=== PATIENT | male | born 1950 | race Caucasian/White ===

== ENCOUNTER 2019-11-10 14:40 | Emergency (ER) | payer MEDICARE, SELFPAY ==
--- NOTE | ~2019-11-10 | XR_ITS ---
EXAMINATION: XR chest 1V portable DATE: 11/10/2019 15:57 INDICATION: Shortness of breath TECHNIQUE: frontal view of the chest was obtained. COMPARISON: Chest radiograph dated 09/06/18 FINDINGS: Calcified nodule at the right lung base. Lungs remain otherwise clear with no focal airspace opacitie s, pulmonary edema, pleural effusion or pneumothorax. The cardiomediastinal silhouette is normal. Mil d scattered degenerative skeletal changes. IMPRESSION: 1. No acute cardiopulmonary disease. Reviewed, dictated and finalized at location A. [employer]
[2019-11-10 14:45] VITALS: BP 121/59; PULSE 72; RESP 20; O2SAT 100
--- NOTE | 2019-11-10 15:40 | ED.ARRPALP ---
HPI - Arrhythmia/Palpitations General Chief Complaint: Shortness of Breath/Dyspnea Time Seen by Provider: 11/10/19 15:34 Source: patient and RN notes reviewed Mode of arrival: ambulatory Limitations: no limitations History of Present Illness HPI narrative: A 69 y/o male, with a hx of A-fib, presents to the ED with palpitations and a rapid HR beginning 3 hours ago. He states that he took his HR while at home and it was in the 120's, so he decided to come to the ED. He reports associated SOB. He denies anything aggravating or alleviating his symptoms in particular, but notes that they have since resolved. He denies any CP, fevers, chills, cough, N/V/D, ABD pain, or any other medical complaints at this time. MD complaint: rapid heart beat and palpitations Onset (ago): hour(s) (3) Duration: now resolved Arrhythmia history: atrial fibrillation Associated symptoms: shortness of breath Related Data Home Medications Medication Instructions Recorded Confirmed apixaban 5 mg tablet 5 mg PO BID 08/08/19 08/09/19 atorvastatin 80 mg tablet 80 mg PO DAILY 08/08/19 08/09/19 calcium carbonate 600 mg calcium 600 mg PO DAILY 08/08/19 08/09/19 (1,500 mg) tablet clopidogrel 75 mg tablet 75 mg PO DAILY 08/08/19 08/09/19 docusate sodium 100 mg capsule 100 mg PO DAILY 08/08/19 08/09/19 doxycycline hyclate 100 mg capsule 100 mg PO DAILY 08/08/19 08/09/19 folic acid 20 mg capsule 20 mg PO DAILY 08/08/19 08/09/19 melatonin 5 mg capsule mg PO .QHS cap 08/08/19 08/09/19 pantoprazole 40 mg tablet,delayed 40 mg PO QAM 08/08/19 08/09/19 release ramipril 10 mg capsule 10 mg PO BID 08/08/19 08/09/19 tamsulosin 0.4 mg capsule 0.4 mg PO DAILY 08/08/19 08/09/19 torsemide 20 mg tablet 20 mg PO QAM 08/08/19 08/09/19 Allergies Allergy/AdvReac Type Severity Reaction Status Date / Time adhesive tape Allergy Unknown RASH Verified 11/10/19 16:30 codeine Allergy Unknown Unknown Verified 11/10/19 16:30 latex Allergy Unknown Unknown Verified 11/10/19 16:30 morphine Allergy Unknown Unknown Verified 11/10/19 16:30 warfarin Allergy Unknown Unknown Verified 11/10/19 16:30 Review of Systems Review of Systems: All systems reviewed & are unremarkable except as noted in HPI and below Constitutional: Constitutional: Denies chills, Denies fever(s), Denies headache(s) and Denies weakness Eyes: Eyes: Denies blurry vision ENT: Denies headache(s) and Denies neck pain Cardiovascular: Cardiovascular: Denies chest pain, Reports palpitations (resolved) and Reports dyspnea (resolved) Respiratory: Respiratory: Denies cough Gastrointestinal: Gastrointestinal: Denies abdominal pain, Denies diarrhea, Denies nausea and Denies vomiting Genitourinary: Genitourinary: Denies hematuria and Denies dysuria Musculoskeletal: Musculoskeletal: Denies back pain and Denies neck pain Neurologic: Denies headache(s) and Denies weakness [facility] Past Medical History Medical History (Updated 11/10/19 @ 20:[address] MD) A-fib Anemia BPH (benign prostatic hyperplasia) CAD (coronary artery disease) CHF (congestive heart failure) CKD (chronic kidney disease) Collar bone fracture COPD (chronic obstructive pulmonary disease) CVA (cerebral vascular accident) Depression Dialysis patient DM (diabetes mellitus) DVT (deep venous thrombosis) GERD (gastroesophageal reflux disease) H/O: HTN (hypertension) History of kidney stones History of pneumonia Hx of hiatal hernia Hx of transient ischemic attack (TIA) Hypercholesteremia PVD (peripheral vascular disease) Seroma Surgical History Surgical History (Updated 11/10/19 @ 16:18 by Aubrey Avilez) History of angioplasty History of carotid endarterectomy History of local excision of skin lesion History of repair of hiatal hernia History of vascular surgery Hx of cardiac cath Hx of heart artery stent Family History Family History (Updated 01/08/17 @ 23:56 by DOCTOR UNKNOWN) Mother Family history of malignant neoplasm
[2019-11-10 16:04] LABS: Basophils Absolute Auto 0.1 K/mm3 (0.0-0.1); Basophils Percent Auto 0.5 % (0.2-1.2); Eosinophils Absolute Auto 0.3 K/mm3 (0-0.3); Eosinophils Percent Auto 2.5 % (0-4.4); Hematocrit 36.2 % (42.0-52.0); Hemoglobin 11.6 g/dL (14.0-18.0); Immature Granulocyte Absolute 0.06 K/mm3 (0.00-0.031); Immature Granulocyte Percent A 0.5 % (0-0.5); Lymphocytes Absolute Auto 1.32 K/mm3 (0.9-3.2); Lymphocytes Percent Auto 12.1 % (18.3-44.2); Mean Corpuscular Hemoglobin 31.9 pg (26-34); Mean Corpuscular Volume 99.5 fl (80-100); Mean Platelet Volume 12.4 fl (7.4-10.4); Monocytes Absolute Auto 0.9 K/mm3 (0.1-0.6); Monocytes Percent Auto 8.1 % (2.6-8.5); Neutrophils Absolute Auto 8.3 K/mm3 (1.3-6.7); Neutrophils Percent Auto 76.3 % (45.5-73.1); Platelet Count Result 216 k/mm3 (150-375); Red Blood Count 3.64 M/mm3 (4.6-6.20); Red Cell Distribution Width 15.8 % (11.5-14.5); White Blood Count 10.9 K/mm3 (4.5-10.0)
[2019-11-10 16:14] LABS: INR 1.1
[2019-11-10 16:15] LABS: Partial Thromboplastin Time 31.2 SECONDS (22.3-36.8)
[2019-11-10 16:20] LABS: Alanine Aminotransferase 23 U/L (4-50); Albumin Level 3.7 g/dL (3.5-5.1); Alkaline Phosphatase 68 U/L (38-126); Aspartate Amino Transferase 26 U/L (17-59); Bilirubin,Total 0.3 mg/dL (0.2-1.3); Blood Urea Nitrogen 41 mg/dL (9-20); Calcium 8.2 mg/dL (8.4-10.2); Carbon Dioxide 27 mmol/L (22-30); Chloride 96 mmol/L (98-107); Estimated Glomerular Filt Rate 8; Glucose 72 mg/dL (75-110); Sodium 138 mmol/L (137-145)
[2019-11-10 16:26] LABS: Add Urine Microscopic? YES; Appearance Urine Cloudy (Clear); Bilirubin Urine Negative (Negative); Blood Urine 3+ (Negative); Color Urine Yellow (Yellow); Glucose Urine UA 3+ mg/dL (Negative); Hyaline Casts Urine 20-29 /lpf; Ketones Urine Negative (Negative); Leukocyte Esterase Ur Negative LEU/UL (Negative); Mucus Urine Rare /lpf; Nitrate Urine Negative (Negative); Protein Urine 2+ mg/dL (Negative); RBC Urine >75 /hpf (0-2); Squamous Epithelial Cell Urine Rare /hpf (Few); Urobilinogen Urine Negative mg/dL (<2.0)
[2019-11-10 16:34] LABS: Specific Grav Ur 1.033 (1.001-1.035)
[2019-11-10 16:37] LABS: Troponin I 0.114 ng/mL (0.000-0.034)
--- NOTE | 2019-11-10 16:44 | ECG_ITS ---
Measurements Intervals [place] Rate: 71 P: [place]: 0 QRS: -2 QRSD: 113 T: 144 QT: 446 QTc: 486 Interpretive Statements SINUS RHYTHM WITH FIRST DEGREE AV BLOCK ATRIAL AND VENTRICULAR PREMATURE COMPLEXES INTRAVENTRICULAR CONDUCTION DELAY CANNOT RULE OUT SEPTAL INFARCT, AGE INDETERMINATE INFERIOR INFARCT, AGE INDETERMINATE BORDERLINE ST-T WAVE ABNORMALITY- LATERAL LEADS ABNORMAL ECG Electronically Signed On 11-11-2019 7:25:10 FULLING MACHINE OPERATOR by Sadiq Dobson D.O.
[2019-11-10 19:23] VITALS: PULSE 91
[2019-11-10 19:27] VITALS: BP 154/73; PULSE 86; RESP 15; O2SAT 100
[2019-11-10 19:27] LABS: Troponin I 0.111 ng/mL (0.000-0.034)
[2019-11-10 20:24] VITALS: BP 148/76; PULSE 93; RESP 18; TEMP 36.7; O2SAT 100
== END 2019-11-10 20:27 | disposition home or self-care (01) ==
PROVIDERS: Emergency Provider Emergency Medicine; PCP Family Medicine
DX: I48.91 Unspecified atrial fibrillation (principal); E11.22 Type 2 diabetes mellitus with diabetic chronic kidney disease; I13.2 Hypertensive heart and chronic kidney disease with heart failure and with stage 5 chronic kidney disease, or end stage renal disease; N18.6 End stage renal disease; Z99.2 Dependence on renal dialysis; N40.0 Benign prostatic hyperplasia without lower urinary tract symptoms; I25.10 Atherosclerotic heart disease of native coronary artery without angina pectoris; J44.9 Chronic obstructive pulmonary disease, unspecified; K21.9 Gastro-esophageal reflux disease without esophagitis; E78.00 Pure hypercholesterolemia, unspecified; E11.51 Type 2 diabetes mellitus with diabetic peripheral angiopathy without gangrene; Z86.73 Personal history of transient ischemic attack (TIA), and cerebral infarction without residual deficits; Z87.442 Personal history of urinary calculi; Z86.718 Personal history of other venous thrombosis and embolism; Z95.5 Presence of coronary angioplasty implant and graft; Z79.01 Long term (current) use of anticoagulants; Z87.891 Personal history of nicotine dependence
CPT/HCPCS: 36415; 71045; 80053; 81001; 84484; 85025; 85610; 85730; 93005; 99284

== ENCOUNTER 2020-05-10 14:36 | Outpatient (CLI) | payer MEDICARE, SELFPAY ==
--- NOTE | ~2020-05-10 | XR_ITS ---
EXAMINATION: XR abdomen/kub 1V EXAM DATE: 05/10/2020 15:16 INDICATION: Peritoneal dialysis catheter malfunction. TECHNIQUE: Frontal projection of the upper abdomen, frontal projection lower abdomen/pelvis for inter pretation. Comparison is made to prior examination from 09/14/2016. FINDINGS: Peritoneal dialysis catheter identified, line appears intact with coil in the pelvis. Ther e are iliac arterial stents. There is right superficial femoral arterial stent. Calcified vasa defere ntia, finding can be seen with diabetes. Nonobstructive bowel gas pattern. Mild to moderate bony dege nerative changes. IMPRESSION: Dialysis catheter without evidence of break. Reviewed, dictated and finalized at location A.
== END 2020-05-10 14:37 | disposition home or self-care (01) ==
PROVIDERS: PCP Family Medicine; Visit Provider Internal Medicine Nephrology
DX: T85.611A Breakdown (mechanical) of intraperitoneal dialysis catheter, initial encounter (principal)
CPT/HCPCS: 74018

== ENCOUNTER 2020-07-08 13:47 | Outpatient (CLI) | payer MEDICARE, SELFPAY ==
--- NOTE | ~2020-07-08 | US_ITS ---
EXAMINATION: US thyroid EXAM DATE: 07/08/2020 14:30 INDICATION: Thyroid nodules. TECHNIQUE: Multiple grayscale and Doppler images of the thyroid were obtained (by a technologist who performed the scan) and subsequently reviewed. Individual nodules and recommendations may be reporte d in accordance with TI-RADS system as designated by the 2017 ACR White Paper TI-RADS committee. Comp suze is made to prior examination from 06/06/2019. FINDINGS: The right thyroid lobe measures 5.0 x 1.5 x 1.9 cm, the left measuring 4.4 x 1.7 x 2.4 cm. Mildly het erogeneous thyroid echogenicity with scattered subcentimeter thyroid nodules, which are not likely cl inically significant. The previously described 1.1 cm left thyroid lobe nodule not well visualized to day, may still be present but now with isoechoic parenchyma which would make it a category TR 3 nodul e. IMPRESSION: Mild thyromegaly with small nodules not likely clinically significant. May return to cl inical follow-up and if additional palpable abnormality develops a repeat ultrasound obtained. Reviewed, dictated and finalized at location B. IMPRESSION: Mild thyromegaly with small nodules not likely clinically significa nt. May return to clinical follow-up and if additional palpable abnormality d evelops a repeat ultrasound obtained.
== END 2020-07-08 13:48 | disposition home or self-care (01) ==
PROVIDERS: PCP Family Medicine; Visit Provider Internal Medicine Endocrinology, Diabetes & Metabolism
DX: E01.0 Iodine-deficiency related diffuse (endemic) goiter (principal); E11.22 Type 2 diabetes mellitus with diabetic chronic kidney disease; I12.0 Hypertensive chronic kidney disease with stage 5 chronic kidney disease or end stage renal disease; N18.5 Chronic kidney disease, stage 5
CPT/HCPCS: 76536

== ENCOUNTER 2021-03-04 15:49 | Outpatient (CLI) | payer MEDICARE, SELFPAY ==
--- NOTE | ~2021-03-04 | XR_ITS ---
XR chest 2V DATE: 03/04/2021 16:13 INDICATION: Cough, shortness of breath, congestion. TECHNIQUE: AP and lateral views COMPARISON: 11/10/2019 portable AP chest FINDINGS: Left-sided triple lead cardiac pacemaker device with leads overlying right atrium, right ve ntricle and coronary sinus. Heart size appears within normal range. Is aortic calcification. Dual lumen right central venous catheter tip overlies the right atrium. No pulmonary infiltrate or consolidation, pleural effusion or pulmonary vascular congestion or pneumo thorax. IMPRESSION: Interval triple lead cardiac pacemaker placement since numerous Right internal jugular central venous catheter in right atrium No active cardiopulmonary disease Aortic calcification Reviewed, dictated and finalized at location A. IMPRESSION: Interval triple lead cardiac pacemaker placement since numerous 04/2020 Right internal jugular central venous catheter in right atrium No active cardiopulmonary disease Aortic calcification
== END 2021-03-04 15:50 | disposition home or self-care (01) ==
LOC: ANHIMG 15:55
PROVIDERS: PCP Family Medicine; Visit Provider Nurse Practitioner Family
DX: R05 Cough (principal); Z95.0 Presence of cardiac pacemaker; Z95.9 Presence of cardiac and vascular implant and graft, unspecified; I70.0 Atherosclerosis of aorta
CPT/HCPCS: 71046

== ENCOUNTER 2021-06-03 13:16 | Inpatient (IN) | payer MEDICARE, SELFPAY ==
[2021-06-03] VITALS (12 sets, daily range): BP systolic 134–176; BP diastolic 50–97; PULSE 69–79; RESP 15–28; TEMP 36.8–38.1; O2SAT 95–100; BMI 23.8
--- NOTE | ~2021-06-03 | XR_ITS ---
EXAMINATION: XR barium swallow modified DATE: 06/06/2021 09:46 INDICATION: History of stroke and cough TECHNIQUE: Modified barium esophagram was performed by myself to administered fluoroscopy, in conjun ction with speech pathologist who administered barium in varying consistencies as per speech patholog ist documentation. This was recorded on tape. A single fluoroscopic spot image was recorded. The DAP for this procedure was 3.628 Gycm2. Fluoroscopy exposure time was 3.5 minutes. FINDINGS: Oral stage: Adequate function. Pharyngeal phase: Adequate function. Laryngeal penetration: Trace within liquids. Aspiration: None. Laryngeal sensitivity: Present. IMPRESSION: Trace laryngeal penetration with thin liquids. Please refer to speech pathologist finding s and specific feeding recommendations. Reviewed, dictated and finalized at location A. IMPRESSION: Trace laryngeal penetration with thin liquids. Please refer to terence pagan pathologist findings and specific feeding recommendations.
--- NOTE | ~2021-06-03 | CT_ITS ---
EXAMINATION: CT brain wo con DATE: 06/05/2021 16:35 INDICATION: Seizure. TECHNIQUE: Computed tomography (CT) of the head was performed without intravenous contrast. The mA wa s adjusted according to patient size. Iterative reconstruction technique was employed. The dose-lengt h product was 605.33 mGy-cm. COMPARISON: Head CT 12/26/2017 FINDINGS: There is a large distribution of chronic encephalomalacia involving left frontal, parietal, temporal, and occipital lobes, left insula, left basal ganglia, and left thalamus in the expected di stribution of left middle cerebral artery. There are dystrophic calcifications of posterior left thal amus. There is an old infarct in right cerebellum. There is an old infarcts in the right frontal and parietal lobes. There is an old infarct in the right lentiform nucleus. There is no intracranial hemo rrhage, acute infarction, or abnormal intracranial mass lesion. The ventricles are normal in size. Th e orbits are normal. There is mild mucosal thickening in the ethmoid sinuses. The mastoid air cells a re normal. IMPRESSION: 1. Old infarcts in the brain, worsened from 12/26/2017. Reviewed, dictated and finalized at location A.
--- NOTE | ~2021-06-03 | US_ITS ---
EXAMINATION: US abdomen limited DATE: 06/05/2021 11:40 INDICATION: Elevated liver function tests TECHNIQUE: Multiple grayscale and Doppler ultrasound images of the abdomen were obtained. COMPARISON: 02/22/[address] dated 06/03/2021 FINDINGS: Bowel gas obscures visualization of the pancreas. The liver is normal with normal echogenic ity and echotexture. No surface nodularity. Normal hepatopetal flow in the main portal vein. Stones a re present in the gallbladder. The mildly thickened gallbladder wall measures up to 5 mm. No perichol ecystic fluid is identified. The normal common bile duct measures 3 mm. IMPRESSION: 1. Cholelithiasis and gallbladder wall thickening. Findings are equivocal for acute cholecystitis. Co nsider nuclear hepatobiliary scan. Reviewed, dictated and finalized at location A. IMPRESSION: 1. Cholelithiasis and gallbladder wall thickening. Findings are equivocal for a cute cholecystitis. Consider nuclear hepatobiliary scan.
--- NOTE | ~2021-06-03 | CT_ITS ---
EXAMINATION: CT abdomen pelvis wo con EXAM DATE: 06/03/2021 14:51 INDICATION: Nausea vomiting. On dialysis. Dark urine. Unable to speak. TECHNIQUE: Spiral CT of the abdomen and pelvis was performed without contrast. Axial, coronal and s agittal images of the abdomen and pelvis were reviewed. The dose-length product (DLP) for this exami nation was 974.12 mGy-cm. The exposure was tailored according to patient size (auto mA exposure cont rol), and iterative reconstruction (ASIR) was used as additional dose reduction technique. Comparison is made to prior examination from 02/20/2018. FINDINGS: Bilateral gynecomastia. Left adrenal hyperplasia. The liver, spleen, adrenal glands and donaldson creas are otherwise unremarkable. Punctate bilateral nephrolithiasis. There is bilateral renal servando ical thinning. No hydronephrosis. Mild prostatomegaly. Probable bilateral nephrolithiasis. The bladd er is unremarkable. There is no retroperitoneal or pelvic lymphadenopathy. There is extensive scat tered arterial sclerotic disease. The appendix is normal. The stomach and small bowel are unremarkable. There is expected amount of c olonic stool. No free intraperitoneal gas. Small bilateral pleural effusions. The lung bases are unremarkable. There are no osteoblastic or osteolytic lesions identified. IMPRESSION: 1. Small pleural effusions. 2. Chronic findings as above. Reviewed, dictated and finalized at location B.
--- NOTE | ~2021-06-03 | NM_ITS ---
EXAMINATION: NM hepatobiliary w pharm DATE: 06/10/2021 10:29 INDICATION: Acute cholecystitis. COMPARISON: Ultrasound 06/05/2021, CT abdomen and pelvis 06/03/2021 TECHNIQUE: 5.5 mCi Tc-99m mebrofenin (Choletec) was administered intravenously. Scintigraphic images of the abdomen were obtained for one hour. Then, 1.8 mcg sincalide (Kinevac) IV was administered, an d imaging was continued for 30 minutes. FINDINGS: There is normal clearance of radiotracer from the blood pool. There is homogeneous tracer u ptake by the liver. Activity progresses to the bowel and gallbladder. Gallbladder ejection fraction (GBEF) was 73%. Note that most patients with gallbladder dysfunction have GBEF < 35%, which overlaps with the broad normal range of 10-90%. IMPRESSION: 1. Normal hepatobiliary scintigraphy. Reviewed, dictated and finalized at location A.
--- NOTE | ~2021-06-03 | XR_ITS ---
EXAMINATION: XR chest 1V portable EXAM DATE: 06/05/2021 08:32 INDICATION: Shortness of breath. TECHNIQUE: Portable AP frontal chest x-ray was obtained. Comparison is made to prior examination from 06/03/2021. FINDINGS: There is a right-sided IJ Meraz catheter. Multi lead pacemaker/AICD device. The lungs are clear. There are no pleural effusions. Cardiac silhouette is prominent but magnified on this AP te chnique. There is no pneumothorax suspected. The bones and soft tissues are unremarkable. IMPRESSION: No acute cardiopulmonary findings. Reviewed, dictated and finalized at location B.
--- NOTE | ~2021-06-03 | XR_ITS ---
EXAMINATION: XR chest 2V EXAM DATE: 06/03/2021 13:41 INDICATION: Weakness, nausea vomiting. History COPD, CHF. TECHNIQUE: Frontal and lateral projections of the chest obtained and reviewed. Comparison is made to prior examination from 03/04/2021. FINDINGS: Double-lumen dialysis catheter in position. There is multi lead pacemaker/AICD device. No confluent consolidation, pneumothorax or pleural effusion suspected. The cardiomediastinal silhouette is prominent but magnified on this AP technique. There are mild bony degenerative changes. IMPRESSION: 1. No acute cardiopulmonary findings. Reviewed, dictated and finalized at location B.
--- NOTE | 2021-06-03 13:26 | ECG_ITS ---
Measurements Intervals [place] Rate: 69 P: [place]: 0 QRS: 122 QRSD: 149 T: 104 QT: 480 QTc: 517 Interpretive Statements ELECTRONIC VENTRICULAR PACEMAKER UNDERLYING ATRIAL FLUTTER/TACHYCARDIA BASELINE ARTIFACT- I, III, AVR, AVL, AVF NO FURTHER INTERPRETATION IS POSSIBLE ABNORMAL ECG Electronically Signed On 06-03-2021 13:38:09 CDT by Sadiq Dobson D.O.
[2021-06-03 13:36] LABS: Basophils Absolute Auto 0.1 K/mm3 (0.0-0.1); Basophils Percent Auto 0.6 % (0.2-1.2); Eosinophils Absolute Auto 0.1 K/mm3 (0-0.3); Eosinophils Percent Auto 0.3 % (0-4.4); Hematocrit 34.6 % (42.0-52.0); Hemoglobin 10.6 g/dL (14.0-18.0); Immature Granulocyte Absolute 0.08 K/mm3 (0.00-0.031); Immature Granulocyte Percent A 0.5 % (0-0.5); Lymphocytes Absolute Auto 1.23 K/mm3 (0.9-3.2); Lymphocytes Percent Auto 7.8 % (18.3-44.2); Mean Corpuscular HGB Conc 30.6 g/dl (32-36); Mean Corpuscular Hemoglobin 27.2 pg (26-34); Mean Corpuscular Volume 88.9 fl (80-100); Mean Platelet Volume 10.8 fl (7.4-10.4); Monocytes Absolute Auto 1.2 K/mm3 (0.1-0.6); Monocytes Percent Auto 7.5 % (2.6-8.5); Neutrophils Absolute Auto 13.1 K/mm3 (1.3-6.7); Neutrophils Percent Auto 83.3 % (45.5-73.1); Platelet Count Result 327 k/mm3 (150-375); Red Blood Count 3.89 M/mm3 (4.6-6.20); Red Cell Distribution Width 16.3 % (11.5-14.5); White Blood Count 15.7 K/mm3 (4.5-10.0)
[2021-06-03 13:50] LABS: INR 1.2; Prothrombin Time 14.6 Seconds (11.1-14.7)
[2021-06-03 14:11] LABS: Alanine Aminotransferase 33 U/L (4-50); Albumin Level 4.2 g/dL (3.5-5.1); Alkaline Phosphatase 318 U/L (38-126); Anion Gap 19 mmol/L (8-16); Aspartate Amino Transferase 54 U/L (17-59); Bilirubin,Total 0.9 mg/dL (0.2-1.3); Blood Urea Nitrogen 29 mg/dL (9-20); Calcium 9.2 mg/dL (8.4-10.2); Carbon Dioxide 23 mmol/L (22-30); Chloride 92 mmol/L (98-107); Estimated CRCL calculation 16 ml/min; Estimated Glomerular Filt Rate 14; Glucose 203 mg/dL (65-110); Sodium 134 mmol/L (137-145)
[2021-06-03] MEDS: ONDANSETRON INJ 4 MG/2 ML VIAL IV PUSH (14:17)
--- NOTE | 2021-06-03 14:29 | ED.WEAKNESS ---
HPI - Weakness General Chief complaint: Weakness Stated complaint: weakness Time Seen by Provider: 06/03/21 13:48 Source: family and RN notes reviewed Limitations: physical limitation and clinical condition History of Present Illness HPI Narrative: Patient 71 years old white male, hemodialysis patient brought to the emergency room by his from home complaining of gradual increase of weakness over the last 5 days. Vomiting over the last 24 hours, history of stroke with expressive aphasia, patient is nonverbal, still me that since last of stroke August 2021 patient been congested with intermittent flareup. Patient is fully vaccinated for COVID-19, patient is full code. The denied that the patient have any abdominal pain Related Data Home Medications Medication Instructions Recorded Confirmed folic acid 20 mg capsule 20 mg PO DAILY 08/08/19 05/15/21 pantoprazole 40 mg tablet,delayed 40 mg PO QAM 08/08/19 05/15/21 release diphenhydramine 25 1 tablet PO Q4H PRN 01/23/20 05/15/21 mg-acetaminophen 500 mg tablet apixaban 5 mg tablet 2.5 mg PO BID tablet 01/16/21 05/15/21 clopidogrel 75 mg tablet 75 mg PO DAILY tablet 01/16/21 05/15/21 glucagon 1 mg/0.2 mL subcutaneous 1 mg SUBCUT ONCE ml 02/27/21 05/15/21 auto-injector metoprolol tartrate 25 mg tablet 25 mg PO BID tablet 03/10/21 05/15/21 sevelamer HCl 800 mg tablet 800 mg PO TID 03/10/21 05/15/21 Allergies Allergy/AdvReac Type Severity Reaction Status Date / Time adhesive tape Allergy Unknown RASH Verified 05/15/21 09:12 codeine Allergy Unknown Unknown Verified 05/15/21 09:12 latex Allergy Unknown Unknown Verified 05/15/21 09:12 morphine Allergy Unknown Unknown Verified 05/15/21 09:12 warfarin [From Coumadin] AdvReac Mild Unknown Verified 05/15/21 09:12 Review of Systems Review of Systems: ROS unobtainable: Yes unobtainable due to medical condition and unobtainable due to mental status PMFSH Past Medical History Medical History A-fib Adult BMI 26.0-26.9 kg/sq m Anemia Anemia, unspecified Benign prostatic hyperplasia without lower urinary tract symptoms BPH (benign prostatic hyperplasia) CAD (coronary artery disease) CHF (congestive heart failure) CKD (chronic kidney disease) Collar bone fracture COPD (chronic obstructive pulmonary disease) Coronary artery disease involving [place] artery of transplanted heart CVA (cerebral vascular accident) Depression Dialysis patient DM (diabetes mellitus) DVT (deep venous thrombosis) Fistula, right hand GERD (gastroesophageal reflux disease) H/O: HTN (hypertension) Hearing loss History of kidney stones History of pneumonia Hx of hiatal hernia Hx of transient ischemic attack (TIA) Hypercholesteremia Hypothyroidism MDD (major depressive disorder) MRSA (methicillin resistant Staphylococcus aureus) Peripheral vascular disease PVD (peripheral vascular disease) Scarring of lung Seroma Thyroid nodule Surgical History Surgical History History of angioplasty History of carotid endarterectomy History of local excision of skin lesion History of repair of hiatal hernia History of vascular surgery Hx of cardiac cath Hx of heart artery stent Family History Family History Mother Family history of malignant neoplasm Family history of lung cancer, Onset Age: 65 Patient's mother is Tobacco abuse Sibling Family history of diabetes mellitus in first degree relative, Onset Age: 52 Family history of malignant neoplasm of kidney Patient's sister is Patient's brother is Father Patient's father is Cerebral brain hemorrhage Sibling Patient's brother is Diabetes mellitus Other Family history of coronary artery disease Social History Social History (Review
[2021-06-03 16:56] LABS: Add Urine Microscopic? YES; Appearance Urine Cloudy (Clear); Bilirubin Urine Negative (Negative); Blood Urine 2+ (Negative); Color Urine Amber (Yellow); Glucose Urine UA 1+ mg/dL (Negative); Ketones Urine Negative (Negative); Leukocyte Esterase Ur 3+ LEU/UL (Negative); Nitrate Urine Negative (Negative); Protein Urine 3+ mg/dL (Negative); RBC Urine 51-75 /hpf (0-2); Specific Grav Ur 1.022 (1.001-1.035); Squamous Epithelial Cell Urine Rare /hpf (Few); Urobilinogen Urine Negative mg/dL (<2.0); WBC Clumps Urine Present /HPF; WBC Urine >75 /hpf
[2021-06-03 17:00] LABS: Bacteria Urine Trace /hpf
[2021-06-03] MEDS: SODIUM CHLORIDE 0.9% IV 1,000 ML 75 ML IV CONT (17:14)
--- NOTE | 2021-06-03 17:31 | ADMGEN ---
This patient, Garrett Benson, was admitted to [facility] S[facility] Room 314-01. Patient/family oriented to hospital policies and general routines including ID bracelet, bed and alarms, visiting hours, pain management, procedures, bathroom and other care routines, personal items, smoking policy, room service/diet, and visiting hours. Information on how to activate the Rapid Response Team has been discussed. Patient/Family are encouraged to report perceived risks to care and to ask questions if they do not understand what they are told or what they should do.
--- NOTE | 2021-06-03 21:56 | PM.IMHP ---
H&P: HPI History of Present Illness Date/Time: 06/03/21 21:56 this is a 71 year old white male who has a history of end-stage renal disease on dialysis Wednesday and Wednesday. The patient had dialysis yesterday. The patient has gradually gotten increasingly more weak over the last 5 days. The patient has been vomiting over last 24 hours. The patient has wheezing to the upper airway. The patient has had a swallow study in the past after his stroke December of this year. The patient was able to swallow without difficulty. The patient's is at the bedside and she denies any aspiration. The patient has been nonverbal with expressive aphasia and the right side is flaccid from his stroke December of this year. The patient is fully vaccinated for COVID-19. White count noted to be 15.7 H&H 10.6 and 34.6. Sodium 134 BUN 29 and creatinine 4.3. The patient was started on Zosyn for urinary tract infection and possibility of aspiration. Chest x-ray was read as no acute cardiopulmonary findings. Abdominal pelvis CT was read as small pleural effusions. Chronic findings. The patient is being admitted to inpatient status on the date of service of 06/03/2021. Chief Complaint: Weakness Review of Systems Review of Systems: All systems reviewed & are unremarkable except as noted in HPI and below Constitutional: Constitutional: Reports as per HPI and Reports no additional constitutional complaints Eyes: Eyes: Reports as per HPI and Reports no additional eye complaints ENT: Reports system reviewed and no additional complaints, except as documented and Reports Normal hearing present Cardiovascular: Cardiovascular: Reports no additional cardiovascular complaints Respiratory: Respiratory: Reports no additional respiratory complaints and Reports no additional respiratory complaints Gastrointestinal: Gastrointestinal: Reports as per HPI and Reports no additional gastrointestinal complaints Musculoskeletal: Musculoskeletal: Reports no additional musculoskeletal complaints Integumentary/Breasts: Skin/Breast: Reports system reviewed and no additional complaints, except as docu and Reports as per HPI Neurologic: Reports system reviewed and no additional complaints, except as documented, Reports as per HPI and Reports Normal hearing present Psychiatric: Psychiatric: Reports no additional psychiatric complaints and Reports as per HPI Endocrine: Endocrine: Reports no additional endocrine complaints Hematologic/Lymphatic: Hematologic/Lymphatic: Reports no additional hematologic/lymphatic complaints Allergic/Immunologic: Allergic/Immunologic: Reports no additional allergic/immunologic complaints [facility] Past Medical History Medical History (Updated 06/03/21 @ 22:20 by Yolande Castellanos NP) A-fib Adult BMI 26.0-26.9 kg/sq m Anemia Anemia, unspecified Benign prostatic hyperplasia without lower urinary tract symptoms BPH (benign prostatic hyperplasia) CAD (coronary artery disease) CHF (congestive heart failure) CKD (chronic kidney disease) Collar bone fracture COPD (chronic obstructive pulmonary disease) Coronary artery disease involving [place] artery of transplanted heart CVA (cerebral vascular accident) Depression Dialysis patient DM (diabetes mellitus) DVT (deep venous thrombosis) Fistula, right hand Removed due to steal syndrome GERD (gastroesophageal reflux disease) H/O: HTN (hypertension) Hearing loss History of kidney stones History of pneumonia Hx of hiatal hernia Hx of transient ischemic attack (TIA) Hypercholesteremia Hyperlipidemia Hypertension Hypothyroidism MDD (major depressive disorder) MRSA (methicillin resistant Staphylococcus aureus) Peripheral vascular disease PVD (peripheral vascular disease) Scarring of lung Seroma Thyroid nodule Surgical History Surgical History History of angioplasty History of carotid endarterectomy History of local excision of skin lesion His
[2021-06-03] MEDS: APIXABAN 2.5 MG TABLET PO (23:32)
[2021-06-03] MEDS: diphenhydrAMINE HCl CAP 25 MG CAPSULE PO (23:32)
[2021-06-03] MEDS: CLOPIDOGREL BISULFATE 75 MG TABLET PO (23:32)
[2021-06-03] MEDS: METOPROLOL TARTRATE 25 MG TABLET PO (23:33)
[2021-06-03] MEDS: GABAPENTIN 300 MG CAPSULE PO (23:33)
[2021-06-03] MEDS: PANTOPRAZOLE 40 MG TABLET PO (23:33)
[2021-06-03] MEDS: ATORVASTATIN 40 MG TABLET 80 MG PO (23:34)
[2021-06-03] MEDS: methylPREDNISolone SOD SUCC 40 MG VIAL IV PUSH (23:34)
[2021-06-04] VITALS (19 sets, daily range): BP systolic 145–176; BP diastolic 50–83; PULSE 69–75; RESP 18–22; TEMP 36.5–37.4; O2SAT 93–100; BMI 23.8
[2021-06-04] MEDS: methylPREDNISolone SOD SUCC 40 MG VIAL IV PUSH (05:14)
[2021-06-04] MEDS: ONDANSETRON INJ 4 MG/2 ML VIAL IV PUSH (05:17)
[2021-06-04 06:48] LABS: Basophils Percent Auto 0.1 % (0.2-1.2); Hematocrit 33.2 % (42.0-52.0); Hemoglobin 10.1 g/dL (14.0-18.0); Immature Granulocyte Absolute 0.09 K/mm3 (0.00-0.031); Immature Granulocyte Percent A 0.6 % (0-0.5); Lymphocytes Absolute Auto 0.76 K/mm3 (0.9-3.2); Lymphocytes Percent Auto 5.4 % (18.3-44.2); Mean Corpuscular HGB Conc 30.4 g/dl (32-36); Mean Corpuscular Hemoglobin 26.4 pg (26-34); Mean Corpuscular Volume 86.9 fl (80-100); Mean Platelet Volume 11.2 fl (7.4-10.4); Monocytes Absolute Auto 0.4 K/mm3 (0.1-0.6); Monocytes Percent Auto 2.9 % (2.6-8.5); Neutrophils Absolute Auto 12.7 K/mm3 (1.3-6.7); Platelet Count Result 348 k/mm3 (150-375); Red Blood Count 3.82 M/mm3 (4.6-6.20)
[2021-06-04 07:25] LABS: Lactic Acid Reflex 4.5 mmol/L (0.7-2.1)
[2021-06-04 07:27] LABS: Albumin Level 3.7 g/dL (3.5-5.1); Alkaline Phosphatase 253 U/L (38-126); Anion Gap 17 mmol/L (8-16); Bilirubin,Total 1.1 mg/dL (0.2-1.3); Blood Urea Nitrogen 49 mg/dL (9-20); Calcium 8.3 mg/dL (8.4-10.2); Carbon Dioxide 20 mmol/L (22-30); Chloride 90 mmol/L (98-107); Estimated CRCL calculation 12 ml/min; Estimated Glomerular Filt Rate 10; Glucose 434 mg/dL (65-110); Magnesium 1.7 mg/dL (1.6-2.3); Potassium 6.1 mmol/L (3.4-5.0); Sodium 127 mmol/L (137-145)
[2021-06-04 08:36] LABS: Hemoglobin A1C 7.4 % (<5.7)
[2021-06-04 08:50] LABS: Glucose Point of Care 419 mg/dl (65-105)
[2021-06-04] MEDS: INSULIN ASPART (*BKC) 100 UNITS/ML SUB-Q ×3 (08:56→16:16)
[2021-06-04 09:18] LABS: Alanine Aminotransferase 1909 U/L (4-50); Aspartate Amino Transferase 2942 U/L (17-59)
[2021-06-04] MEDS: ERGOCALCIFEROL 50,000 UNIT CAPSULE 50000 UNITS PO (09:26)
[2021-06-04 09:38] LABS: Reflex Lactic Acid Yes or No Add Lactic
--- NOTE | 2021-06-04 09:39 | PCPTNOTE ---
Attempted PT eval. Pt in dialysis. Will attempt again later.
--- NOTE | 2021-06-04 10:22 | PCSTNOTE ---
Please refer to the Bedside Swallow Evaluation in the EMR. Please note, silent aspiration cannot be ruled out at bedside.
[2021-06-04 10:26] LABS: Lipase 250 U/L (23-300)
[2021-06-04] MEDS: SODIUM CHLORIDE 0.9% IV 1,000 ML 75 ML IV CONT (10:42)
--- NOTE | 2021-06-04 10:47 | PCOTNOTE ---
Attempted to evaluate for occupational therapy. Nurse reports pt. is at dialysis will return to room later today, will follow up.
[2021-06-04 10:52] LABS: Lactic Acid Reflex 4.1 mmol/L (0.7-2.1)
[2021-06-04 10:54] LABS: Albumin Level 3.6 g/dL (3.5-5.1); Alkaline Phosphatase 244 U/L (38-126); Anion Gap 22 mmol/L (8-16); Bilirubin,Total 1.1 mg/dL (0.2-1.3); Blood Urea Nitrogen 53 mg/dL (9-20); Calcium 8.1 mg/dL (8.4-10.2); Carbon Dioxide 18 mmol/L (22-30); Chloride 87 mmol/L (98-107); Estimated CRCL calculation 11 ml/min; Estimated Glomerular Filt Rate 9; Glucose 476 mg/dL (65-110); Magnesium 1.7 mg/dL (1.6-2.3); Potassium 6.7 mmol/L (3.4-5.0); Sodium 127 mmol/L (137-145)
[2021-06-04 11:29] LABS: Hepatitis B Surface Antigen Negative (Negative)
--- NOTE | 2021-06-04 11:30 | PM.PNNEP ---
Progress Note: A&P Assessment and Plan (1) End stage renal disease: Code(s): N18.6 - End stage renal disease Status: Chronic Assessment and Plan: HD today correct/optimize elctrolytes, volume status, and clearance FULL CONSULT to follow. Subjective Date/time seen: 06/04/21 11:30 Tolerating dialysis at the time of my visit (seen on HD at 11:15am); no apparent distress voiced at this time. Exam Narrative: General: ill-appearing male in NAD Heart: IRRR, normal S1 and S2; no rub Lungs: clear anteriorly Abdomen: soft, nontender, nondistended, positive bowel sounds Extremities: no cyanosis or clubbing; no edema Skin: warm and dry Objective Data Vital Signs Vital Signs: Vital Signs Temp Pulse Resp BP Pulse Ox 06/04/21 08:59 70 06/04/21 08:30 70 06/04/21 06:00 36.7 C 70 18 154/52 H 100 06/03/21 23:33 79 06/03/21 23:26 37.6 C 06/03/21 22:00 37.7 C H 69 16 134/97 H 99 06/03/21 20:15 79 16 99 06/03/21 18:40 38.1 C H 137/50 L 06/03/21 17:05 37.8 C H 70 18 98 06/03/21 16:35 69 18 143/62 H 96 06/03/21 16:13 70 15 143/62 H 97 06/03/21 15:04 70 28 H 167/70 H 100 06/03/21 13:48 70 15 159/57 H 100 06/03/21 13:27 78 06/03/21 13:22 36.8 C 72 26 H 176/61 H 95 Intake/Output Intake/Output: Intake & Output 06/01/21 06/02/21 06/03/21 06/04/21 23:59 23:59 23:59 23:59 Intake Total 1525 1050 Output Total 0 Balance 1525 1050 Meds/Results Medications: Active Medications Generic Name Dose Route Start Last Admin Trade Name Freq PRN Reason Stop Dose Admin Acetaminophen 500 mg 06/03/21 22:10 06/03/21 23:32 Acetaminophen 500 Mg Tablet PO Not Given HS [facility] Albuterol 2.5 mg 06/03/21 21:53 Albuterol Sulfate Neb 2.5 Mg/0.5 Ml Inh INHALATION Q4HRT PRN Shortness Of Breath Apixaban 2.5 mg 06/03/21 22:00 06/04/21 09:00 Apixaban 2.5 Mg Tablet PO Not Given BID SPIKE Atorvastatin Calcium 80 mg 06/03/21 22:00 06/03/21 23:34 Atorvastatin 40 Mg Tablet PO 80 mg HS SPIKE Administration Atropine Sulfate 1 drop 06/03/21 20:27 Atropine Sulfate 1% Ophth Soln 5 Ml Bottle SUBLINGUAL Q4H PRN Secretions Clopidogrel Bisulfate 75 mg 06/03/21 22:00 06/03/21 23:32 Clopidogrel Bisulfate 75 Mg Tablet PO 75 mg HS SPIKE Administration Cyanocobalamin 250 mcg 06/04/21 09:00 06/04/21 09:00 Cyanocobalamin 250 Mcg Tablet PO Not Given DAILY SPIKE Dextrose 12.5 gm 06/03/21 21:55 Dextrose 50% 25 Gm/50 Ml Syringe IV PUSH PRN PRN Hypoglycemia Protocol Diphenhydramine HCl 25 mg 06/03/21 22:10 06/03/21 23:32 Diphenhydramine Hcl Cap 25 Mg Capsule PO 07/04/21 22:11 25 mg HS SPIKE Administration Epoetin Matt-epbx 2,000 units 06/04/21 19:10 Epoetin Matt-Epbx 2,000 Units/Ml Vial IV PUSH 06/04/21 19:11 ONCE ONE Epoetin Matt-epbx 3,000 units 06/04/21 19:00 Epoetin Matt-Epbx 3,000 Units/Ml Vial IV PUSH 06/04/21 19:01 ONCE ONE Ergocalciferol 50,000 unit 06/04/21 09:00 06/04/21 09:26 Ergocalciferol 50,000 Unit Capsule PO 50,000 unit MONTHLY SPIKE Administration Fluoxetine HCl 40 mg 06/04/21 09:00 Fluoxetine Hcl 20 Mg Capsule PO DAILY SPIKE Folic Acid 1 mg 06/04/21 09:00 06/04/21 09:00 Folic Acid 1 Mg Tablet PO Not Given QAM SPIKE Gabapentin 300 mg 06/03/21 22:00 06/03/21 23:33 Gabapentin 300 Mg Capsule PO 300 mg HS SPIKE Administration Glucagon 1 mg 06/03/21 21:55 Glucagon For Inj 1 Mg Vial IM PRN PRN Hypoglycemia Protocol Glucose 15 gm 06/03/21 21:55 Glucose Oral Gel 15 Gm Of Glucse In 37.5 Gm Tube PO PRN PRN Hypoglycemia Protocol Sodium Chloride 1,000 mls @ 75 mls/hr 06/03/21 15:00 06/04/21 10:42 Normal Saline Iv IV CONT 75 mls/hr .[id number] SPIKE Administration Acetaminophen 1,000 mg in 100 mls @ 400 mls/hr
[2021-06-04 11:36] LABS: Hepatitis B Surface Antigen Negative (Negative)
[2021-06-04 11:43] LABS: HAV RESULT Negative (Negative); Hepatitis B Core IgM Result Negative (Negative)
[2021-06-04] MEDS: EPOETIN ALFA-EPBX 3,000 UNITS/ML VIAL 3000 UNITS IV PUSH (11:45)
[2021-06-04 11:47] LABS: Hepatitis B Surface Anti Res Negative
[2021-06-04 11:54] LABS: Hepatitis C Virus Antibody Negative (Negative)
[2021-06-04 12:15] LABS: Alanine Aminotransferase 2685 U/L (4-50); Aspartate Amino Transferase 3397 U/L (17-59)
--- NOTE | 2021-06-04 12:34 | PM.IMPN ---
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 He did need much dinner and then began vomiting multiple times. The patient's felt like he was becoming more weak and not feeling well so she brought him to the emergency room for further evaluation. Initial vitals showed blood pressure 176/61, heart rate 72, respiratory rate increased at 26, afebrile, oxygen saturation 95% on room air. Initial labs show leukocytosis to 15,700 with elevated neutrophils, normocytic anemia with a hemoglobin of 10, hematocrit 34, hyponatremia at 134, elevated creatinine of 4.3, BUN 29, glucose 203, normal LFTs. TSH normal. Urinalysis concerning for urinary tract infection and started on IV Zosyn. He was admitted to the hospital which were lysed weakness, IV fluid hydration and antibiotics for possible UTI. Patient's liver functions elevated significantly this morning from 54/33 to 49866/[id number]. DC the patient's IV Tylenol and Zosyn which could have caused the elevation of his liver enzymes CT on arrival showed normal appearance of his liver, pancreas and no acute abnormality for his vomiting. Switched IV antibiotics IV Rocephin #1 for possible urinary tract infection. Pending urine culture and blood culture results. Hepatitis panel is negative. Normal total bilirubin. Lactic acid was elevated at 4.5 which could be from dehydration versus infection. Will recheck in the morning. Will obtain a liver ultrasound Will repeat CMP after dialysis for further evaluation of his potassium since it was hypokalemic at 6.7. He is on telemetry at this time showing paced rhythm at 70 beats per minute with few PVCs noted. No acute arrhythmia noted. (2) LFT elevation: Code(s): R79.89 - Other specified abnormal findings of blood chemistry Status: Acute Assessment and Plan: See under UTI. (3) Elevated lactic acid level: Code(s): R79.89 - Other specified abnormal findings of blood chemistry Status: Acute Assessment and Plan: Elevated lactic acid levels could be secondary to dehydration versus UTI infection verses liver abnormality due to elevated LFTs Continue monitoring in the morning. Continue antibiotics. Will DC IV fluids since he is euvolemic at this time and in dialysis. (4) Weakness generalized: Code(s): R53.1 - Weakness Status: Acute Assessment and Plan: Generalized weakness secondary to stroke verses gastroenteritis versus UTI verses malnutrition The patient had a recent stroke back in December. He has had a decrease in appetite and has been vomiting. Will have PT and OT evaluate the patient. Continue monitoring. (5) Hemodialysis patient: Code(s): Z99.2 - Dependence on renal dialysis Status: Acute Assessment and Plan: The patient has a catheter in the right upper chest. The patient did have AV fistulas right forearm but had to be removed because of steal syndrome. The patient has dialysis on Wednesday and Wednesday. Nephrology on board and he is in dialysis at this time Continue monitoring renal function and electrolytes. Appreciate Nephrology's input. (6) Hypothyroidism: Qualifiers: Hypothyroidism type: due to medication Qualified Code(s): E03.2 - Hypothyroidism due to medicaments and other exogenous substances
[2021-06-04 12:52] LABS: Glucose Point of Care 292 mg/dl (65-105)
--- NOTE | 2021-06-04 12:53 | PCPTNOTE ---
Attempted PT eval/. Pt still in
--- NOTE | 2021-06-04 12:53 | PCPTNOTE ---
Attempted PT eval. Pt still in dialysis. Will try again tomorrow.
[2021-06-04] MEDS: SEVELAMER CARBONATE 800 MG TABLET PO ×2 (13:54→16:19)
[2021-06-04] MEDS: SCOPOLAMINE 1.5 MG PATCH TRANSDERM (14:52)
[2021-06-04 14:59] LABS: Albumin Level 3.9 g/dL (3.5-5.1); Alkaline Phosphatase 273 U/L (38-126); Anion Gap 13 mmol/L (8-16); Bilirubin,Total 1.1 mg/dL (0.2-1.3); Blood Urea Nitrogen 23 mg/dL (9-20); Calcium 8.8 mg/dL (8.4-10.2); Carbon Dioxide 25 mmol/L (22-30); Chloride 98 mmol/L (98-107); Estimated CRCL calculation 20 ml/min; Estimated Glomerular Filt Rate 18; Glucose 238 mg/dL (65-110); Potassium 4.4 mmol/L (3.4-5.0); Sodium 136 mmol/L (137-145)
[2021-06-04 16:00] LABS: Glucose Point of Care 260 mg/dl (65-105)
[2021-06-04] MEDS: APIXABAN 2.5 MG TABLET PO (16:16)
[2021-06-04] MEDS: PANTOPRAZOLE 40 MG TABLET PO (16:16)
[2021-06-04 17:46] LABS: Alanine Aminotransferase > 3750 U/L (4-50); Aspartate Amino Transferase 6039 U/L (17-59)
[2021-06-04] MEDS: GABAPENTIN 300 MG CAPSULE PO (20:56)
[2021-06-04] MEDS: METOPROLOL TARTRATE 25 MG TABLET PO (20:56)
[2021-06-04] MEDS: CLOPIDOGREL BISULFATE 75 MG TABLET PO (20:56)
[2021-06-04] MEDS: diphenhydrAMINE HCl CAP 25 MG CAPSULE PO (21:02)
[2021-06-04 22:56] LABS: Glucose Point of Care 239 mg/dl (65-105)
[2021-06-05] VITALS (11 sets, daily range): BP systolic 148–161; BP diastolic 38–54; PULSE 69–77; RESP 16–28; TEMP 36.1–37.9; O2SAT 90–100
[2021-06-05 07:08] LABS: Hematocrit 33.8 % (42.0-52.0); Hemoglobin 10.3 g/dL (14.0-18.0); Immature Granulocyte Absolute 0.17 K/mm3 (0.00-0.031); Immature Granulocyte Percent A 0.8 % (0-0.5); Lymphocytes Absolute Auto 1.02 K/mm3 (0.9-3.2); Lymphocytes Percent Auto 4.8 % (18.3-44.2); Mean Corpuscular HGB Conc 30.5 g/dl (32-36); Mean Corpuscular Hemoglobin 26.9 pg (26-34); Mean Corpuscular Volume 88.3 fl (80-100); Monocytes Absolute Auto 1.9 K/mm3 (0.1-0.6); Monocytes Percent Auto 8.7 % (2.6-8.5); Neutrophils Absolute Auto 18.3 K/mm3 (1.3-6.7); Neutrophils Percent Auto 85.7 % (45.5-73.1); Nucleated Red Blood Cells Absolute Auto 0.1 K/mm3 (0.0-0.012); Nucleated Red Blood Cells Perc 0.5 % (0.0-0.2); Platelet Count Result 242 k/mm3 (150-375); Red Blood Count 3.83 M/mm3 (4.6-6.20); Red Cell Distribution Width 15.9 % (11.5-14.5); White Blood Count 21.4 K/mm3 (4.5-10.0)
[2021-06-05 07:20] LABS: Lactic Acid Reflex 3.2 mmol/L (0.7-2.1)
[2021-06-05] MEDS: PANTOPRAZOLE 40 MG TABLET PO (07:59)
[2021-06-05] MEDS: FOLIC ACID 1 MG TABLET PO (07:59)
[2021-06-05] MEDS: SEVELAMER CARBONATE 800 MG TABLET PO (07:59)
[2021-06-05] MEDS: APIXABAN 2.5 MG TABLET PO (07:59)
[2021-06-05] MEDS: VITAMIN B CMPLX/VIT C/FOLIC AC 1 CAPSULE 1 CAP BY MOUTH (08:00)
[2021-06-05] MEDS: CYANOCOBALAMIN 250 MCG TABLET PO (08:01)
[2021-06-05 08:03] LABS: Glucose Point of Care 222 mg/dl (65-105)
[2021-06-05] MEDS: METOPROLOL TARTRATE 25 MG TABLET PO (08:03)
[2021-06-05] MEDS: INSULIN GLARGINE (*BKC) 100 UNITS/ML 20 UNITS SUB-Q (08:06)
[2021-06-05] MEDS: INSULIN ASPART (*BKC) 100 UNITS/ML SUB-Q (08:07)
--- NOTE | 2021-06-05 08:20 | PC.NURSE ---
Nick CALHOUN notified that pt appears sob and lung sound with coarse, RA sat 90%. New orders received
[2021-06-05 09:12] LABS: Albumin Level 3.6 g/dL (3.5-5.1); Alkaline Phosphatase 219 U/L (38-126); Anion Gap 17 mmol/L (8-16); Bilirubin,Total 1.1 mg/dL (0.2-1.3); Blood Urea Nitrogen 50 mg/dL (9-20); CRP 6.5 mg/dL (<1.0); Calcium 8.6 mg/dL (8.4-10.2); Carbon Dioxide 18 mmol/L (22-30); Chloride 99 mmol/L (98-107); Estimated CRCL calculation 13 ml/min; Estimated Glomerular Filt Rate 11; Glucose 227 mg/dL (65-110); Potassium 5.1 mmol/L (3.4-5.0); Sodium 134 mmol/L (137-145)
--- NOTE | 2021-06-05 09:27 | PM.CNNEP ---
Assessment and Plan Assessment and plan (1) End stage renal disease: Code(s): N18.6 - End stage renal disease Status: Chronic Assessment and Plan: HD tomorrow and continue M/WF schedule follow electrolytes, volume status, and clearance (2) UTI (urinary tract infection): Code(s): N39.0 - Urinary tract infection, site not specified Status: Acute Assessment and Plan: urine culture with Enterococcus on antibiotics (3) Copious oral secretions: Code(s): R68.89 - Other general symptoms and signs Status: Acute Assessment and Plan: leading to issues with vomiting? possible resulting in aspiration pneumonia speech therapy following on antibiotics (4) Weakness generalized: Code(s): R53.1 - Weakness Status: Acute Assessment and Plan: due to UTI versus aspiration pneumonia versus other or combination of all continue current therapy Will continue to follow. History of Present Illness Reason for Consult Consult date: 06/05/21 Reason for consult: end stage renal disease Chief Complaint Chief complaint: weakness,vomiting,upper respiratory infection History of Present Illness Narrative: The patient is a 71 year old male with a past medical history as outlined below who presented to [facility] ER with generalized weakness. According to the as well as my discussion with the ER physician, the patient has been gradually getting weaker and weaker over the last 4-5 days if not longer. This is been further complicated by fact that she has upper airway congestion that seems to be somewhat difficult for him to clear and the ER physician was concerned that there may be a possibility of aspiration playing a role with regard to his weakness. That being said, there has been no documentation of any type of aspiration according to the or any other physicians involved in his care. He has been having some issues and problems with vomiting thought to be due to his inability to clear his congestion/secretions. Workup and evaluation emergency room demonstrated the patient to be hemodynamically stable and in no apparent distress although it was reported that he had audible congestion by exam. routine blood test demonstrated labs consistent with his known history of end-stage renal disease although his CBC did show a mildly elevated white blood cell count and his chronic anemia. His urinalysis was somewhat suggestive of urinary tract infection and as already mentioned, there was some concern with regard to aspiration given his inability to clear his upper airway secretions. However, his chest x-ray did not demonstrate any type of infiltrate to confirm this. He did have a CT scan of his abdomen pelvis with did she demonstrate small pleural effusions but these were chronic findings. Appropriate cultures were obtained and he was started on antibiotic therapy for both his urinary tract infection and concern for possible aspiration pneumonia with subsequent admission to the hospital for ongoing management. Since his admission, he received dialysis yesterday to maintain his Wednesday schedule and tolerated this intervention without any issues or problems. He otherwise does not appear in any acute distress since his admission other than the aforementioned weakness/fatigue. Renal consultation was requested due to his end-stage renal disease. The patient normally dialyzes on a Wednesday, Wednesday, Wednesday dialysis schedule under the care of Dr. Michael Downing at [facility]. He did receive his dialysis on Wednesday (06/02/21) prior to his hospital admission and as mentioned above, received dialysis yesterday to maintain his normal outpatient dialysis schedule. From what I can tell, he tolerated both procedures / interventions without any issues or problems. He was noted to have a significantly elevated potassium level yesterday which was giorgio
--- NOTE | 2021-06-05 09:33 | PCOTNOTE ---
Attempted to see, Pt. on bedrest orders. Per nurse, hold on pt. until seen by doctor today. Will follow up with nurse.
[2021-06-05 09:45] LABS: Alanine Aminotransferase > 3750 U/L (4-50); Aspartate Amino Transferase 4694 U/L (17-59)
--- NOTE | 2021-06-05 09:57 | PM.IMPN ---
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 He did need much dinner and then began vomiting multiple times. The patient's felt like he was becoming more weak and not feeling well so she brought him to the emergency room for further evaluation. Initial vitals showed blood pressure 176/61, heart rate 72, respiratory rate increased at 26, afebrile, oxygen saturation 95% on room air. Initial labs show leukocytosis to 15,700 with elevated neutrophils, normocytic anemia with a hemoglobin of 10, hematocrit 34, hyponatremia at 134, elevated creatinine of 4.3, BUN 29, glucose 203, normal LFTs. TSH normal. Urinalysis concerning for urinary tract infection and started on IV Zosyn. He was admitted to the hospital which were lysed weakness, IV fluid hydration and antibiotics for possible UTI. Urine culture came back growing Enterococcus species with sensitivities pending. IV antibiotics were broadened to IV vancomycin for Enterococcus coverage. Blood cultures at this time are negative to date. Altered mental status could be secondary to untreated UTI. Hopefully will improve over next 24-48 hours. He is on telemetry at this time showing paced rhythm at 70 beats per minute with few PVCs noted. No acute arrhythmia noted. Continue monitoring (2) Seizure: Code(s): R56.9 - Unspecified convulsions Status: Acute Assessment and Plan: 06/05/21-the nurses called me about a change in the patient's mental status where he was less responsive today and concerns of increased drowsiness. Could be secondary to Enterococcus UTI and not being on appropriate antibiotics in this was changed but during my examination he was found to have focal seizures almost every minute where he would turn his head and eyes to the left and stare off in have some nystagmus. Patient has never had any type of seizure before but he did have a stroke back in December 2020 which puts him at high risk. I talked and consulted to the neurologist Dr. Christy, who recommended getting an EEG stat and IV Keppra 750 mg q.12 hours. Also given 1 mg of Ativan due to active seizures. Seizure precautions in place. Will keep NPO until the patient is more awake and alert Continue monitoring. Appreciate neurology's input. (3) LFT elevation: Code(s): R79.89 - Other specified abnormal findings of blood chemistry Status: Acute Assessment and Plan: Patient's liver functions elevated significantly 06/04/21 from 54/33 to [id number]/1909. DC the patient's IV Tylenol and Zosyn which could have caused the elevation of his liver enzymes CT on arrival showed normal appearance of his liver, pancreas and no acute abnormality for his vomiting. Switched IV antibiotics: IV Vancomycin for Enterococcus UTI, IV Rocephin #2 and Metronidazole #1 for possible aspiration pneumonia Hepatitis panel is negative. Normal total bilirubin. Lactic acid was elevated at 4.5 which could be from dehydration versus infection and improved to 3.2, but still elevated. Liver ultrasound showing Cholelithiasis and gallbladder wall thickening. Findings are equivocal for acute cholecystitis. Consider nuclear hepatobiliary scan. She Discussed with the patient about ultrasound LFT findings. Believe it is related to a drug reaction from Zosyn/Tylenol but we cannot rule out acute cholecystitis. Currently antibiotics are covering for acute coli infection. Total bili is normal so less concerned for
[2021-06-05 09:58] LABS: Reflex Lactic Acid Yes or No Add Lactic
--- NOTE | 2021-06-05 10:35 | PCSTNOTE ---
Radiology transporters brought patient to x-ray room for Modified Barium Swallow study (MBS), however patient was very sleepy, opening eyes only briefly. It was determined by therapist that this patient would not be safe to have oral presentations at this time and affirmed by radiology staff. Therapist notified nurse, Beverly, to contact [employer] should patient be more awake and alert at some point today so that MBS may be attempted. Therapist also contacted hospitalist, Yaneli, to inform her of decision and that we will attempt as soon as patient is able.
--- NOTE | 2021-06-05 10:52 | PCPTNOTE ---
Attempted PT eval. Hold per RN as pt has bedrest orders, awaiting Dr to see.. Will follow.
[2021-06-05] MEDS: LORazepam INJ (*CRX) 2 MG/ML VIAL 1 MG IV PUSH (11:31)
[2021-06-05] MEDS: levETIRAcetam IV 750 MG in DEXTROSE 5% 100 ML 430 MG IVPB ×2 (11:38→22:02)
[2021-06-05 11:40] LABS: Glucose Point of Care 231 mg/dl (65-105)
[2021-06-05] MEDS: metroNIDAZOLE 500 MG/ISO 100ML 500 MG/100 ML BAG 100 MG IVPB ×3 (12:06→23:40)
[2021-06-05 12:08] LABS: Lactic Acid 2.8 mmol/L (0.7-2.1)
--- NOTE | 2021-06-05 13:49 | PCOTNOTE ---
Attempted to see for occupational therapy. Nurse reports changes in pt medical status, not appropriate for therapy at this time, will follow up with about need for therapy orders.
[2021-06-05] MEDS: SODIUM CHLORIDE 0.9% IV 1,000 ML 60 ML IV CONT (14:27)
[2021-06-05 14:53] LABS: Albumin Level 3.6 g/dL (3.5-5.1); Alkaline Phosphatase 229 U/L (38-126); Anion Gap 19 mmol/L (8-16); Bilirubin,Total 0.8 mg/dL (0.2-1.3); Blood Urea Nitrogen 59 mg/dL (9-20); Calcium 8.5 mg/dL (8.4-10.2); Carbon Dioxide 24 mmol/L (22-30); Chloride 92 mmol/L (98-107); Estimated CRCL calculation 10 ml/min; Estimated Glomerular Filt Rate 8; Glucose 231 mg/dL (65-110); Potassium 4.9 mmol/L (3.4-5.0); Sodium 135 mmol/L (137-145)
[2021-06-05 15:22] LABS: Alanine Aminotransferase > 3750 U/L (4-50); Aspartate Amino Transferase 3327 U/L (17-59)
--- NOTE | 2021-06-05 16:12 | PC.NURSE ---
Jazmine Blakely notified of abd us results and pt to lethargic to do mbs or work will therapy. [place] ann received.
[2021-06-05 17:00] LABS: Glucose Point of Care 213 mg/dl (65-105)
[2021-06-05 22:19] LABS: Glucose Point of Care 178 mg/dl (65-105)
[2021-06-06] VITALS (19 sets, daily range): BP systolic 113–156; BP diastolic 44–79; PULSE 69–72; RESP 12–20; TEMP 35.5–37; O2SAT 97–100
[2021-06-06] MEDS: metroNIDAZOLE 500 MG/ISO 100ML 500 MG/100 ML BAG 100 MG IVPB ×3 (05:25→18:07)
[2021-06-06 05:41] LABS: Glucose Point of Care 157 mg/dl (65-105)
[2021-06-06 06:12] LABS: Hematocrit 31.5 % (42.0-52.0); Hemoglobin 9.8 g/dL (14.0-18.0); Mean Corpuscular HGB Conc 31.1 g/dl (32-36); Mean Corpuscular Volume 86.8 fl (80-100); Mean Platelet Volume 11.7 fl (7.4-10.4); Platelet Count Result 203 k/mm3 (150-375); Red Blood Count 3.63 M/mm3 (4.6-6.20); Red Cell Distribution Width 15.7 % (11.5-14.5); White Blood Count 17.5 K/mm3 (4.5-10.0)
[2021-06-06 06:27] LABS: Lactic Acid Reflex 0.9 mmol/L (0.7-2.1)
[2021-06-06 07:57] LABS: Albumin Level 3.1 g/dL (3.5-5.1); Alkaline Phosphatase 211 U/L (38-126); Anion Gap 14 mmol/L (8-16); Bilirubin,Total 0.9 mg/dL (0.2-1.3); Blood Urea Nitrogen 74 mg/dL (9-20); CRP 6.7 mg/dL (<1.0); Calcium 7.7 mg/dL (8.4-10.2); Carbon Dioxide 20 mmol/L (22-30); Chloride 100 mmol/L (98-107); Estimated CRCL calculation 9 ml/min; Estimated Glomerular Filt Rate 7; Glucose 156 mg/dL (65-110); Phosphorus 6.9 mg/dL (2.5-4.5); Potassium 4.7 mmol/L (3.4-5.0); Sodium 134 mmol/L (137-145)
[2021-06-06 08:13] LABS: Aspartate Amino Transferase 1090 U/L (17-59)
[2021-06-06 08:28] LABS: Alanine Aminotransferase 2933 U/L (4-50)
[2021-06-06] MEDS: SODIUM CHLORIDE 0.9% IV 1,000 ML 60 ML IV CONT (08:43)
--- NOTE | 2021-06-06 09:43 | PCSTNOTE ---
Please refer to the Modified Barium Swallow Evaluation in the EMR.
[2021-06-06 09:51] LABS: Glucose Point of Care 169 mg/dl (65-105)
[2021-06-06] MEDS: EPOETIN ALFA-EPBX 10,000 UNITS/ML VIAL 5000 UNITS IV PUSH (10:30)
--- NOTE | 2021-06-06 11:12 | P.NEURO_ITS ---
Neurology EEG Report TEST eeg DIAGNOSIS sedated CONDITION OF RECORDING sedated EEG NUMBER [id number] CLINICAL HISTORY sedated EEG DESCRIPTION Basic resting occipital frequency consists of small amount of poorly organized low voltage 8 to 9 hertz per 2nd alpha activity admixed with low-voltage 15 to 21 hertz per 2nd beta activity. Low to medium voltage 5 to 7 hertz per 2nd asymmetrical theta activity seen over the right hemispheric linkages. Low- voltage beta activity seen over the right hemispheric linkages intermittently. Osmle stimulation not done. Hyperventilation not done. Non paroxysmal. Focal. Lateralizing. IMPRESSION Abnormal record due to the presence of asymmetrical theta activity and also low-voltage beta activity or the over the right hemisphere although there is no evidence of paroxysmal discharge at this particular time. Clinical correlation recommended. These abnormalities are suggestive of focal structural lesion but the paroxysmal discharge not there clinical correlation recommended
[2021-06-06] MEDS: INSULIN GLARGINE (*BKC) 100 UNITS/ML 20 UNITS SUB-Q (11:38)
--- NOTE | 2021-06-06 11:43 | WPDNEURCNPN ---
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 with the chronic renal disease dialysis dependent question was raised regarding the possibility of the nystagmus and considering the possibility of the focal structural lesion leading to the cysts focal seizure he does have very end point nystagmus, EEG did not show any paroxysmal focal spikes he is already receiving Keppra 750 mg twice a day, continue the medication dosage as such and will follow along with thank Consult date: 06/06/21 Time Seen: 11:00 HPI: Garrett Benson is a 71 year old male has been admitted to the hospital with a history of end-stage renal disease for which patient is on dialysis Wednesday and Fridays. Reportedly patient had the dialysis day before. patient reportedly has become increasingly weak over the last 5 days with history of vomiting for the last 24 hours and wheezing to the upper airway in the past his swallowing studies was normal but patient was noted be nonverbal and his right side was flaccid from the stroke in December of this year patient is fully vaccinated for COVID-19 his electrolytes were normal except creatinine was 4.3 at the day of admission was started on Zosyn for UTI the possibility of aspiration neuro consultation was obtained because of the possibility of the seizure focal in nature CT scan of the head documented old infarct in the brain which has worsened from December 26, 2017 involving chronic encephalomalacia left frontal parietal temporal and occipital lobes as well as left insula and left basal ganglia and left thalamus all within the distribution of the left middle cerebral artery there was another infarct in the right cerebellum and in the right frontal and parietal lobes and also in the right lentiform nucleus but there was no evidence of bleed, routine labs were compatible with leukocytosis that is WBC 17.5 hemoglobin 9.8 and the platelet count of 203 BUN 74 with creatinine of 7.40 estimated GFR only 7 Review of Systems Review of Systems: All systems reviewed & are unremarkable except as noted in HPI and below [facility] Past Medical History Medical History A-fib Adult BMI 26.0-26.9 kg/sq m Anemia Anemia, unspecified Benign prostatic hyperplasia without lower urinary tract symptoms BPH (benign prostatic hyperplasia) CAD (coronary artery disease) CHF (congestive heart failure) CKD (chronic kidney disease) Collar bone fracture COPD (chronic obstructive pulmonary disease) Coronary artery disease involving [place] artery of transplanted heart CVA (cerebral vascular accident) Depression Dialysis patient DM (diabetes mellitus) DVT (deep venous thrombosis) Fistula, right hand Removed due to steal syndrome GERD (gastroesophageal reflux disease) H/O: HTN (hypertension) Hearing loss History of kidney stones History of pneumonia Hx of hiatal hernia Hx of transient ischemic attack (TIA) Hypercholesteremia Hyperlipidemia Hypertension Hypothyroidism MDD (major depressive disorder) MRSA (methicillin resistant Staphylococcus aureus) Peripheral vascular disease PVD (peripheral vascular disease) Scarring of lung Seroma Thyroid nodule Surgical History Surgical History History of angioplasty History of carotid endarterectomy History of local excision of skin lesion History of repair of hiatal hernia History of vascular surgery Hx of cardiac cath Hx of heart artery stent Family History Family History Mother Family history of malignant neoplasm Family history of lung cancer, Onset Age: 65 Patient's mother is Tobacco abuse Sibling Family history of diabetes mellitus in first degree relative, Onset Age: 52 Family history of malignant neoplasm of kidney Patient's sister is Patient's brother is Father
[2021-06-06 12:34] LABS: Glucose Point of Care 128 mg/dl (65-105)
[2021-06-06] MEDS: HEPARIN SODIUM 1,000 UNITS/ML VIAL 4000 UNITS (12:45)
--- NOTE | 2021-06-06 13:30 | PC.NURSE ---
Per Pharmacy, oumou to crush Sevelamer Carbonate to administer.
--- NOTE | 2021-06-06 13:48 | PM.PNNEP ---
Progress Note: A&P Assessment and Plan (1) End stage renal disease: Code(s): N18.6 - End stage renal disease Status: Chronic Assessment and Plan: HD today and continue M/WF schedule follow electrolytes, volume status, and clearance (2) UTI (urinary tract infection): Code(s): N39.0 - Urinary tract infection, site not specified Status: Acute Assessment and Plan: urine culture with Enterococcus on antibiotics (3) Seizure: Code(s): R56.9 - Unspecified convulsions Status: Acute Assessment and Plan: no previous history Neurology following started on IV keppra playing a role with weakness? (4) Copious oral secretions: Code(s): R68.89 - Other general symptoms and signs Status: Acute Assessment and Plan: leading to issues with vomiting? possible resulting in aspiration pneumonia? speech therapy recommendations noted on antibiotics (5) Weakness generalized: Code(s): R53.1 - Weakness Status: Acute Assessment and Plan: due to UTI versus aspiration pneumonia versus other or combination of all continue current therapy Will continue to follow. Subjective Date/time seen: 06/06/21 13:48 Tolerating dialysis treatment reasonably well at the time of my visit (seen on HD at 1:30PM); possible seizure activity yesterday so Neurology consulted and started on IV Keppra; no apparent distress at this time; no issues/events overnight or earlier this AM. Exam Narrative: General: ill-appearing male in NAD Heart: IRRR, normal S1 and S2; no rub Lungs: clear anteriorly Abdomen: soft, nontender, nondistended, positive bowel sounds Extremities: no cyanosis or clubbing; no edema Skin: warm and dry Objective Data Vital Signs Vital Signs: Vital Signs Temp Pulse Resp BP Pulse Ox 06/06/21 13:45 69 156/61 H 06/06/21 13:21 36.6 C 70 14 146/79 H 100 06/06/21 13:00 69 135/71 06/06/21 12:30 69 146/79 H 06/06/21 12:15 70 141/76 H 06/06/21 12:00 71 150/70 H 06/06/21 11:30 69 128/68 06/06/21 11:00 69 116/59 L 06/06/21 10:30 70 130/55 L 06/06/21 10:00 70 146/72 H 06/06/21 09:45 36.7 C 71 20 146/72 H 06/06/21 08:23 36.4 C 70 12 125/63 100 06/06/21 08:00 70 06/06/21 04:00 35.5 C L 69 16 128/54 L 97 06/06/21 00:00 35.6 C L 70 18 147/60 H 100 06/05/21 20:00 36.4 C 69 16 153/54 H 98 06/05/21 16:00 70 Intake/Output Intake/Output: Intake & Output 06/03/21 06/04/21 06/05/21 06/06/21 23:59 23:59 23:59 23:59 Intake Total 1525 1230 1060.0 1250 Output Total 1999 1999 Balance 1525 -770 1060.0 -750 Meds/Results Medications: Active Medications Generic Name Dose Route Start Last Admin Trade Name Freq PRN Reason Stop Dose Admin Albuterol 2.5 mg 06/03/21 21:53 Albuterol Sulfate Neb 2.5 Mg/0.5 Ml Inh INHALATION Q4HRT PRN Shortness Of Breath Apixaban 2.5 mg 06/03/21 22:00 06/06/21 11:37 Apixaban 2.5 Mg Tablet PO Not Given BID SPIKE Atropine Sulfate 1 drop 06/03/21 20:27 Atropine Sulfate 1% Ophth Soln 5 Ml Bottle SUBLINGUAL Q4H PRN Secretions Clopidogrel Bisulfate 75 mg 06/03/21 22:00 06/05/21 23:21 Clopidogrel Bisulfate 75 Mg Tablet PO Not Given HS SPIKE Cyanocobalamin 250 mcg 06/04/21 09:00 06/06/21 10:06 Cyanocobalamin 250 Mcg Tablet PO Not Given DAILY SPIKE Dextrose 12.5 gm 06/03/21 21:55 Dextrose 50% 25 Gm/50 Ml Syringe IV PUSH PRN PRN Hypoglycemia Protocol Diphenhydramine HCl 25 mg 06/03/21 22:10 06/05/21 21:39 Diphenhydramine Hcl Cap 25 Mg Capsule PO 07/04/21 22:11 Not Given HS SPIKE Epoetin Matt-epbx 5,000 units 06/06/21 19:00 06/06/21 10:30 Epoetin Matt-Epbx 10,000 Units/Ml Vial IV PUSH 06/06/21 19:01 5,000 units ONCE ONE Administration Ergocalciferol 50,000 unit 06/04/21 09:00 06/04/21 09:26
--- NOTE | 2021-06-06 13:51 | PCPTNOTE ---
PT eval on hold per MD orders.
[2021-06-06] MEDS: levETIRAcetam IV 750 MG in DEXTROSE 5% 100 ML 430 MG IVPB ×2 (14:06→22:13)
[2021-06-06] MEDS: SEVELAMER CARBONATE 800 MG TABLET PO ×2 (14:07→18:06)
[2021-06-06] MEDS: METOPROLOL TARTRATE 25 MG TABLET PO ×2 (14:10→21:47)
[2021-06-06] MEDS: PANTOPRAZOLE SODIUM IV 40 MG VIAL IV PUSH ×2 (14:11→21:59)
--- NOTE | 2021-06-06 15:12 | PM.IMPN ---
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 He did need much dinner and then began vomiting multiple times. The patient's felt like he was becoming more weak and not feeling well so she brought him to the emergency room for further evaluation. Initial vitals showed blood pressure 176/61, heart rate 72, respiratory rate increased at 26, afebrile, oxygen saturation 95% on room air. Initial labs show leukocytosis to 15,700 with elevated neutrophils, normocytic anemia with a hemoglobin of 10, hematocrit 34, hyponatremia at 134, elevated creatinine of 4.3, BUN 29, glucose 203, normal LFTs. TSH normal. Urinalysis concerning for urinary tract infection and started on IV Zosyn. He was admitted to the hospital which were lysed weakness, IV fluid hydration and antibiotics for possible UTI. Urine culture came back growing Enterococcus species with sensitivities pending. IV antibiotics were broadened to IV vancomycin for Enterococcus coverage. Blood cultures at this time are negative to date. He is on telemetry at this time showing paced rhythm at 70 beats per minute with few PVCs noted. No acute arrhythmia noted. Continue monitoring 06/06/21: Talked to the patient's in length about his current status. The patient's code status was switched to a do not resuscitate by the patient's yesterday. I talked to her about hospice. She is going to continue thinking about this and get back to us with her thoughts. In the meantime will continue with her current treatment (2) Seizure: Code(s): R56.9 - Unspecified convulsions Status: Acute Assessment and Plan: 06/05/21-the nurses called me about a change in the patient's mental status where he was less responsive today and concerns of increased drowsiness. Could be secondary to Enterococcus UTI and not being on appropriate antibiotics in this was changed but during my examination he was found to have focal seizures almost every minute where he would turn his head and eyes to the left and stare off in have some nystagmus. Patient has never had any type of seizure before but he did have a stroke back in December 2020 which puts him at high risk. I talked and consulted to the neurologist Dr. Christy, who reviewed the EEG and showed focal structural lesion but the paroxysmal discharge not there. Dr. Christy recommended continuing IV Keppra 750 mg q.12 hours at this time due to renal function/dialysis Seizure precautions in place. Continue monitoring. Appreciate neurology's input. (3) LFT elevation: Code(s): R79.89 - Other specified abnormal findings of blood chemistry Status: Acute Assessment and Plan: Patient's liver functions elevated significantly 06/04/21 from 54/33 to 2942/1909. DC the patient's IV Tylenol and Zosyn which could have caused the elevation of his liver enzymes CT on arrival showed normal appearance of his liver, pancreas and no acute abnormality for his vomiting. Switched IV antibiotics: IV Vancomycin for Enterococcus UTI, IV Rocephin #2 and Metronidazole #1 for possible aspiration pneumonia Hepatitis panel is negative. Normal total bilirubin. Lactic acid was elevated at 4.5 which could be from dehydration versus infection and improved to 3.2, but still elevated. Liver ultrasound showing Cholelithiasis and gallbladder wall thickening. Findings are equivocal for acute cholecystitis. Consid
[2021-06-06 17:46] LABS: Glucose Point of Care 139 mg/dl (65-105)
[2021-06-06] MEDS: APIXABAN 2.5 MG TABLET PO (18:05)
[2021-06-06 19:26] LABS: Vancomycin Random 8.1 ug/mL (10-20)
[2021-06-06] MEDS: diphenhydrAMINE HCl CAP 25 MG CAPSULE PO (21:47)
[2021-06-06] MEDS: CLOPIDOGREL BISULFATE 75 MG TABLET PO (21:47)
[2021-06-06] MEDS: GABAPENTIN 300 MG CAPSULE PO (21:47)
[2021-06-07] VITALS (11 sets, daily range): BP systolic 118–145; BP diastolic 59–90; PULSE 68–96; RESP 12–20; TEMP 36.1–36.8; O2SAT 94–100
[2021-06-07 00:04] LABS: Glucose Point of Care 227 mg/dl (65-105)
[2021-06-07] MEDS: metroNIDAZOLE 500 MG/ISO 100ML 500 MG/100 ML BAG 100 MG IVPB ×5 (00:45→23:01)
[2021-06-07] MEDS: SCOPOLAMINE 1.5 MG PATCH TRANSDERM (08:04)
[2021-06-07] MEDS: SEVELAMER CARBONATE 800 MG TABLET PO ×3 (08:06→17:49)
[2021-06-07] MEDS: METOPROLOL TARTRATE 25 MG TABLET PO ×2 (08:06→21:05)
[2021-06-07] MEDS: PANTOPRAZOLE SODIUM IV 40 MG VIAL IV PUSH ×2 (08:07→21:04)
[2021-06-07] MEDS: APIXABAN 2.5 MG TABLET PO ×2 (08:07→17:49)
[2021-06-07 08:15] LABS: Glucose Point of Care 174 mg/dl (65-105)
[2021-06-07] MEDS: INSULIN GLARGINE (*BKC) 100 UNITS/ML 20 UNITS SUB-Q (08:20)
[2021-06-07] MEDS: levETIRAcetam IV 750 MG in DEXTROSE 5% 100 ML 430 MG IVPB ×2 (09:21→21:04)
[2021-06-07 09:51] LABS: Hematocrit 32.3 % (42.0-52.0); Hemoglobin 9.6 g/dL (14.0-18.0); Mean Corpuscular HGB Conc 29.7 g/dl (32-36); Mean Corpuscular Hemoglobin 26.4 pg (26-34); Platelet Count Result 184 k/mm3 (150-375); Red Blood Count 3.63 M/mm3 (4.6-6.20); Red Cell Distribution Width 15.7 % (11.5-14.5); White Blood Count 13.9 K/mm3 (4.5-10.0)
[2021-06-07 10:16] LABS: Albumin Level 2.9 g/dL (3.5-5.1); Alkaline Phosphatase 192 U/L (38-126); Anion Gap 10 mmol/L (8-16); Aspartate Amino Transferase 502 U/L (17-59); Bilirubin,Total 0.8 mg/dL (0.2-1.3); Blood Urea Nitrogen 47 mg/dL (9-20); CRP 5.7 mg/dL (<1.0); Calcium 7.7 mg/dL (8.4-10.2); Carbon Dioxide 24 mmol/L (22-30); Chloride 100 mmol/L (98-107); Estimated CRCL calculation 13 ml/min; Estimated Glomerular Filt Rate 11; Glucose 213 mg/dL (65-110); Phosphorus 4.3 mg/dL (2.5-4.5); Potassium 4.2 mmol/L (3.4-5.0); Sodium 134 mmol/L (137-145)
--- NOTE | 2021-06-07 10:40 | PM.PNNEP ---
Progress Note: A&P Assessment and Plan (1) End stage renal disease: Code(s): N18.6 - End stage renal disease Status: Chronic Assessment and Plan: HD yesterday and continue M/WF schedule follow electrolytes, volume status, and clearance (2) UTI (urinary tract infection): Code(s): N39.0 - Urinary tract infection, site not specified Status: Acute Assessment and Plan: urine culture with Enterococcus on antibiotics (3) Seizure: Code(s): R56.9 - Unspecified convulsions Status: Acute Assessment and Plan: no previous history Neurology following started on IV keppra playing a role with weakness? (4) Copious oral secretions: Code(s): R68.89 - Other general symptoms and signs Status: Acute Assessment and Plan: leading to issues with vomiting? possible resulting in aspiration pneumonia? speech therapy recommendations noted on antibiotics (5) Weakness generalized: Code(s): R53.1 - Weakness Status: Acute Assessment and Plan: due to UTI versus aspiration pneumonia versus other or combination of all continue current therapy Will continue to follow. Subjective Date/time seen: 06/07/21 10:40 No apparent distress noted -- difficult to fully assess given his expressive aphasia and the fact he quickly nods off when I stop asking questions; tolerated dialysis yesterday without any issues or problems; however, he does seem more awake/alert than when I saw him yesterday. Exam Narrative: General: ill-appearing male in NAD Heart: IRRR, normal S1 and S2; no rub Lungs: clear anteriorly Abdomen: soft, nontender, nondistended, positive bowel sounds Extremities: no cyanosis or clubbing; no edema Skin: warm and intact Objective Data Vital Signs Vital Signs: Vital Signs Temp Pulse Resp BP Pulse Ox 06/07/21 08:06 70 06/07/21 08:03 36.4 C 69 12 121/64 96 06/07/21 04:00 36.1 C L 72 20 118/69 100 06/07/21 00:00 36.6 C 70 20 127/72 95 06/06/21 20:00 36.4 C L 70 20 133/44 L 98 06/06/21 16:00 36.5 C 69 12 113/62 98 06/06/21 14:10 70 06/06/21 13:49 36.4 C 69 18 151/67 H 06/06/21 13:45 69 156/61 H 06/06/21 13:21 36.6 C 70 14 146/79 H 100 06/06/21 13:00 69 135/71 06/06/21 12:30 69 146/79 H 06/06/21 12:15 70 141/76 H 06/06/21 12:00 71 150/70 H Intake/Output Intake/Output: Intake & Output 06/04/21 06/05/21 06/06/21 06/07/21 23:59 23:59 23:59 23:59 Intake Total 1230 1060.0 2025.0 320 Output Total 1999 1999 Balance -770 1060.0 25.0 320 Meds/Results Medications: Active Medications Generic Name Dose Route Start Last Admin Trade Name Freq PRN Reason Stop Dose Admin Albuterol 2.5 mg 06/03/21 21:53 Albuterol Sulfate Neb 2.5 Mg/0.5 Ml Inh INHALATION Q4HRT PRN Shortness Of Breath Apixaban 2.5 mg 06/03/21 22:00 06/07/21 08:07 Apixaban 2.5 Mg Tablet PO 2.5 mg BID SPIKE Administration Atropine Sulfate 1 drop 06/03/21 20:27 Atropine Sulfate 1% Ophth Soln 5 Ml Bottle SUBLINGUAL Q4H PRN Secretions Clopidogrel Bisulfate 75 mg 06/03/21 22:00 06/06/21 21:47 Clopidogrel Bisulfate 75 Mg Tablet PO 75 mg HS SPIKE Administration Cyanocobalamin 250 mcg 06/04/21 09:00 06/06/21 10:06 Cyanocobalamin 250 Mcg Tablet PO Not Given DAILY SPIKE Dextrose 12.5 gm 06/03/21 21:55 Dextrose 50% 25 Gm/50 Ml Syringe IV PUSH PRN PRN Hypoglycemia Protocol Diphenhydramine HCl 25 mg 06/03/21 22:10 06/06/21 21:47 Diphenhydramine Hcl Cap 25 Mg Capsule PO 07/04/21 22:11 25 mg HS SPIKE Administration Ergocalciferol 50,000 unit 06/04/21 09:00 06/04/21 09:26 Ergocalciferol 50,000 Unit Capsule PO 50,000 unit MONTHLY SPIKE Administration Fluoxetine HCl 40 mg 06/04/21 09:00 Fluoxetine Hcl 20 Mg Capsule PO DAILY SPIKE Folic Acid 1 mg 06/04/21
--- NOTE | 2021-06-07 11:20 | PM.IMPN ---
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 He did need much dinner and then began vomiting multiple times. The patient's felt like he was becoming more weak and not feeling well so she brought him to the emergency room for further evaluation. Initial vitals showed blood pressure 176/61, heart rate 72, respiratory rate increased at 26, afebrile, oxygen saturation 95% on room air. Initial labs show leukocytosis to 15,700 with elevated neutrophils, normocytic anemia with a hemoglobin of 10, hematocrit 34, hyponatremia at 134, elevated creatinine of 4.3, BUN 29, glucose 203, normal LFTs. TSH normal. Urinalysis concerning for urinary tract infection and started on IV Zosyn. He was admitted to the hospital which were lysed weakness, IV fluid hydration and antibiotics for possible UTI. Urine culture came back growing Enterococcus species with sensitivities pending. IV antibiotics were broadened to IV vancomycin for Enterococcus coverage. Blood cultures at this time are negative to date. tele shows Paced rhythm at 70 bpm few runs of nonsustained Vtach for 10 beats. Unsure if the patient was symptomatic since he has expressive aphasia. Electrolytes otherwise stable. Continue monitoring 06/07/21: Patient does have some improvement in his current status will order PT/OT and Speech reevaluation at this time. (2) Seizure: Code(s): R56.9 - Unspecified convulsions Status: Acute Assessment and Plan: 06/05/21-the nurses called me about a change in the patient's mental status where he was less responsive today and concerns of increased drowsiness. Could be secondary to Enterococcus UTI and not being on appropriate antibiotics in this was changed but during my examination he was found to have focal seizures almost every minute where he would turn his head and eyes to the left and stare off in have some nystagmus. Patient has never had any type of seizure before but he did have a stroke back in December 2020 which puts him at high risk. I talked and consulted to the neurologist Dr. Christy, who reviewed the EEG and showed focal structural lesion but the paroxysmal discharge not there. Dr. Christy recommended continuing IV Keppra 750 mg q.12 hours at this time due to renal function/dialysis Seizure precautions in place. Continue monitoring. Appreciate neurology's input. (3) LFT elevation: Code(s): R79.89 - Other specified abnormal findings of blood chemistry Status: Acute Assessment and Plan: Patient's liver functions elevated significantly 06/04/21 from 54/33 to 2942/1909. DC the patient's IV Tylenol and Zosyn which could have caused the elevation of his liver enzymes CT on arrival showed normal appearance of his liver, pancreas and no acute abnormality for his vomiting. Switched IV antibiotics: IV Vancomycin for Enterococcus UTI, IV Rocephin #4 and Metronidazole #3 for possible aspiration pneumonia Hepatitis panel is negative. Normal total bilirubin. Lactic acid was elevated at 4.5 which could be from dehydration versus infection and improved to 3.2, but still elevated. Liver ultrasound showing Cholelithiasis and gallbladder wall thickening. Findings are equivocal for acute cholecystitis. Consider nuclear hepatobiliary scan. *06/05/21*Discussed with the patient about ultrasound LFT findings. Believe it is related to a drug reaction from Zosyn/Tylenol bu
[2021-06-07 11:55] LABS: Glucose Point of Care 208 mg/dl (65-105)
[2021-06-07] MEDS: INSULIN ASPART (*BKC) 100 UNITS/ML SUB-Q (12:31)
[2021-06-07] MEDS: SODIUM CHLORIDE 0.9% IV 1,000 ML 60 ML IV CONT (12:36)
--- NOTE | 2021-06-07 12:36 | PCSTNOTE ---
Bedside swallow evaluation completed. Please see ST Inpatient Evaluation for details and recommendations.
[2021-06-07 16:52] LABS: Glucose Point of Care 176 mg/dl (65-105)
[2021-06-07 17:49] LABS: Alanine Aminotransferase 1786 U/L (4-50)
[2021-06-07] MEDS: CLOPIDOGREL BISULFATE 75 MG TABLET PO (21:04)
[2021-06-07] MEDS: GABAPENTIN 300 MG CAPSULE PO (21:04)
[2021-06-07 21:35] LABS: Glucose Point of Care 175 mg/dl (65-105)
[2021-06-08] VITALS (12 sets, daily range): BP systolic 142–155; BP diastolic 53–72; PULSE 65–71; RESP 12–18; TEMP 35.9–36.6; O2SAT 94–99; BMI 10.0
[2021-06-08] MEDS: metroNIDAZOLE 500 MG/ISO 100ML 500 MG/100 ML BAG 100 MG IVPB ×3 (05:35→18:02)
[2021-06-08] MEDS: SODIUM CHLORIDE 0.9% IV 1,000 ML 60 ML IV CONT ×2 (05:35→22:08)
[2021-06-08 06:13] LABS: Basophils Percent Auto 0.1 % (0.2-1.2); Eosinophils Absolute Auto 0.2 K/mm3 (0-0.3); Eosinophils Percent Auto 1.8 % (0-4.4); Hematocrit 30.6 % (42.0-52.0); Hemoglobin 9.4 g/dL (14.0-18.0); Immature Granulocyte Absolute 0.07 K/mm3 (0.00-0.031); Immature Granulocyte Percent A 0.6 % (0-0.5); Lymphocytes Absolute Auto 0.86 K/mm3 (0.9-3.2); Lymphocytes Percent Auto 7.5 % (18.3-44.2); Mean Corpuscular HGB Conc 30.7 g/dl (32-36); Mean Corpuscular Hemoglobin 26.9 pg (26-34); Mean Corpuscular Volume 87.4 fl (80-100); Mean Platelet Volume 12.1 fl (7.4-10.4); Monocytes Absolute Auto 0.7 K/mm3 (0.1-0.6); Monocytes Percent Auto 6.2 % (2.6-8.5); Neutrophils Absolute Auto 9.6 K/mm3 (1.3-6.7); Neutrophils Percent Auto 83.8 % (45.5-73.1); Nucleated Red Blood Cells Absolute Auto 0.1 K/mm3 (0.0-0.012); Nucleated Red Blood Cells Perc 0.6 % (0.0-0.2); Platelet Count Result 167 k/mm3 (150-375); Red Cell Distribution Width 15.8 % (11.5-14.5); White Blood Count 11.4 K/mm3 (4.5-10.0)
[2021-06-08 06:24] LABS: Albumin Level 2.7 g/dL (3.5-5.1); Alkaline Phosphatase 162 U/L (38-126); Anion Gap 8 mmol/L (8-16); Aspartate Amino Transferase 297 U/L (17-59); Bilirubin,Total 0.6 mg/dL (0.2-1.3); Blood Urea Nitrogen 58 mg/dL (9-20); Calcium 7.7 mg/dL (8.4-10.2); Carbon Dioxide 23 mmol/L (22-30); Chloride 104 mmol/L (98-107); Estimated CRCL calculation 11 ml/min; Estimated Glomerular Filt Rate 9; Glucose 124 mg/dL (65-110); Magnesium 1.9 mg/dL (1.6-2.3); Potassium 3.8 mmol/L (3.4-5.0); Sodium 135 mmol/L (137-145)
[2021-06-08 06:38] LABS: Vancomycin Random 17.4 ug/mL (10-20)
[2021-06-08 06:44] LABS: Alanine Aminotransferase 1214 U/L (4-50)
[2021-06-08 08:05] LABS: Glucose Point of Care 105 mg/dl (65-105)
[2021-06-08] MEDS: PANTOPRAZOLE SODIUM IV 40 MG VIAL IV PUSH ×2 (08:12→22:04)
[2021-06-08] MEDS: SEVELAMER CARBONATE 800 MG TABLET PO ×3 (08:12→18:02)
[2021-06-08] MEDS: APIXABAN 2.5 MG TABLET PO ×2 (08:12→18:02)
[2021-06-08] MEDS: METOPROLOL TARTRATE 25 MG TABLET PO ×2 (08:13→22:04)
[2021-06-08] MEDS: levETIRAcetam IV 750 MG in DEXTROSE 5% 100 ML 430 MG IVPB ×2 (08:14→22:06)
--- NOTE | 2021-06-08 08:19 | PM.IMPN ---
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 He did need much dinner and then began vomiting multiple times. The patient's felt like he was becoming more weak and not feeling well so she brought him to the emergency room for further evaluation. Initial vitals showed blood pressure 176/61, heart rate 72, respiratory rate increased at 26, afebrile, oxygen saturation 95% on room air. Initial labs show leukocytosis to 15,700 with elevated neutrophils, normocytic anemia with a hemoglobin of 10, hematocrit 34, hyponatremia at 134, elevated creatinine of 4.3, BUN 29, glucose 203, normal LFTs. TSH normal. Urinalysis concerning for urinary tract infection and started on IV Zosyn. He was admitted to the hospital which were lysed weakness, IV fluid hydration and antibiotics for possible UTI. Urine culture came back growing Enterococcus species with sensitivities pending. IV antibiotics were broadened to IV vancomycin for Enterococcus coverage. Blood cultures at this time are negative to date. Continue monitoring 06/08/21: Patient still appears weak/fatigued. Will see how he does with PT/OT and talk more with his when she arrives. (2) Seizure: Code(s): R56.9 - Unspecified convulsions Status: Acute Assessment and Plan: 06/05/21-the nurses called me about a change in the patient's mental status where he was less responsive today and concerns of increased drowsiness. Could be secondary to Enterococcus UTI and not being on appropriate antibiotics in this was changed but during my examination he was found to have focal seizures almost every minute where he would turn his head and eyes to the left and stare off in have some nystagmus. Patient has never had any type of seizure before but he did have a stroke back in December 2020 which puts him at high risk. I talked and consulted to the neurologist Dr. Christy, who reviewed the EEG and showed focal structural lesion but the paroxysmal discharge not there. Dr. Christy recommended continuing IV Keppra 750 mg q.12 hours at this time due to renal function/dialysis Seizure precautions in place. Continue monitoring. Appreciate neurology's input. (3) LFT elevation: Code(s): R79.89 - Other specified abnormal findings of blood chemistry Status: Acute Assessment and Plan: Patient's liver functions elevated significantly 06/04/21 from 54/33 to 2942/1909. DC the patient's IV Tylenol and Zosyn which could have caused the elevation of his liver enzymes CT on arrival showed normal appearance of his liver, pancreas and no acute abnormality for his vomiting. Switched IV antibiotics: IV Vancomycin for Enterococcus UTI, IV Rocephin #5 and Metronidazole #4 for possible aspiration pneumonia Hepatitis panel is negative. Normal total bilirubin. Lactic acid was elevated at 4.5 which could be from dehydration versus infection and improved to 3.2, but still elevated. Liver ultrasound showing Cholelithiasis and gallbladder wall thickening. Findings are equivocal for acute cholecystitis. Consider nuclear hepatobiliary scan. *06/05/21*Discussed with the patient about ultrasound LFT findings. Believe it is related to a drug reaction from Zosyn/Tylenol but we cannot rule out acute cholecystitis. Currently antibiotics are covering for acute coli infection. Total bili is normal so less concerned for choledocholithiasis. If patient
--- NOTE | 2021-06-08 12:39 | PM.PNNEP ---
Progress Note: A&P Assessment and Plan (1) End stage renal disease: Code(s): N18.6 - End stage renal disease Status: Chronic Assessment and Plan: HD tomorrow and continue M/WF schedule follow electrolytes, volume status, and clearance (2) UTI (urinary tract infection): Code(s): N39.0 - Urinary tract infection, site not specified Status: Acute Assessment and Plan: urine culture with Enterococcus on antibiotics (3) Seizure: Code(s): R56.9 - Unspecified convulsions Status: Acute Assessment and Plan: questionable presence no previous history Neurology following started on IV keppra playing a role with weakness? (4) Copious oral secretions: Code(s): R68.89 - Other general symptoms and signs Status: Acute Assessment and Plan: leading to issues with vomiting? possible resulting in aspiration pneumonia? speech therapy recommendations noted on antibiotics (5) Weakness generalized: Code(s): R53.1 - Weakness Status: Acute Assessment and Plan: due to UTI versus aspiration pneumonia versus other or combination of all PT/OT as tolerated continue current therapy Will continue to follow. Subjective Date/time seen: 06/08/21 12:39 Mentation appears to wax and wane -- he does not appear as awake/alert as when I saw him yesterday; does the same thing as yesterday though -- will nod to simple yes/no questions for a while and then quickly fall back asleep; no apparent distress noted; no events overnight or earlier this AM. Exam Narrative: General: ill-appearing male in NAD Heart: IRRR, normal S1 and S2; no rub Lungs: clear anteriorly Abdomen: soft, nontender, nondistended, positive bowel sounds Extremities: no cyanosis or clubbing; no edema Skin: no rash or nodules Objective Data Vital Signs Vital Signs: Vital Signs Temp Pulse Resp BP Pulse Ox 06/08/21 12:00 70 06/08/21 08:13 69 06/08/21 08:00 70 06/08/21 04:55 36.2 C L 69 14 148/53 H 98 06/08/21 04:00 70 06/08/21 00:38 36.4 C L 70 16 146/66 H 98 06/08/21 00:00 70 06/07/21 21:05 70 06/07/21 20:00 36.8 C 70 12 139/59 L 94 06/07/21 16:17 36.5 C 68 12 145/65 H 100 06/07/21 16:00 72 Intake/Output Intake/Output: Intake & Output 06/05/21 06/06/21 06/07/21 06/08/21 23:59 23:59 23:59 23:59 Intake Total 1060.0 2025.0 2245.0 1560 Output Total 2000 Balance 1060.0 25.0 2245.0 1560 Meds/Results Medications: Active Medications Generic Name Dose Route Start Last Admin Trade Name Freq PRN Reason Stop Dose Admin Albuterol 2.5 mg 06/03/21 21:53 Albuterol Sulfate Neb 2.5 Mg/0.5 Ml Inh INHALATION Q4HRT PRN Shortness Of Breath Apixaban 2.5 mg 06/03/21 22:00 06/08/21 08:12 Apixaban 2.5 Mg Tablet PO 2.5 mg BID SPIKE Administration Atropine Sulfate 1 drop 06/03/21 20:27 Atropine Sulfate 1% Ophth Soln 5 Ml Bottle SUBLINGUAL Q4H PRN Secretions Clopidogrel Bisulfate 75 mg 06/03/21 22:00 06/07/21 21:04 Clopidogrel Bisulfate 75 Mg Tablet PO 75 mg HS SPIKE Administration Cyanocobalamin 250 mcg 06/04/21 09:00 06/06/21 10:06 Cyanocobalamin 250 Mcg Tablet PO Not Given DAILY SPIKE Dextrose 12.5 gm 06/03/21 21:55 Dextrose 50% 25 Gm/50 Ml Syringe IV PUSH PRN PRN Hypoglycemia Protocol Diphenhydramine HCl 25 mg 06/03/21 22:10 06/08/21 01:39 Diphenhydramine Hcl Cap 25 Mg Capsule PO 07/04/21 22:11 Not Given HS SPIKE Ergocalciferol 50,000 unit 06/04/21 09:00 06/04/21 09:26 Ergocalciferol 50,000 Unit Capsule PO 50,000 unit MONTHLY SPIKE Administration Fluoxetine HCl 40 mg 06/04/21 09:00 Fluoxetine Hcl 20 Mg Capsule PO DAILY SPIKE Folic Acid 1 mg 06/04/21 09:00 06/06/21 10:07 Folic Acid 1 Mg Tablet PO Not Given QAM SPIKE Gabapentin 300 mg 06/03/21 22:00
[2021-06-08 17:20] LABS: Glucose Point of Care 228 mg/dl (65-105)
[2021-06-08] MEDS: INSULIN ASPART (*BKC) 100 UNITS/ML SUB-Q (18:02)
[2021-06-08] MEDS: CLOPIDOGREL BISULFATE 75 MG TABLET PO (22:03)
[2021-06-08] MEDS: diphenhydrAMINE HCl CAP 25 MG CAPSULE PO (22:03)
[2021-06-08] MEDS: GABAPENTIN 300 MG CAPSULE PO (22:03)
[2021-06-08 22:44] LABS: Glucose Point of Care 198 mg/dl (65-105)
[2021-06-08 22:44] LABS: Glucose Point of Care 236 mg/dl (65-105)
[2021-06-09] VITALS (9 sets, daily range): BP systolic 139–153; BP diastolic 43–71; PULSE 69–72; RESP 16–20; TEMP 35.7–36.6; O2SAT 93–100
[2021-06-09] MEDS: metroNIDAZOLE 500 MG/ISO 100ML 500 MG/100 ML BAG 100 MG IVPB ×4 (00:16→17:18)
[2021-06-09 07:27] LABS: Basophils Percent Auto 0.1 % (0.2-1.2); Eosinophils Absolute Auto 0.2 K/mm3 (0-0.3); Eosinophils Percent Auto 2.3 % (0-4.4); Hematocrit 31.7 % (42.0-52.0); Hemoglobin 9.1 g/dL (14.0-18.0); Immature Granulocyte Absolute 0.05 K/mm3 (0.00-0.031); Immature Granulocyte Percent A 0.5 % (0-0.5); Lymphocytes Absolute Auto 0.82 K/mm3 (0.9-3.2); Lymphocytes Percent Auto 8.1 % (18.3-44.2); Mean Corpuscular HGB Conc 28.7 g/dl (32-36); Mean Corpuscular Volume 94.1 fl (80-100); Mean Platelet Volume 12.6 fl (7.4-10.4); Monocytes Absolute Auto 0.6 K/mm3 (0.1-0.6); Monocytes Percent Auto 5.7 % (2.6-8.5); Neutrophils Absolute Auto 8.4 K/mm3 (1.3-6.7); Neutrophils Percent Auto 83.3 % (45.5-73.1); Nucleated Red Blood Cells Absolute Auto 0.1 K/mm3 (0.0-0.012); Nucleated Red Blood Cells Perc 0.5 % (0.0-0.2); Platelet Count Result 155 k/mm3 (150-375); Red Blood Count 3.37 M/mm3 (4.6-6.20); Red Cell Distribution Width 15.9 % (11.5-14.5); White Blood Count 10.1 K/mm3 (4.5-10.0)
[2021-06-09 08:06] LABS: Albumin Level 2.6 g/dL (3.5-5.1); Alkaline Phosphatase 128 U/L (38-126); Anion Gap 12 mmol/L (8-16); Aspartate Amino Transferase 134 U/L (17-59); Bilirubin,Total 0.6 mg/dL (0.2-1.3); Blood Urea Nitrogen 66 mg/dL (9-20); Calcium 7.5 mg/dL (8.4-10.2); Carbon Dioxide 16 mmol/L (22-30); Chloride 104 mmol/L (98-107); Estimated CRCL calculation 10 ml/min; Estimated Glomerular Filt Rate 8; Glucose 181 mg/dL (65-110); Magnesium 2.1 mg/dL (1.6-2.3); Phosphorus 4.7 mg/dL (2.5-4.5); Sodium 132 mmol/L (137-145)
[2021-06-09 08:27] LABS: Alanine Aminotransferase 859 U/L (4-50)
[2021-06-09] MEDS: APIXABAN 2.5 MG TABLET PO ×2 (08:52→17:00)
[2021-06-09] MEDS: SEVELAMER CARBONATE 800 MG TABLET PO ×3 (08:52→16:59)
[2021-06-09] MEDS: PANTOPRAZOLE SODIUM IV 40 MG VIAL IV PUSH ×2 (08:53→23:03)
[2021-06-09 09:07] LABS: Glucose Point of Care 165 mg/dl (65-105)
[2021-06-09] MEDS: INSULIN GLARGINE (*BKC) 100 UNITS/ML 20 UNITS SUB-Q (09:21)
[2021-06-09 09:39] LABS: Burr Cells 2+ (NORMAL); Platelet Estimate Adequate (Adequate)
--- NOTE | 2021-06-09 10:10 | PM.PNNEP ---
Progress Note: A&P Assessment and Plan (1) End stage renal disease: Code(s): N18.6 - End stage renal disease Status: Chronic Assessment and Plan: HD Later today follow electrolytes, volume status, and clearance (2) UTI (urinary tract infection): Code(s): N39.0 - Urinary tract infection, site not specified Status: Acute Assessment and Plan: urine culture with Enterococcus on Vancomycin and ceftriaxone. (3) Seizure: Code(s): R56.9 - Unspecified convulsions Status: Acute Assessment and Plan: questionable presence no previous history Neurology following started on IV keppra seizure precautions in place. No activity lately (4) Copious oral secretions: Code(s): R68.89 - Other general symptoms and signs Status: Acute Assessment and Plan: leading to issues with vomiting? possible resulting in aspiration pneumonia? speech therapy recommendations noted seems a little bit better now. (5) Weakness generalized: Code(s): R53.1 - Weakness Status: Acute Assessment and Plan: due to UTI versus aspiration pneumonia versus other or combination of all PT/OT as tolerated continue current therapy Subjective Date/time seen: 06/09/21 10:10 Interval history: patient is awake. Answers questions yes and no. He denies any shortness of breath or pain. Exam Narrative: General: ill-appearing male in NAD Heart: IRRR, normal S1 and S2; no rub Lungs: clear Abdomen: soft, nontender, nondistended, positive bowel sounds Extremities: no edema Skin: no rash Objective Data Vital Signs Vital Signs: Vital Signs - 24 hr 06/08/21 12:00 06/08/21 13:05 06/08/21 16:00 Temperature 36.6 C Pulse Rate 70 71 70 Respiratory Rate 14 Blood Pressure 142/59 H Pulse Oximetry 99 06/08/21 17:24 06/08/21 20:00 06/08/21 22:04 Temperature 36.5 C 35.9 C L Pulse Rate 69 70 65 Respiratory Rate 12 18 Blood Pressure 155/72 H 142/54 H Pulse Oximetry 94 96 06/09/21 00:00 06/09/21 04:00 06/09/21 08:00 Temperature 36.1 C L 35.8 C L 36.3 C L Pulse Rate 70 70 70 Respiratory Rate 18 18 20 Blood Pressure 151/57 H 143/43 H 152/62 H Pulse Oximetry 98 93 97 Intake/Output Intake/Output: Intake & Output 06/06/21 06/07/21 06/08/21 06/09/21 23:59 23:59 23:59 23:59 Intake Total 2025.0 2245.0 3145.0 550 Output Total 1999 Balance 25.0 2245.0 3145.0 550 Meds/Results Medications: Active Medications Generic Name Dose Route Start Last Admin Trade Name Freq PRN Reason Stop Dose Admin Albuterol 2.5 mg 06/03/21 21:53 Albuterol Sulfate Neb 2.5 Mg/0.5 Ml Inh INHALATION Q4HRT PRN Shortness Of Breath Apixaban 2.5 mg 06/03/21 22:00 06/09/21 08:52 Apixaban 2.5 Mg Tablet PO 2.5 mg BID SPIKE Administration Atropine Sulfate 1 drop 06/03/21 20:27 Atropine Sulfate 1% Ophth Soln 5 Ml Bottle SUBLINGUAL Q4H PRN Secretions Clopidogrel Bisulfate 75 mg 06/03/21 22:00 06/08/21 22:03 Clopidogrel Bisulfate 75 Mg Tablet PO 75 mg HS SPIKE Administration Cyanocobalamin 250 mcg 06/04/21 09:00 06/06/21 10:06 Cyanocobalamin 250 Mcg Tablet PO Not Given DAILY SPIKE Dextrose 12.5 gm 06/03/21 21:55 Dextrose 50% 25 Gm/50 Ml Syringe IV PUSH PRN PRN Hypoglycemia Protocol Diphenhydramine HCl 25 mg 06/03/21 22:10 06/08/21 22:03 Diphenhydramine Hcl Cap 25 Mg Capsule PO 07/04/21 22:11 25 mg HS SPIKE Administration Epoetin Matt-epbx 10,000 units 06/09/21 18:54 Epoetin Matt-Epbx 10,000 Units/Ml Vial IV PUSH 06/09/21 18:55 ONCE ONE Ergocalciferol 50,000 unit 06/04/21 09:00 06/04/21 09:26 Ergocalciferol 50,000 Unit Capsule PO 50,000 unit MONTHLY SPIKE Administration Fluoxetine HCl 40 mg 06/04/21 09:00 Fluoxetine Hcl 20 Mg Capsule PO DAILY SPIKE Folic Acid 1 mg 06/04/21 09:00 06/06/21 10:07 Folic
[2021-06-09] MEDS: levETIRAcetam IV 750 MG in DEXTROSE 5% 100 ML 430 MG IVPB ×2 (12:03→23:03)
[2021-06-09 12:32] LABS: Glucose Point of Care 181 mg/dl (65-105)
[2021-06-09 16:09] LABS: Glucose Point of Care 190 mg/dl (65-105)
--- NOTE | 2021-06-09 16:35 | PC.NURSE ---
Dr. Downing updated that dialysis will arrive sometime after 1900 to complete patient's dialysis treatment. and hospitalist made aware.
--- NOTE | 2021-06-09 17:48 | P.PNIM_ITS ---
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 He did need much dinner and then began vomiting multiple times. The patient's felt like he was becoming more weak and not feeling well so she brought him to the emergency room for further evaluation. Initial vitals showed blood pressure 176/61, heart rate 72, respiratory rate increased at 26, afebrile, oxygen saturation 95% on room air. Initial labs show leukocytosis to 15,700 with elevated neutrophils, normocytic anemia with a hemoglobin of 10, hematocrit 34, hyponatremia at 134, elevated creatinine of 4.3, BUN 29, glucose 203, normal LFTs. TSH normal. Urinalysis concerning for urinary tract infection and started on IV Zosyn. He was admitted to the hospital which were lysed weakness, IV fluid hydration and antibiotics for possible UTI. * Urine culture came back growing Enterococcus species with sensitivity to Vanc continue and can adjust once stable for discharge * Blood cultures at this time are negative to date. Continue monitoring patient's wants the patient to go to [facility] for PT/OT therapy after discharge. Pending insurance authorization, acceptance and bed availability (2) Seizure: Code(s): R56.9 - Unspecified convulsions Status: Acute Assessment and Plan: 06/05/21-the nurses called me about a change in the patient's mental status where he was less responsive today and concerns of increased drowsiness. Could be secondary to Enterococcus UTI and not being on appropriate antibiotics in this was changed but during my examination he was found to have focal seizures almost every minute where he would turn his head and eyes to the left and stare off in have some nystagmus. Patient has never had any type of seizure before but he did have a stroke back in December 2020 which puts him at high risk. * I talked and consulted to the neurologist Dr. Christy, who reviewed the EEG and showed focal structural lesion but the paroxysmal discharge not there. * Dr. Christy recommended continuing IV Keppra 750 mg q.12 hours at this time due to renal function/dialysis * Seizure precautions in place. * Will need to continue Keppra on discharge Continue monitoring. Appreciate neurology's input. (3) LFT elevation: Code(s): R79.89 - Other specified abnormal findings of blood chemistry Status: Acute Assessment and Plan: Patient's liver functions elevated significantly 06/04/21 from 54/33 to 2942/1909. DC the patient's IV Tylenol and Zosyn which could have caused the elevation of his liver enzymes * CT on arrival showed normal appearance of his liver, pancreas and no acute abnormality for his vomiting. * Switched IV antibiotics: IV Vancomycin for Enterococcus UTI, IV Rocephin #5 and Metronidazole #4 for possible aspiration pneumonia * Hepatitis panel is negative. Normal total bilirubin. * Lactic acid was elevated at 4.5 which could be from dehydration versus infection and improved to 3.2, but still elevated. * Liver ultrasound showing Cholelithiasis and gallbladder wall thickening. Findings are equivocal for acute cholecystitis. Consider nu
--- NOTE | 2021-06-09 22:17 | PC.NURSE ---
Spoke with Dr. Downing at 2030 on 06/09/2021 and patient will receive dialysis on 06/10/2021.
[2021-06-09] MEDS: GABAPENTIN 300 MG CAPSULE PO (23:03)
[2021-06-09] MEDS: CLOPIDOGREL BISULFATE 75 MG TABLET PO (23:03)
[2021-06-09] MEDS: diphenhydrAMINE HCl CAP 25 MG CAPSULE PO (23:03)
[2021-06-09] MEDS: METOPROLOL TARTRATE 25 MG TABLET PO (23:04)
[2021-06-09 23:42] LABS: Glucose Point of Care 231 mg/dl (65-105)
[2021-06-10] VITALS (24 sets, daily range): BP systolic 110–171; BP diastolic 48–85; PULSE 65–90; RESP 16–20; TEMP 36.2–37; O2SAT 97–100
[2021-06-10] MEDS: metroNIDAZOLE 500 MG/ISO 100ML 500 MG/100 ML BAG 100 MG IVPB ×4 (05:30→17:58)
[2021-06-10 06:05] LABS: Basophils Percent Auto 0.1 % (0.2-1.2); Eosinophils Absolute Auto 0.2 K/mm3 (0-0.3); Eosinophils Percent Auto 2.1 % (0-4.4); Hematocrit 29.6 % (42.0-52.0); Immature Granulocyte Absolute 0.06 K/mm3 (0.00-0.031); Immature Granulocyte Percent A 0.5 % (0-0.5); Lymphocytes Absolute Auto 0.88 K/mm3 (0.9-3.2); Lymphocytes Percent Auto 7.8 % (18.3-44.2); Mean Corpuscular HGB Conc 30.4 g/dl (32-36); Mean Corpuscular Hemoglobin 26.4 pg (26-34); Mean Corpuscular Volume 86.8 fl (80-100); Mean Platelet Volume 12.1 fl (7.4-10.4); Monocytes Absolute Auto 0.6 K/mm3 (0.1-0.6); Monocytes Percent Auto 5.5 % (2.6-8.5); Neutrophils Absolute Auto 9.4 K/mm3 (1.3-6.7); Nucleated Red Blood Cells Perc 0.2 % (0.0-0.2); Platelet Count Result 173 k/mm3 (150-375); Red Blood Count 3.41 M/mm3 (4.6-6.20); White Blood Count 11.2 K/mm3 (4.5-10.0)
[2021-06-10 06:30] LABS: Alanine Aminotransferase 573 U/L (4-50); Albumin Level 2.5 g/dL (3.5-5.1); Alkaline Phosphatase 118 U/L (38-126); Anion Gap 11 mmol/L (8-16); Aspartate Amino Transferase 81 U/L (17-59); Bilirubin,Total 0.4 mg/dL (0.2-1.3); Blood Urea Nitrogen 71 mg/dL (9-20); Calcium 7.5 mg/dL (8.4-10.2); Carbon Dioxide 18 mmol/L (22-30); Chloride 103 mmol/L (98-107); Estimated CRCL calculation 9 ml/min; Estimated Glomerular Filt Rate 7; Glucose 164 mg/dL (65-110); Phosphorus 5.5 mg/dL (2.5-4.5); Potassium 4.1 mmol/L (3.4-5.0); Sodium 132 mmol/L (137-145)
[2021-06-10 07:43] LABS: Glucose Point of Care 132 mg/dl (65-105)
--- NOTE | 2021-06-10 09:08 | PM.IMPN ---
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 He did need much dinner and then began vomiting multiple times. The patient's felt like he was becoming more weak and not feeling well so she brought him to the emergency room for further evaluation. Initial vitals showed blood pressure 176/61, heart rate 72, respiratory rate increased at 26, afebrile, oxygen saturation 95% on room air. Initial labs show leukocytosis to 15,700 with elevated neutrophils, normocytic anemia with a hemoglobin of 10, hematocrit 34, hyponatremia at 134, elevated creatinine of 4.3, BUN 29, glucose 203, normal LFTs. TSH normal. Urinalysis concerning for urinary tract infection and started on IV Zosyn. He was admitted to the hospital which were lysed weakness, IV fluid hydration and antibiotics for possible UTI. Urine culture came back growing Enterococcus species with sensitivity to Vanc continue and can adjust once stable for discharge Blood cultures at this time are negative to date. Continue monitoring patient's wants the patient to go to [facility] for PT/OT therapy after discharge. Pending insurance authorization, acceptance and bed availability (2) Seizure: Code(s): R56.9 - Unspecified convulsions Status: Acute Assessment and Plan: 06/05/21-the nurses called me about a change in the patient's mental status where he was less responsive today and concerns of increased drowsiness. Could be secondary to Enterococcus UTI and not being on appropriate antibiotics in this was changed but during my examination he was found to have focal seizures almost every minute where he would turn his head and eyes to the left and stare off in have some nystagmus. Patient has never had any type of seizure before but he did have a stroke back in December 2020 which puts him at high risk. I talked and consulted to the neurologist Dr. Christy, who reviewed the EEG and showed focal structural lesion but the paroxysmal discharge not there. Dr. Christy recommended continuing IV Keppra 750 mg q.12 hours at this time due to renal function/dialysis Seizure precautions in place. Will need to continue Keppra on discharge Continue monitoring. Appreciate neurology's input. (3) LFT elevation: Code(s): R79.89 - Other specified abnormal findings of blood chemistry Status: Acute Assessment and Plan: Patient's liver functions elevated significantly 06/04/21 from 54/33 to 2942/1909. DC the patient's IV Tylenol and Zosyn which could have caused the elevation of his liver enzymes CT on arrival showed normal appearance of his liver, pancreas and no acute abnormality for his vomiting. Switched IV antibiotics: IV Vancomycin for Enterococcus UTI, IV Rocephin #5 and Metronidazole #4 for possible aspiration pneumonia Hepatitis panel is negative. Normal total bilirubin. Lactic acid was elevated at 4.5 which could be from dehydration versus infection and improved to 3.2, but still elevated. Liver ultrasound showing Cholelithiasis and gallbladder wall thickening. Findings are equivocal for acute cholecystitis. Consider nuclear hepatobiliary scan. *06/05/21*Discussed with the patient about ultrasound LFT findings. Believe it is related to a drug reaction from Zosyn/Tylenol but we cannot rule out acute cholecystitis. Currently antibiotics are covering for acute coli infection. Total bili is normal
[2021-06-10] MEDS: levETIRAcetam IV 750 MG in DEXTROSE 5% 100 ML 430 MG IVPB ×2 (09:48→21:14)
[2021-06-10] MEDS: SCOPOLAMINE 1.5 MG PATCH TRANSDERM (09:52)
[2021-06-10] MEDS: PANTOPRAZOLE SODIUM IV 40 MG VIAL IV PUSH ×2 (09:52→21:40)
[2021-06-10] MEDS: INSULIN GLARGINE (*BKC) 100 UNITS/ML 12 UNITS SUB-Q (09:53)
--- NOTE | 2021-06-10 10:34 | PM.PNNEP ---
Progress Note: A&P Assessment and Plan (1) End stage renal disease: Code(s): N18.6 - End stage renal disease Status: Chronic Assessment and Plan: HD was not done yesterday because of emergencies. Will get a treatment today and then resume Wednesday schedule tomorrow. follow electrolytes, volume status, and clearance (2) UTI (urinary tract infection): Code(s): N39.0 - Urinary tract infection, site not specified Status: Acute Assessment and Plan: urine culture with Enterococcus on Vancomycin and ceftriaxone. (3) Seizure: Code(s): R56.9 - Unspecified convulsions Status: Acute Assessment and Plan: questionable presence no previous history Neurology following started on IV keppra seizure precautions in place. No activity lately (4) Copious oral secretions: Code(s): R68.89 - Other general symptoms and signs Status: Acute Assessment and Plan: No recent events. (5) Weakness generalized: Code(s): R53.1 - Weakness Status: Acute Assessment and Plan: due to UTI versus aspiration pneumonia versus other or combination of all PT/OT as tolerated continue current therapy Subjective Date/time seen: 06/10/21 10:34 Interval history: patient is awake. Answers questions yes and no. Very tired today. Exam Narrative: General: ill-appearing male in NAD Heart: IRRR, normal S1 and S2; no rub Lungs: clear bilaterally Abdomen: soft, nontender, nondistended, positive bowel sounds Extremities: no edema Skin: no rash or subQ nodules Objective Data Vital Signs Vital Signs: Vital Signs - 24 hr 06/09/21 12:00 06/09/21 12:52 06/09/21 16:00 Temperature 35.7 C L 36.4 C Pulse Rate 70 72 Respiratory Rate 20 16 Blood Pressure 152/60 H 152/60 H 153/71 H Pulse Oximetry 98 94 06/09/21 20:00 06/09/21 23:04 06/09/21 23:55 Temperature 36.1 C L 36.6 C Pulse Rate 71 70 69 Respiratory Rate 17 20 Blood Pressure 151/47 H 139/56 L Pulse Oximetry 97 100 06/10/21 00:00 06/10/21 00:47 06/10/21 03:45 Temperature 36.8 C Pulse Rate 70 88 69 Respiratory Rate 18 Blood Pressure 126/48 L Pulse Oximetry 97 06/10/21 04:00 06/10/21 08:00 06/10/21 09:49 Temperature Pulse Rate 70 73 90 Respiratory Rate Blood Pressure Pulse Oximetry Intake/Output Intake/Output: Intake & Output 06/07/21 06/08/21 06/09/21 06/10/21 23:59 23:59 23:59 23:59 Intake Total 2245.0 3145.0 1325.0 450 Output Total 0 Balance 2245.0 3145.0 1325.0 450 Meds/Results Medications: Active Medications Generic Name Dose Route Start Last Admin Trade Name Freq PRN Reason Stop Dose Admin Albuterol 2.5 mg 06/03/21 21:53 Albuterol Sulfate Neb 2.5 Mg/0.5 Ml Inh INHALATION Q4HRT PRN Shortness Of Breath Apixaban 2.5 mg 06/03/21 22:00 06/10/21 09:49 Apixaban 2.5 Mg Tablet PO Not Given BID SPIKE Atropine Sulfate 1 drop 06/03/21 20:27 Atropine Sulfate 1% Ophth Soln 5 Ml Bottle SUBLINGUAL Q4H PRN Secretions Clopidogrel Bisulfate 75 mg 06/03/21 22:00 06/09/21 23:03 Clopidogrel Bisulfate 75 Mg Tablet PO 75 mg HS SPIKE Administration Cyanocobalamin 250 mcg 06/04/21 09:00 06/06/21 10:06 Cyanocobalamin 250 Mcg Tablet PO Not Given DAILY SPIKE Dextrose 12.5 gm 06/03/21 21:55 Dextrose 50% 25 Gm/50 Ml Syringe IV PUSH PRN PRN Hypoglycemia Protocol Diphenhydramine HCl 25 mg 06/03/21 22:10 06/09/21 23:03 Diphenhydramine Hcl Cap 25 Mg Capsule PO 07/04/21 22:11 25 mg HS SPIKE Administration Ergocalciferol 50,000 unit 06/04/21 09:00 06/04/21 09:26 Ergocalciferol 50,000 Unit Capsule PO 50,000 unit MONTHLY SPIKE Administration Fluoxetine HCl 40 mg 06/04/21 09:00 Fluoxetine Hcl 20 Mg Capsule PO DAILY SPIKE Folic Acid 1 mg 06/04/21 09:00 06/06/21 10:07 Folic Acid 1 Mg Tablet PO
[2021-06-10 12:25] LABS: Glucose Point of Care 127 mg/dl (65-105)
[2021-06-10] MEDS: SEVELAMER CARBONATE 800 MG TABLET PO ×2 (12:50→17:58)
--- NOTE | 2021-06-10 14:23 | PC.NURSE ---
On 06/10/21, the student, [Suzie Berg ], provided care and completed [facility] documentation on this patient. I have reviewed the student's documentation and agree with the findings.
--- NOTE | 2021-06-10 15:22 | PCPTNOTE ---
PT attempted to see patient this A.M., however patient out of room for test. PT attempted again this afternoon but patient in dialysis and unable to be seen. PT will continue to follow per plan of care.
[2021-06-10] MEDS: EPOETIN ALFA-EPBX 10,000 UNITS/ML VIAL 10000 UNITS IV PUSH (15:27)
[2021-06-10] MEDS: SODIUM CHLORIDE 0.9% IV 1,000 ML 999 ML IV CONT (15:28)
[2021-06-10] MEDS: ALTEPLASE 2 MG VIAL (CATHFLO) IV PUSH ×2 (17:21)
[2021-06-10 17:24] LABS: Glucose Point of Care 92 mg/dl (65-105)
[2021-06-10] MEDS: APIXABAN 2.5 MG TABLET PO (17:58)
[2021-06-10 19:26] LABS: Vancomycin Random 11.4 ug/mL (10-20)
[2021-06-10] MEDS: diphenhydrAMINE HCl CAP 25 MG CAPSULE PO (21:14)
[2021-06-10] MEDS: CLOPIDOGREL BISULFATE 75 MG TABLET PO (21:14)
[2021-06-10] MEDS: GABAPENTIN 300 MG CAPSULE PO (21:14)
[2021-06-10] MEDS: METOPROLOL TARTRATE 25 MG TABLET PO (21:40)
[2021-06-11] VITALS (17 sets, daily range): BP systolic 122–161; BP diastolic 46–69; PULSE 66–72; RESP 18–20; TEMP 36.4–37.2; O2SAT 94–100
[2021-06-11] MEDS: metroNIDAZOLE 500 MG/ISO 100ML 500 MG/100 ML BAG 100 MG IVPB ×4 (00:13→16:59)
[2021-06-11 00:50] LABS: Glucose Point of Care 161 mg/dl (65-105)
[2021-06-11 06:55] LABS: Hematocrit 30.1 % (42.0-52.0); Hemoglobin 9.4 g/dL (14.0-18.0); Mean Corpuscular HGB Conc 31.2 g/dl (32-36); Mean Corpuscular Hemoglobin 27.5 pg (26-34); Mean Platelet Volume 12.4 fl (7.4-10.4); Platelet Count Result 182 k/mm3 (150-375); Red Blood Count 3.42 M/mm3 (4.6-6.20); White Blood Count 9.8 K/mm3 (4.5-10.0)
[2021-06-11 07:34] LABS: Alanine Aminotransferase 433 U/L (4-50); Albumin Level 2.7 g/dL (3.5-5.1); Alkaline Phosphatase 121 U/L (38-126); Anion Gap 10 mmol/L (8-16); Aspartate Amino Transferase 60 U/L (17-59); Bilirubin,Total 0.5 mg/dL (0.2-1.3); Blood Urea Nitrogen 40 mg/dL (9-20); Calcium 7.6 mg/dL (8.4-10.2); Carbon Dioxide 24 mmol/L (22-30); Chloride 95 mmol/L (98-107); Estimated CRCL calculation 14 ml/min; Estimated Glomerular Filt Rate 12; Glucose 125 mg/dL (65-110); Phosphorus 4.1 mg/dL (2.5-4.5); Potassium 3.7 mmol/L (3.4-5.0); Sodium 129 mmol/L (137-145)
[2021-06-11] MEDS: INSULIN GLARGINE (*BKC) 100 UNITS/ML 20 UNITS SUB-Q (08:09)
[2021-06-11] MEDS: SEVELAMER CARBONATE 800 MG TABLET PO ×3 (08:11→16:56)
[2021-06-11] MEDS: APIXABAN 2.5 MG TABLET PO ×2 (08:12→16:56)
[2021-06-11] MEDS: METOPROLOL TARTRATE 25 MG TABLET PO ×2 (08:12→20:48)
[2021-06-11] MEDS: levETIRAcetam IV 750 MG in DEXTROSE 5% 100 ML 430 MG IVPB ×2 (08:13→20:52)
[2021-06-11] MEDS: PANTOPRAZOLE SODIUM IV 40 MG VIAL IV PUSH ×2 (08:14→20:49)
[2021-06-11 08:24] LABS: Glucose Point of Care 116 mg/dl (65-105)
--- NOTE | 2021-06-11 08:24 | PM.PNNEP ---
Progress Note: A&P Assessment and Plan (1) End stage renal disease: Code(s): N18.6 - End stage renal disease Status: Chronic Assessment and Plan: HD was done yesterday. Do another treatment today to get him back on schedule follow electrolytes, volume status, and clearance (2) UTI (urinary tract infection): Code(s): N39.0 - Urinary tract infection, site not specified Status: Acute Assessment and Plan: urine culture with Enterococcus on Vancomycin and ceftriaxone. (3) Seizure: Code(s): R56.9 - Unspecified convulsions Status: Acute Assessment and Plan: questionable presence no previous history Neurology following started on IV keppra seizure precautions in place. No activity lately (4) Copious oral secretions: Code(s): R68.89 - Other general symptoms and signs Status: Acute Assessment and Plan: No recent events. (5) Weakness generalized: Code(s): R53.1 - Weakness Status: Acute Assessment and Plan: due to UTI versus aspiration pneumonia versus other or combination of all PT/OT as tolerated continue current therapy Subjective Date/time seen: 06/11/21 08:24 Interval history: patient is awake. Answers questions yes and no. no chest pain or shortness of breath. Due for dialysis today. Exam Narrative: General: ill-appearing male in NAD Heart: IRRR, normal S1 and S2; no rub Lungs: clear To auscultation Abdomen: soft, nontender, nondistended, positive bowel sounds Extremities: no edema Skin: no rash or subQ nodules Objective Data Vital Signs Vital Signs: Vital Signs - 24 hr 06/10/21 09:49 06/10/21 12:00 06/10/21 13:00 Temperature 36.5 C Pulse Rate 90 70 72 Respiratory Rate 18 Blood Pressure 152/57 H Pulse Oximetry 98 06/10/21 14:05 06/10/21 14:13 06/10/21 14:50 Temperature 36.4 C L Pulse Rate 69 69 69 Respiratory Rate 16 Blood Pressure 163/80 H 171/85 H 110/54 L Pulse Oximetry 06/10/21 15:10 06/10/21 15:30 06/10/21 15:50 Temperature Pulse Rate 70 69 69 Respiratory Rate Blood Pressure 135/63 142/71 H 134/67 Pulse Oximetry 06/10/21 16:00 06/10/21 16:10 06/10/21 16:30 Temperature Pulse Rate 70 71 69 Respiratory Rate Blood Pressure 131/65 138/70 Pulse Oximetry 06/10/21 16:50 06/10/21 17:10 06/10/21 17:30 Temperature Pulse Rate 69 67 69 Respiratory Rate Blood Pressure 171/73 H 125/69 137/56 L Pulse Oximetry 06/10/21 17:43 06/10/21 17:54 06/10/21 20:00 Temperature 36.2 C L 36.3 C L Pulse Rate 69 65 70 Respiratory Rate 16 20 Blood Pressure 135/67 129/63 145/52 H Pulse Oximetry 100 06/11/21 00:00 06/11/21 04:00 06/11/21 08:12 Temperature 36.6 C 37.2 C Pulse Rate 70 71 72 Respiratory Rate 20 20 Blood Pressure 144/52 H 135/46 L Pulse Oximetry 100 94 Intake/Output Intake/Output: Intake & Output 06/08/21 06/09/21 06/10/21 06/11/21 23:59 23:59 23:59 23:59 Intake Total 3145.0 1325.0 1635.0 150 Output Total 0 2000 Balance 3145.0 1325.0 -365.0 150 Meds/Results Medications: Active Medications Generic Name Dose Route Start Last Admin Trade Name Freq PRN Reason Stop Dose Admin Albuterol 2.5 mg 06/03/21 21:53 Albuterol Sulfate Neb 2.5 Mg/0.5 Ml Inh INHALATION Q4HRT PRN Shortness Of Breath Alteplase, Recombinant 2 mg 06/10/21 15:34 06/10/21 17:21 Alteplase 2 Mg Vial (Cathflo) IV PUSH 2 mg ONCE PRN Administration Line Occlusion Alteplase, Recombinant 2 mg 06/10/21 15:37 06/10/21 17:21 Alteplase 2 Mg Vial (Cathflo) IV PUSH 2 mg ONCE PRN Administration Line Occlusion Apixaban 2.5 mg 06/03/21 22:00 06/11/21 08:12 Apixaban 2.5 Mg Tablet PO 2.5 mg BID SPIKE Administration Atropine Sulfate 1 drop 06/03/21 20:27 Atropine Sulfate 1% Ophth Soln 5 Ml Bottle SUBLINGUAL Q4H PRN Secretions
--- NOTE | 2021-06-11 10:00 | PCPTNOTE ---
Patient out of room for dialysis this morning, unable to be seen for PT.
--- NOTE | 2021-06-11 11:47 | PCNFU ---
Nutrition Follow-Up Complete: Inadequate oral intake related to stroke as evidenced by inability to feed self and 50% meal consumption. Goal: Patient to meet estimated nutritional needs. Patient is progressing towards goal. No new goal at this time. Pt current nutrition is regular diet with level 6 soft and bite sized and thickened liquids. Last recorded weight is 89.1 kg. Bowel Motility: + BM 06/10/2021 Labs Reviewed: Hgb 9.4, Hct 30.1, Alb 2.7, Na 129, GFR 12, BUN 40, Cr 4.8, Glu 125 Meds Noted: Albutein, Albuterol, Eliquis, Plavix, Vitamin B-12 tablet, Retacrit, Drisdol, Prozac, Folic Acid, Neurontin, Novolog, Lantus, Lopressor, Renvela, Scopolamine, Vancomycin Hcl Additional Notes: Patient is consuming on average 58% of meals ordered. ESRD on dialysis. No skin issues documented. Monitor patient's labs, medications, weight, and oral intake every 5 days.
[2021-06-11] MEDS: EPOETIN ALFA-EPBX 10,000 UNITS/ML VIAL 10000 UNITS IV PUSH ×2 (12:59→13:00)
--- NOTE | 2021-06-11 13:03 | PM.IMPN ---
Progress Note: A&P Assessment and Plan (1) UTI (urinary tract infection): Code(s): N39.0 - Urinary tract infection, site not specified Status: Inactive Assessment and Plan: (2) Seizure: Code(s): R56.9 - Unspecified convulsions Status: Acute Assessment and Plan: (3) LFT elevation: Code(s): R79.89 - Other specified abnormal findings of blood chemistry Status: Acute Assessment and Plan: (4) Sepsis: Code(s): A41.9 - Sepsis, unspecified organism Status: Acute Assessment and Plan: (5) Weakness generalized: Code(s): R53.1 - Weakness Status: Inactive Assessment and Plan: (6) Hemodialysis patient: Code(s): Z99.2 - Dependence on renal dialysis Status: Acute Assessment and Plan: (7) Hypothyroidism: Qualifiers: Hypothyroidism type: due to medication Qualified Code(s): E03.2 - Hypothyroidism due to medicaments and other exogenous substances Code(s): E03.9 - Hypothyroidism, unspecified Status: Acute Assessment and Plan: (8) Tobacco abuse: Code(s): Z72.0 - Tobacco use Status: Acute Assessment and Plan: (9) CVA (cerebral vascular accident): Qualifiers: CVA mechanism: thrombosis Laterality of affected vessel: left Code(s): I63.9 - Cerebral infarction, unspecified Status: Acute Assessment and Plan: (10) ESRD on dialysis: Code(s): N18.6 - End stage renal disease; Z99.2 - Dependence on renal dialysis Status: Acute Assessment and Plan: (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: Code(s): E11.22 - Type 2 diabetes mellitus with diabetic chronic kidney disease; I12.0 - Hypertensive chronic kidney disease with stage 5 chronic kidney disease or end stage renal disease; N18.5 - Chronic kidney disease, stage 5 Status: Acute Assessment and Plan: (12) Hypertension: Code(s): I10 - Essential (primary) hypertension Status: Chronic Assessment and Plan: (13) Hyperlipidemia: Code(s): E78.5 - Hyperlipidemia, unspecified Status: Chronic Assessment and Plan: (14) Copious oral secretions: Code(s): R68.89 - Other general symptoms and signs Status: Acute Assessment and Plan: (15) Dysphagia: Code(s): R13.10 - Dysphagia, unspecified Status: Acute Assessment and Plan: Additional Plan Patient is a 71-year-old man with a history of CAD, end-stage renal disease on dialysis, diabetes, CVA in December of 2020 causing expressive aphasia and right-sided weakness, who presented to emergency room with vomiting and generalized weakness.06/02/21, the patient went to dialysis and came home and was not feeling too well. He did need much dinner and then began vomiting multiple times. The patient's felt like he was becoming more weak and not feeling well so she brought him to the emergency room for further evaluation. Initial vitals showed blood pressure 176/61, heart rate 72, respiratory rate increased at 26, afebrile, oxygen saturation 95% on room air. Initial labs show leukocytosis to 15,700 with elevated neutrophils, normo
[2021-06-11 14:02] LABS: Glucose Point of Care 85 mg/dl (65-105)
[2021-06-11] MEDS: INSULIN ASPART (*BKC) 100 UNITS/ML SUB-Q (16:53)
[2021-06-11 16:55] LABS: Glucose Point of Care 239 mg/dl (65-105)
[2021-06-11 19:01] LABS: Vancomycin Random 16.8 ug/mL (10-20)
[2021-06-11] MEDS: GABAPENTIN 300 MG CAPSULE PO (20:48)
[2021-06-11] MEDS: diphenhydrAMINE HCl CAP 25 MG CAPSULE PO (20:48)
[2021-06-11] MEDS: CLOPIDOGREL BISULFATE 75 MG TABLET PO (20:48)
[2021-06-11 21:21] LABS: Glucose Point of Care 210 mg/dl (65-105)
[2021-06-12] VITALS (7 sets, daily range): BP systolic 155–157; BP diastolic 56–59; PULSE 70; RESP 18–20; TEMP 36.7–36.8; O2SAT 94–98
[2021-06-12] MEDS: metroNIDAZOLE 500 MG/ISO 100ML 500 MG/100 ML BAG 100 MG IVPB ×3 (00:48→12:51)
[2021-06-12 07:31] LABS: Albumin Level 2.7 g/dL (3.5-5.1); Anion Gap 6 mmol/L (8-16); Blood Urea Nitrogen 23 mg/dL (9-20); Calcium 7.6 mg/dL (8.4-10.2); Carbon Dioxide 27 mmol/L (22-30); Chloride 98 mmol/L (98-107); Estimated CRCL calculation 19 ml/min; Estimated Glomerular Filt Rate 17; Glucose 139 mg/dL (65-110); Phosphorus 3.7 mg/dL (2.5-4.5); Potassium 3.5 mmol/L (3.4-5.0); Sodium 131 mmol/L (137-145)
[2021-06-12] MEDS: SEVELAMER CARBONATE 800 MG TABLET PO ×2 (07:59→12:51)
[2021-06-12] MEDS: METOPROLOL TARTRATE 25 MG TABLET PO (07:59)
[2021-06-12] MEDS: APIXABAN 2.5 MG TABLET PO (08:00)
[2021-06-12] MEDS: PANTOPRAZOLE SODIUM IV 40 MG VIAL IV PUSH (08:01)
[2021-06-12 08:18] LABS: Glucose Point of Care 131 mg/dl (65-105)
[2021-06-12] MEDS: INSULIN GLARGINE (*BKC) 100 UNITS/ML 20 UNITS SUB-Q (08:36)
--- NOTE | 2021-06-12 08:49 | PM.PNNEP ---
Progress Note: A&P Assessment and Plan (1) End stage renal disease: Code(s): N18.6 - End stage renal disease Status: Chronic Assessment and Plan: HD due tomorrow volume status looks okay. Potassium is fine. (2) UTI (urinary tract infection): Code(s): N39.0 - Urinary tract infection, site not specified Status: Acute Assessment and Plan: urine culture with Enterococcus on Vancomycin and ceftriaxone. (3) Seizure: Code(s): R56.9 - Unspecified convulsions Status: Acute Assessment and Plan: Neurology following started on IV keppra seizure precautions in place. No activity lately (4) Copious oral secretions: Code(s): R68.89 - Other general symptoms and signs Status: Acute Assessment and Plan: No recent events. (5) Weakness generalized: Code(s): R53.1 - Weakness Status: Acute Assessment and Plan: due to UTI versus aspiration pneumonia versus other or combination of all PT/OT as tolerated continue current therapy Subjective Date/time seen: 06/12/21 08:49 Interval history: patient is awake. in good spirits today. Apparently to be discharged today to rehab. Exam Narrative: General: ill-appearing male in NAD Heart: IRRR, normal S1 and S2; no rub Lungs: clear Abdomen: soft, nontender, nondistended, positive bowel sounds Extremities: no edema Or cyanosis Skin: no rash or subQ nodules Objective Data Vital Signs Vital Signs: Vital Signs - 24 hr 06/11/21 09:39 06/11/21 09:50 06/11/21 10:00 Temperature 36.8 C Pulse Rate 69 69 69 Respiratory Rate 20 Blood Pressure 127/60 127/60 129/58 L Pulse Oximetry 06/11/21 11:00 06/11/21 12:00 06/11/21 13:00 Temperature Pulse Rate 69 69 66 Respiratory Rate Blood Pressure 132/46 L 122/55 L 129/50 L Pulse Oximetry 06/11/21 13:23 06/11/21 13:30 06/11/21 14:00 Temperature 36.8 C 36.6 C Pulse Rate 70 69 70 Respiratory Rate 20 18 Blood Pressure 126/57 L 135/69 145/53 H Pulse Oximetry 99 06/11/21 16:00 06/11/21 20:00 06/11/21 20:48 Temperature Pulse Rate 72 70 70 Respiratory Rate Blood Pressure Pulse Oximetry 06/11/21 22:00 06/12/21 00:00 06/12/21 04:00 Temperature 36.4 C L Pulse Rate 69 70 70 Respiratory Rate 18 Blood Pressure 161/66 H Pulse Oximetry 100 06/12/21 06:00 06/12/21 07:59 Temperature 36.7 C Pulse Rate 70 70 Respiratory Rate 20 Blood Pressure 155/59 H Pulse Oximetry 95 Intake/Output Intake/Output: Intake & Output 06/09/21 06/10/21 06/11/21 06/12/21 23:59 23:59 23:59 23:59 Intake Total 1325.0 1635.0 935.0 250 Output Total 0 1999 1999 Balance 1325.0 -365.0 -1065.0 250 Meds/Results Medications: Active Medications Generic Name Dose Route Start Last Admin Trade Name Freq PRN Reason Stop Dose Admin Albuterol 2.5 mg 06/03/21 21:53 Albuterol Sulfate Neb 2.5 Mg/0.5 Ml Inh INHALATION Q4HRT PRN Shortness Of Breath Alteplase, Recombinant 2 mg 06/10/21 15:34 06/10/21 17:21 Alteplase 2 Mg Vial (Cathflo) IV PUSH 2 mg ONCE PRN Administration Line Occlusion Alteplase, Recombinant 2 mg 06/10/21 15:37 06/10/21 17:21 Alteplase 2 Mg Vial (Cathflo) IV PUSH 2 mg ONCE PRN Administration Line Occlusion Apixaban 2.5 mg 06/03/21 22:00 06/12/21 08:00 Apixaban 2.5 Mg Tablet PO 2.5 mg BID SPIKE Administration Atropine Sulfate 1 drop 06/03/21 20:27 Atropine Sulfate 1% Ophth Soln 5 Ml Bottle SUBLINGUAL Q4H PRN Secretions Clopidogrel Bisulfate 75 mg 06/03/21 22:00 06/11/21 20:48 Clopidogrel Bisulfate 75 Mg Tablet PO 75 mg HS SPIKE Administration Cyanocobalamin 250 mcg 06/04/21 09:00 06/06/21 10:06 Cyanocobalamin 250 Mcg Tablet PO Not Given DAILY SPIKE Dextrose 12.5 gm 06/03/21 21:55 Dextrose 50% 25 Gm/50 Ml Syringe IV PUSH PRN PRN Hypoglycemi
[2021-06-12] MEDS: levETIRAcetam IV 750 MG in DEXTROSE 5% 100 ML 430 MG IVPB (09:29)
[2021-06-12 11:56] LABS: Glucose Point of Care 149 mg/dl (65-105)
--- NOTE | 2021-06-12 13:36 | PM.DS ---
DS: Admitting Diagnosis Discharge Date 06/12/21 Admitting Diagnosis (1) UTI (urinary tract infection): Code(s): N39.0 - Urinary tract infection, site not specified Status: Acute Assessment and Plan: The patient was started on Zosyn for UTI. Urine and blood cultures are pending. The reason why this antibiotic was chosen is to cover in the event the patient has been aspirating. (2) Weakness generalized: Code(s): R53.1 - Weakness Status: Acute Assessment and Plan: The patient had a recent stroke back in December. The states that the patient has not been aspirating. He has had a decrease in appetite and has been vomiting. Will have PT and OT evaluate the patient. (3) Hemodialysis patient: Code(s): Z99.2 - Dependence on renal dialysis Status: Acute Assessment and Plan: The patient has a catheter in the right upper chest. The patient did have AV fistulas right forearm but had to be removed because of steal syndrome. The patient has dialysis on Wednesday and Wednesday. Patient is due for dialysis tomorrow. There is some pleural effusion noted on his CT of his abdomen. (4) Hypothyroidism: Qualifiers: Hypothyroidism type: due to medication Qualified Code(s): E03.2 - Hypothyroidism due to medicaments and other exogenous substances Code(s): E03.9 - Hypothyroidism, unspecified Status: Acute Assessment and Plan: Check thyroid levels. I do not see any thyroid medication on his medication rec insulin (5) Tobacco abuse: Code(s): Z72.0 - Tobacco use Status: Acute Assessment and Plan: The patient's continues to allow the patient to have 4 cigarettes a day. We have discussed smoking cessation. However the patient's stated that she did not want to take this away from him since he is down to 4 cigarettes a day. (6) CVA (cerebral vascular accident): Qualifiers: CVA mechanism: thrombosis Laterality of affected vessel: left Code(s): I63.9 - Cerebral infarction, unspecified Status: Acute Assessment and Plan: The patient is on Plavix and has had a carotid enterectomy in the past. I received a message from pharmacy that patient is at risk for bleeding with a combination of medication including fluoxetine therefore I held fluoxetine. (7) ESRD on dialysis: Code(s): N18.6 - End stage renal disease; Z99.2 - Dependence on renal dialysis Status: Acute Assessment and Plan: Patient receives dialysis on Wednesday nephrology has been consulted. Continue with sevelamer. 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 Check A1c. (9) Hypertension: Code(s): I10 - Essential (primary) hypertension Status: Chronic Assessment and Plan: Continue with home medication of metoprolol (10) Hyperlipidemia: Code(s): E78.5 - Hyperlipidemia, unspecified Status: Chronic DS: Discharge Diagnosis Discharge Diagnosis (1) Dysphagia: Code(s): R13.10 - Dysphagia, unspecified Status: Acute (2) Sepsis: Code(s): A41.9 - Sepsis, unspecified organism Status: Acute (3) Seizure: Code(s): R56.9 - Unspecified convulsions Status: Acute (4) End stage renal disease: Code(s): N18.6 - End stage renal disease Status: Chronic (5) Elevated lactic acid level: Code(s): R79.89 - Other specified abnormal findings of blood chemistry Status: Acute (6) Copious oral secretions: Code(s): R68.89 - Other general symptoms and signs Status: Acute (7) Hyperlipidemia: Code(s): E78.5 - Hyperlipidemia, unspecified
[2021-06-12 14:45] LABS: EDCOVIDSCREEN Negative (Negative)
--- NOTE | 2021-06-12 16:44 | PC.NURSE ---
On 06/12/21, the student, Mely Ng, provided care and completed [facility] documentation on this patient. I have reviewed the student's documentation and agree with the findings.
== END 2021-06-12 16:40 | DRG 871 ==
LOC: ANHED 15:16 → ANH3MEDSUR 17:34
PROVIDERS: Internal Medicine; Internal Medicine Nephrology; Nurse Practitioner; Physician Assistant; Admitting Provider Family Medicine; Emergency Provider Emergency Medicine; PCP Family Medicine; Visit Provider Hospitalist
DX: A41.9 Sepsis, unspecified organism (principal); N18.6 End stage renal disease; J69.0 Pneumonitis due to inhalation of food and vomit; N39.0 Urinary tract infection, site not specified; I48.20 Chronic atrial fibrillation, unspecified; I13.2 Hypertensive heart and chronic kidney disease with heart failure and with stage 5 chronic kidney disease, or end stage renal disease; I69.351 Hemiplegia and hemiparesis following cerebral infarction affecting right dominant side; K81.0 Acute cholecystitis; E46 Unspecified protein-calorie malnutrition; B95.2 Enterococcus as the cause of diseases classified elsewhere; I50.9 Heart failure, unspecified; Z20.822 Contact with and (suspected) exposure to COVID-19; D64.9 Anemia, unspecified; N40.0 Benign prostatic hyperplasia without lower urinary tract symptoms; I25.10 Atherosclerotic heart disease of native coronary artery without angina pectoris; R56.9 Unspecified convulsions; I69.391 Dysphagia following cerebral infarction; R13.10 Dysphagia, unspecified; E11.22 Type 2 diabetes mellitus with diabetic chronic kidney disease; J44.9 Chronic obstructive pulmonary disease, unspecified; K21.9 Gastro-esophageal reflux disease without esophagitis; F32.9 Major depressive disorder, single episode, unspecified; E03.9 Hypothyroidism, unspecified; E78.00 Pure hypercholesterolemia, unspecified; E11.51 Type 2 diabetes mellitus with diabetic peripheral angiopathy without gangrene; E86.0 Dehydration; F17.210 Nicotine dependence, cigarettes, uncomplicated; Z95.5 Presence of coronary angioplasty implant and graft; Z86.718 Personal history of other venous thrombosis and embolism; Z99.2 Dependence on renal dialysis; I69.320 Aphasia following cerebral infarction; Z68.25 Body mass index [BMI] 25.0-25.9, adult; Z79.02 Long term (current) use of antithrombotics/antiplatelets
CPT/HCPCS: 36415; 70450; 71045; 71046; 74176; 76705; 78227; 80053; 80069; 80074; 80202; 81001; 82948; 83036; 83605; 83690; 83735; 84100; 84443; 85025; 85027; 85610; 85730; 86140; 86706; 86850; 86900; 86901; 87040; 87077; 87086; 87088; 87186; 87340; 87426; 92610; 92611; 93005; 95816; 96361; 96365; 96375; 96376; 97162; 97165; 97530; 99285; A9270; A9537; C9113; C9803; G0257; G0378; J0131; J0696; J1644; J1815; J1953; J2060; J2405; J2543; J2805; J2920; J2997; J3370; J7030; Q5106

== ENCOUNTER 2021-06-15 09:31 | Inpatient (IN) | payer MEDICARE, SELFPAY ==
[2021-06-15] VITALS (15 sets, daily range): BP systolic 102–155; BP diastolic 38–103; PULSE 67–82; RESP 16–30; TEMP 36.2–36.8; O2SAT 92–100; BMI 25.1
--- NOTE | ~2021-06-15 | XR_ITS ---
EXAMINATION: XR chest 1V portable EXAM DATE: 06/15/2021 10:17 INDICATION: Shortness of breath and hypoxia. TECHNIQUE: Portable AP frontal chest x-ray was obtained. Comparison is made to prior examination from 06/05/2021. FINDINGS: Development of left basilar multi segmental patchy ill-defined acute airspace disease, cons ider pneumonia or edema. Smaller amount of right basilar airspace disease. No pneumothorax or pleural effusion. Cardiomediastinal silhouette is normal. Multi lead pacemaker/AICD device. Meraz dialysis catheter in position. IMPRESSION: 1. Development of moderate left, smaller right basilar pneumonia or edema. Reviewed, dictated and finalized at location A.
--- NOTE | 2021-06-15 09:40 | ECG_ITS ---
Measurements Intervals [place] Rate: 74 P: VT: 0 QRS: 103 QRSD: 136 T: 60 QT: 441 QTc: 490 Interpretive Statements ELECTRONIC VENTRICULAR PACEMAKER UNDERLYING ATRIAL FLUTTER/TACHYCARDIA BASELINE ARTIFACT- I, II, III, AVR, AVL, AVF, V2-V6 NO FURTHER INTERPRETATION IS POSSIBLE ABNORMAL ECG Electronically Signed On 06-15-2021 12:07:21 CDT by Sadiq Dobson D.O.
--- NOTE | 2021-06-15 09:40 | ED.SOB ---
HPI - SOB/Dyspnea General Chief Complaint: Shortness of Breath/Dyspnea Stated Complaint: SOB Time Seen by Provider: 06/15/21 09:40 Source: EMS and RN notes reviewed Mode of arrival: EMS Limitations: physical limitation and clinical condition History of Present Illness HPI Narrative: 71 years old white male brought to the emergency room by ambulance from [facility] with a chief complaint of shortness of breath and audible rales noticed this morning. Patient is hemodialysis, the patient has dialysis on Wednesday, Wednesday and Wednesday. Patient was discharged from our facility on the of this month with urinary tract infection and general weakness. Related Data Home Medications Medication Instructions Recorded Confirmed folic acid 20 mg capsule 20 mg PO DAILY 08/08/19 06/03/21 pantoprazole 40 mg tablet,delayed 40 mg PO BID 08/08/19 06/03/21 release diphenhydramine 25 1 tablet PO HS 01/23/20 06/03/21 mg-acetaminophen 500 mg tablet apixaban 5 mg tablet 2.5 mg PO BID tablet 01/16/21 06/03/21 clopidogrel 75 mg tablet 75 mg PO HS tablet 01/16/21 06/03/21 glucagon 1 mg/0.2 mL subcutaneous 1 mg SUBCUT ONCE ml 02/27/21 06/03/21 auto-injector metoprolol tartrate 25 mg tablet 25 mg PO BID tablet 03/10/21 06/03/21 sevelamer HCl 800 mg tablet 800 mg PO TID 03/10/21 06/03/21 Triphrocaps 1 cap DAILY 06/03/21 06/03/21 atorvastatin [Lipitor] 80 mg PO HS 06/03/21 06/03/21 cyanocobalamin (vitamin B-12) 250 mcg PO DAILY 06/03/21 06/03/21 ergocalciferol (vitamin D2) 50,000 unit PO MONTHLY 06/03/21 06/03/21 gabapentin 300 mg PO HS 06/03/21 06/03/21 Allergies Allergy/AdvReac Type Severity Reaction Status Date / Time adhesive tape Allergy Unknown RASH Verified 05/15/21 09:12 codeine Allergy Unknown Gastrointestinal Verified 06/03/21 17:50 Upset morphine Allergy Unknown Itching Verified 06/03/21 17:50 warfarin [From Coumadin] AdvReac Mild Drowsy Verified 06/03/21 17:50 Review of Systems Review of Systems: ROS unobtainable: Yes unobtainable due to mental status PMFSH Past Medical History Medical History A-fib Adult BMI 26.0-26.9 kg/sq m Anemia Anemia, unspecified Benign prostatic hyperplasia without lower urinary tract symptoms BPH (benign prostatic hyperplasia) CAD (coronary artery disease) CHF (congestive heart failure) CKD (chronic kidney disease) Collar bone fracture COPD (chronic obstructive pulmonary disease) Coronary artery disease involving [place] artery of transplanted heart CVA (cerebral vascular accident) CVA (cerebral vascular accident) Depression Dialysis patient DM (diabetes mellitus) DVT (deep venous thrombosis) Fistula, right hand Removed due to steal syndrome GERD (gastroesophageal reflux disease) H/O: HTN (hypertension) Hearing loss History of kidney stones History of pneumonia Hx of hiatal hernia Hx of transient ischemic attack (TIA) Hypercholesteremia Hyperlipidemia Hypertension Hypothyroidism MDD (major depressive disorder) MRSA (methicillin resistant Staphylococcus aureus) Peripheral vascular disease PVD (peripheral vascular disease) Scarring of lung Seroma Thyroid nodule Surgical History Surgical History History of angioplasty History of carotid endarterectomy History of local excision of skin lesion History of repair of hiatal hernia History of vascular surgery Hx of cardiac cath Hx of heart artery stent Family History Family History Mother Family history of malignant neoplasm Family history of lung cancer, Onset Age: 65 Patient's mother is Tobacco abuse Sibling Family history of diabetes mellitus in first degree relative, Onset Age: 52 Family history of malignant neoplasm of kidney Patient's sister is Patient's brother is Father Pat
[2021-06-15 10:15] LABS: Alveolar/Arterial O2 Gradient 48.2 mmHg; Base Excess ABG 2.7 mEq/l (+/-2.0); Fractional Inspired Oxygen 21 %; HCO3 ABG 26.1 mEq/l (22.0-26.0); Oxygen Content ABG 14.7 %vol (16.0-22.0); Oxygen Saturation ABG 92.1 % (95.0-100.0); Oxyhemoglobin 89.1 % THb (90.0-100.0); PCO2 ABG 36.2 mmHg (35.0-45.0); PO2 ABG 58.2 mmHg (80.0-100.0); PO2 FiO2 Ratio Arterial Blood 2.77 %; Site Drawn LEFT BRACHIAL; Total Hemoglobin 11.7 g/dL (12.0-18.0); pH ABG 7.476 (7.350-7.450)
[2021-06-15 10:16] LABS: Device ROOM AIR
[2021-06-15 10:18] LABS: Basophils Percent Auto 0.2 % (0.2-1.2); Hematocrit 37.7 % (42.0-52.0); Hemoglobin 11.5 g/dL (14.0-18.0); Immature Granulocyte Absolute 0.17 K/mm3 (0.00-0.031); Immature Granulocyte Percent A 0.6 % (0-0.5); Lymphocytes Absolute Auto 0.65 K/mm3 (0.9-3.2); Lymphocytes Percent Auto 2.4 % (18.3-44.2); Mean Corpuscular HGB Conc 30.5 g/dl (32-36); Mean Corpuscular Hemoglobin 27.3 pg (26-34); Mean Corpuscular Volume 89.5 fl (80-100); Mean Platelet Volume 11.4 fl (7.4-10.4); Monocytes Absolute Auto 0.8 K/mm3 (0.1-0.6); Monocytes Percent Auto 3.1 % (2.6-8.5); Neutrophils Percent Auto 93.7 % (45.5-73.1); Platelet Count Result 327 k/mm3 (150-375); Red Blood Count 4.21 M/mm3 (4.6-6.20); Red Cell Distribution Width 18.3 % (11.5-14.5); White Blood Count 26.7 K/mm3 (4.5-10.0)
[2021-06-15 10:27] LABS: INR 1.5; Prothrombin Time 17.5 Seconds (11.1-14.7)
[2021-06-15 10:32] LABS: Anion Gap 13 mmol/L (8-16); Blood Urea Nitrogen 28 mg/dL (9-20); Calcium 8.3 mg/dL (8.4-10.2); Carbon Dioxide 26 mmol/L (22-30); Chloride 98 mmol/L (98-107); Estimated Glomerular Filt Rate 11; Glucose 93 mg/dL (65-110); Sodium 137 mmol/L (137-145)
[2021-06-15 10:33] LABS: Partial Thromboplastin Time 37.6 SECONDS (22.3-36.8)
[2021-06-15 10:44] LABS: NT Pro B Type Natriuretic Pept > 35000 pg/mL (5-100); Troponin I 0.033 ng/mL (0.000-0.034)
--- NOTE | 2021-06-15 11:17 | PM.CNNEP ---
Assessment and Plan Assessment and plan (1) End stage renal disease: Code(s): N18.6 - End stage renal disease Status: Chronic Assessment and Plan: The patient has end-stage renal disease. He is getting dialysis on Wednesdays and Fridays. He is due tomorrow. Volume status looks okay. Lung issues are related to pneumonia. (2) Pneumonia: Qualifiers: Laterality: unspecified laterality Lung location: unspecified part of lung Pneumonia type: due to unspecified organism Qualified Code(s): J18.9 - Pneumonia, unspecified organism Code(s): J18.9 - Pneumonia, unspecified organism Status: Acute Assessment and Plan: Patient has pneumonia. He is being placed on antibiotics and will get pulmonary toilet and supportive care. He is on oxygen. Question would be whether this was aspiration. (3) Hypertension: Code(s): I10 - Essential (primary) hypertension Status: Chronic Assessment and Plan: The patient has hypertension. His blood pressure is under good control. (4) A-fib: Code(s): I48.91 - Unspecified atrial fibrillation Status: Acute Assessment and Plan: He has atrial fibrillation. He has got a pacemaker in is fully paced right now. (5) CVA (cerebral vascular accident): Qualifiers: CVA mechanism: thrombosis Laterality of affected vessel: left Code(s): I63.9 - Cerebral infarction, unspecified Status: Acute Assessment and Plan: He has got right-sided weakness. 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 His hemoglobin is 11.5 History of Present Illness Reason for Consult Consult date: 06/15/21 Chief Complaint Chief complaint: SOB History of Present Illness Narrative: Garrett is a very pleasant gentleman with multiple medical problems including end-stage renal disease on hemodialysis 3 times a week, hypertension, diabetes, AFib, coronary disease, congestive heart failure, hyperlipidemia, hypertension, stroke, COPD, depression, hypothyroidism, who was just recently released from [facility] to a fdc facility. Today the patient became short of breath had posterior pharyngeal secretions so was brought over to the ER. They evaluated him here and found him to have pneumonia. He is being admitted and is going to be placed on some antibiotics. Patient cannot give a history. He is weak and barely nods his head yes and no just occasionally. He does not give an adequate review of systems. Review of Systems Review of Systems: ROS unobtainable: Yes unobtainable due to medical condition [facility] Past Medical History Medical History (Updated 06/15/21 @ 11:25 by Michael Downing MD) A-fib Adult BMI 26.0-26.9 kg/sq m Anemia Anemia, unspecified Benign prostatic hyperplasia without lower urinary tract symptoms BPH (benign prostatic hyperplasia) CAD (coronary artery disease) CHF (congestive heart failure) CKD (chronic kidney disease) Collar bone fracture COPD (chronic obstructive pulmonary disease) Coronary artery disease involving [place] artery of transplanted heart CVA (cerebral vascular accident) CVA (cerebral vascular accident) Depression Dialysis patient DM (diabetes mellitus) DVT (deep venous thrombosis) Erythropoietin deficiency anemia Fistula, right hand Removed due to steal syndrome GERD (gastroesophageal reflux disease) H/O: HTN (hypertension) Hearing loss History of kidney stones History of pneumonia Hx of hiatal hernia Hx of transient ischemic attack (TIA) Hypercholesteremia Hyperlipidemia Hypertension Hypothyroidism MDD (major depressive disorder) MRSA (methicillin resistant Staphyloco
[2021-06-15] MEDS: FUROSEMIDE INJ 40 MG/4 ML VIAL IV PUSH (11:45)
--- NOTE | 2021-06-15 13:45 | ADMGEN ---
This patient, Garrett Benson, was admitted to Medical Room 249-01. Patient/family oriented to hospital policies and general routines including ID bracelet, bed and alarms, visiting hours, pain management, procedures, bathroom and other care routines, personal items, smoking policy, room service/diet, and visiting hours. Information on how to activate the Rapid Response Team has been discussed. Patient/Family are encouraged to report perceived risks to care and to ask questions if they do not understand what they are told or what they should do.
--- NOTE | 2021-06-15 14:10 | PM.IMHP ---
H&P: HPI History of Present Illness Date/Time: 06/15/21 14:10 this is a 71-year-old male patient who has a past medical history of end-stage renal disease on dialysis Wednesday, atrial fibrillation, and CVA with right-sided weakness. The patient was brought into the emergency room today by ambulance from [facility] with chief complaint of shortness of breath and audible wheezes this morning. The patient was recently discharged on 06/12/2021 from this facility with urinary tract infection and generalized weakness. Today his white count was noted to be 26.7 with H&H of 11.5 and 37.7. Chest x-ray was read as development of moderate left, smaller right basilar pneumonia or edema. The patient's blood pressure was low and he was given bolus of a L of fluid. The patient was given IV Lasix and started on vancomycin, Zosyn and Levaquin. The patient is being admitted to inpatient services on 06/15/2021. Chief Complaint: Shortness of breath and cough Review of Systems Review of Systems: The patient has expressive aphasia but his is at the bedside and she is answering questions for him. [facility] Past Medical History Medical History (Updated 06/15/21 @ 14:28 by Yolande Castellanos NP) A-fib Adult BMI 26.0-26.9 kg/sq m Anemia Anemia, unspecified Benign prostatic hyperplasia without lower urinary tract symptoms BPH (benign prostatic hyperplasia) CAD (coronary artery disease) CHF (congestive heart failure) CKD (chronic kidney disease) Collar bone fracture COPD (chronic obstructive pulmonary disease) Coronary artery disease involving [place] artery of transplanted heart CVA (cerebral vascular accident) Depression Dialysis patient DM (diabetes mellitus) DVT (deep venous thrombosis) Erythropoietin deficiency anemia Fistula, right hand Removed due to steal syndrome GERD (gastroesophageal reflux disease) H/O: HTN (hypertension) Hearing loss History of kidney stones History of pneumonia Hx of hiatal hernia Hx of transient ischemic attack (TIA) Hypercholesteremia Hyperlipidemia Hypertension Hypothyroidism MDD (major depressive disorder) MRSA (methicillin resistant Staphylococcus aureus) Pacemaker Peripheral vascular disease PVD (peripheral vascular disease) Renal osteodystrophy Scarring of lung Seroma Thyroid nodule UTI (urinary tract infection) Vomiting Weakness generalized Surgical History Surgical History (Updated 06/15/21 @ 14:16 by Yolande Castellanos NP) History of angioplasty History of carotid endarterectomy History of local excision of skin lesion History of vascular surgery Hx of cardiac cath Hx of heart artery stent Family History Family History Mother Family history of malignant neoplasm Family history of lung cancer, Onset Age: 65 Patient's mother is Tobacco abuse Sibling Family history of diabetes mellitus in first degree relative, Onset Age: 52 Family history of malignant neoplasm of kidney Patient's sister is Patient's brother is Father Patient's father is Cerebral brain hemorrhage Sibling Patient's brother is Diabetes mellitus Other Family history of coronary artery disease Social History Social History (Updated 06/15/21 @ 14:17 by Yolande Castellanos NP) Social History: The patient typically lives lives at home with his and she is his caregiver. The patient is now a DNR. The patient is now rehabbing at [facility]. He has 1 daughter and now smokes 4 cigarettes a day. No alcohol. The patient is retired. No marijuana or illicit drugs. Smoking status: Current every day smoker Tobacco type: cigarettes Second hand tobacco smoke exposure: No Alcohol intake: never Substance use: never Substance use type: does not use Additional occupation/education comments: [employer] Gender
[2021-06-15] MEDS: APIXABAN 2.5 MG TABLET PO (17:21)
[2021-06-15] MEDS: SEVELAMER CARBONATE 800 MG TABLET PO (17:21)
[2021-06-15] MEDS: levETIRAcetam 250 MG TABLET 750 MG PO (17:22)
[2021-06-15] MEDS: PANTOPRAZOLE 40 MG TABLET PO (17:22)
[2021-06-15 17:34] LABS: Glucose Point of Care 134 mg/dl (65-105)
[2021-06-15] MEDS: ATORVASTATIN 40 MG TABLET 80 MG PO (21:52)
[2021-06-15] MEDS: METOPROLOL TARTRATE 25 MG TABLET PO (21:52)
[2021-06-15] MEDS: GABAPENTIN 300 MG CAPSULE PO (21:52)
[2021-06-15] MEDS: diphenhydrAMINE HCl CAP 25 MG CAPSULE PO (21:52)
[2021-06-15] MEDS: ACETAMINOPHEN 500 MG TABLET PO (21:53)
[2021-06-15] MEDS: CLOPIDOGREL BISULFATE 75 MG TABLET PO (21:54)
[2021-06-15] MEDS: IPRATROPIUM BR 0.02% INH SOLN 0.5 MG/2.5 ML VIAL INHALATION (22:40)
[2021-06-15] MEDS: ALBUTEROL SULFATE NEB 2.5 MG/0.5 ML INH INHALATION (22:40)
[2021-06-15 22:48] LABS: Glucose Point of Care 178 mg/dl (65-105)
[2021-06-16] VITALS (30 sets, daily range): BP systolic 140–170; BP diastolic 36–80; PULSE 58–89; RESP 16–22; TEMP 36.1–37.2; O2SAT 93–100; BMI 25.2
[2021-06-16] MEDS: IPRATROPIUM BR 0.02% INH SOLN 0.5 MG/2.5 ML VIAL INHALATION ×4 (02:38→20:15)
[2021-06-16] MEDS: ALBUTEROL SULFATE NEB 2.5 MG/0.5 ML INH INHALATION ×4 (02:38→20:15)
[2021-06-16 05:53] LABS: Basophils Percent Auto 0.2 % (0.2-1.2); Eosinophils Absolute Auto 0.1 K/mm3 (0-0.3); Hematocrit 31.2 % (42.0-52.0); Hemoglobin 9.4 g/dL (14.0-18.0); Immature Granulocyte Absolute 0.06 K/mm3 (0.00-0.031); Immature Granulocyte Percent A 0.5 % (0-0.5); Mean Corpuscular HGB Conc 30.1 g/dl (32-36); Mean Corpuscular Hemoglobin 26.6 pg (26-34); Mean Corpuscular Volume 88.4 fl (80-100); Mean Platelet Volume 10.9 fl (7.4-10.4); Monocytes Absolute Auto 0.9 K/mm3 (0.1-0.6); Monocytes Percent Auto 6.9 % (2.6-8.5); Neutrophils Absolute Auto 10.4 K/mm3 (1.3-6.7); Neutrophils Percent Auto 83.4 % (45.5-73.1); Platelet Count Result 250 k/mm3 (150-375); Red Blood Count 3.53 M/mm3 (4.6-6.20); Red Cell Distribution Width 17.9 % (11.5-14.5); White Blood Count 12.4 K/mm3 (4.5-10.0)
[2021-06-16 06:04] LABS: Lactic Acid Reflex 1.2 mmol/L (0.7-2.1)
[2021-06-16 06:08] LABS: Albumin Level 2.9 g/dL (3.5-5.1); Anion Gap 12 mmol/L (8-16); Blood Urea Nitrogen 35 mg/dL (9-20); Calcium 7.9 mg/dL (8.4-10.2); Carbon Dioxide 26 mmol/L (22-30); Chloride 97 mmol/L (98-107); Estimated CRCL calculation 12 ml/min; Estimated Glomerular Filt Rate 10; Glucose 130 mg/dL (65-110); Magnesium 1.9 mg/dL (1.6-2.3); Phosphorus 5.7 mg/dL (2.5-4.5); Potassium 3.8 mmol/L (3.4-5.0); Sodium 135 mmol/L (137-145)
[2021-06-16 06:56] LABS: Hepatitis B Surface Antigen Negative (Negative)
[2021-06-16 07:01] LABS: HAV RESULT Negative (Negative); Hepatitis B Core IgM Result Negative (Negative)
[2021-06-16 07:13] LABS: Hepatitis B Surface Anti Res Negative; Hepatitis C Virus Antibody Negative (Negative)
[2021-06-16 07:30] LABS: Glucose Point of Care 112 mg/dl (65-105)
--- NOTE | 2021-06-16 09:01 | PM.CNPUL ---
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 He had a modified barium swallow with trace laryngeal penetration with thin liquids on 06/06/2021. I do notice that he has a well-healed PEG tube insertion site in his left upper quadrant. I do believe the patient is aspirating and with his leukocytosis and bibasilar infiltrates I agree with treatment for healthcare associated aspiration pneumonia with vancomycin, Zosyn and Levaquin pending blood cultures. Patient does appear to be responding as his white blood cell count has improved to 12.4K today. Once cultures negative would change to levaquin and finish a 7 day course. Patient is on a scopolamine patch to help with his copious oral secretions. I would continue this currently. I would recommend having speech therapy re-evaluate the patient to see if there are any physical maneuvers to minimize subsequent aspiration events. While in the hospital we could also attempt to use a Yankauer aspiration device to remove secretions from his posterior oropharynx. Aspiration with a poor cough post stroke will leave him susceptible to further aspiration events. It should be noted that even placement of a PEG to will not solve the problem as he can still have recurrent aspiration events from his oral secretions so I usually hold off on a PEG unless they are having greater than 3 aspiration events requiring hospitalization in a year. Discussed with Rizwan Wray. Will sign off, call with any questions. History of Present Illness History of Present Illness Consult date: 06/16/21 Requesting physician: Yolande Castellanos NP Reason for consult: pneumonia Chief complaint: Healthcare acquired pneumonia Narrative: 71-year-old male with a history of end-stage renal disease, diabetes, tobacco use, CVA with right hemiparesis and nonverbal presented on 06/15/2021 with presumed aspiration pneumonia. Patient presented with shortness of breath from [facility] with a white blood cell count of 26.7, a room air blood gas of 7.48/36/58. His chest x-ray demonstrated a permanent pacemaker and a right IJ tunneled catheter with bibasilar interstitial infiltrates that had increased from 06/05/2021. Patient was treated for presumed aspiration pneumonia with vanc, Zosyn and Levaquin. Patient was noted to have wheezing and upper airway congestion. Patient initially had room air saturations of 95%. Of note patient had a modified barium swallow on 06/06/2021 with the impression reading trace laryngeal penetration with thin liquids. 06/16/21 Patient is nonverbal laying in bed with a right hemiparesis. Patient does not follow commands and shakes his head yes and no randomly. When asked the patient to cough he did not cough. When I asked the patient to raise 2 fingers with his left hand he did raise his hand but did not show 2 fingers. Likewise when I asked him to give a thumbs-up he did raise his left hand but did not reproduce a thumbs up sign. Patient did move his left lower extremity when I asked him to wiggle his left toes. Throughout my interview process patient did have coughing episodes that were weak and did not clear secretions. Today patient's white blood cell count is 12.4. Blood cultures are negative. His on 2 L nasal cannula saturations 100%. Review of Systems Review of Systems: unable to verbalize [facility] Past Medical History Medical History (Updated 06/15/21 @ 14:28 by Yolande Castellanos NP)
[2021-06-16] MEDS: INSULIN GLARGINE (*BKC) 100 UNITS/ML 20 UNITS SUB-Q (10:31)
--- NOTE | 2021-06-16 11:24 | PM.IMPN ---
Progress Note: A&P Assessment and Plan (1) Pneumonia: Qualifiers: Laterality: unspecified laterality Lung location: unspecified part of lung Pneumonia type: due to unspecified organism Qualified Code(s): J18.9 - Pneumonia, unspecified organism Code(s): J18.9 - Pneumonia, unspecified organism Status: Acute Assessment and Plan: Suspect aspiration Follow BC and sputum cultures Continue Zosyn, vancomycin, and Levaquin, deescalate as needed Scheduled nebs Pulmonary following, recommendations apprecaited Recently swallow study which shows that he could be upgraded from honey thickened liquids to nectar No aspiration was seen at that time Consult speech therapy (2) DM (diabetes mellitus): Code(s): E11.9 - Type 2 diabetes mellitus without complications Status: Chronic Assessment and Plan: Accu-Cheks AC and HS SSI Continue with long-acting insulin Monitor (3) Hemodialysis patient: Code(s): Z99.2 - Dependence on renal dialysis Status: Acute Assessment and Plan: HD MWF Nephrology consulted Temporary catheter to his right upper chest, did have an AV fistula which had to be removed due to steal syndrome Continue with sevelamer (4) A-fib: Code(s): I48.91 - Unspecified atrial fibrillation Status: Acute Assessment and Plan: S/p pacemaker Continue apixaban and metoprolol Tele monitoring (5) Hyperlipidemia: Code(s): E78.5 - Hyperlipidemia, unspecified Status: Chronic Assessment and Plan: Continue with atorvastatin (6) Hypertension: Code(s): I10 - Essential (primary) hypertension Status: Chronic Assessment and Plan: Controlled Continue with metoprolol Monito r (7) Tobacco abuse: Code(s): Z72.0 - Tobacco use Status: Acute Assessment and Plan: was counseled on smoking cessation She reported pt smokes about 4 cigarettes a day (8) Seizure: Code(s): R56.9 - Unspecified convulsions Status: Acute Assessment and Plan: Continue with Keppra (9) CVA (cerebral vascular accident): Qualifiers: CVA mechanism: thrombosis Laterality of affected vessel: left Code(s): I63.9 - Cerebral infarction, unspecified Status: Acute Assessment and Plan: Continue with patient's Plavix, statin Subjective Date/time seen: 06/16/21 11:24 Interval history: pt seen and evaluated; cooperative; non verbal; nursing staff reported no acute events overnight Review of Systems Review of Systems: ROS unobtainable: Yes unobtainable due to mental status Exam Const: General: cooperative, no acute distress, alert and awake Eyes: Conjunctivae: conjunctivae normal Neck: Neck: no JVD Resp: Auscultation: breath sounds absent and other (gurguling upper airways) Cardio: Heart sounds: S1 normal heart sound present, S2 normal heart sound present and Other heart sounds present (pacemaker) Peripheral pulses: Peripheral pulses 2+ throughout GI: GI Palp: Yes Soft to palpation Auscultation: normal bowel sounds Skin: Trauma: other (right heel pressure ulcer; buttock with peeling skin) Wounds: wounds noted Neuro: General: other (right sided hemiparesis ) Cranial nerves: Yes Bilaterally intact EOM present and Yes Nystagmus not present Speech: aphasia Extrem: General: other (right sided hemeparesis) Right upper extremity: edema Objective Data Vital Signs Vital Signs: Vital Signs - 24 hr 06/15/21 12:55 06/15/21 14:05 06/15/21 14:30 Temperature 36.8 C Pulse Rate 73 70 Respiratory Rate 16 16 28 H Blood Pressure 108/47 L 122/44 L Pulse Oximetry 98 98 99 06/15/21 19:46 06/15/21 21:00 06/15/21 21:52 Temperature 36.2 C L Pulse Rate 67 68 Respiratory Rate 18 Blood Pressure 151/45 H Pulse Oximetry 100 99 06/15/21 22:40 06/15/21 22:52 06/16/21 02:38 Temperature Pulse Rate 79 82 84 Respiratory Rate 20 20 20 Blood Pressure
--- NOTE | 2021-06-16 11:32 | PM.PNNEP ---
Progress Note: A&P Assessment and Plan (1) End stage renal disease: Code(s): N18.6 - End stage renal disease Status: Chronic Assessment and Plan: HD today and continue M/W/F schedule while hospitalized follow electrolytes, volume status, and clearance (2) Pneumonia: Qualifiers: Laterality: unspecified laterality Lung location: unspecified part of lung Pneumonia type: due to unspecified organism Qualified Code(s): J18.9 - Pneumonia, unspecified organism Code(s): J18.9 - Pneumonia, unspecified organism Status: Acute Assessment and Plan: as evidenced by imaging on admission on antibiotics continues supplemental oxygen and pulmonary toliet concern that there may be a component of aspiration (3) Hypertension: Code(s): I10 - Essential (primary) hypertension Status: Chronic Assessment and Plan: reasonable control at this time follow trend of hemodynamics (4) A-fib: Code(s): I48.91 - Unspecified atrial fibrillation Status: Acute Assessment and Plan: paced (pacemaker in place) on anticoagulation (5) Anemia: Code(s): D64.9 - Anemia, unspecified Status: Chronic Assessment and Plan: due to ESRD along with acute illness Epogen with HD follow trend of H/H (6) CVA (cerebral vascular accident): Qualifiers: CVA mechanism: thrombosis Laterality of affected vessel: left Code(s): I63.9 - Cerebral infarction, unspecified Status: Acute Assessment and Plan: chronic issue right sided weakness noted Will continue to follow. Subjective Date/time seen: 06/16/21 11:32 Patient tolerating hemodialysis treatment at the time of my visit (seen on HD at ~ 11:20AM); no apparent distress noted; no issues/events overnight or earlier this AM. Exam Narrative: General: ill-appearing male in NAD Heart: IRRR, normal S1 and S2; no rub Lungs: upper airway noise (gurgling) noted Abdomen: soft, nontender, nondistended, positive bowel sounds Extremities: no cyanosis or clubbing; no edema Skin: warm and dry Objective Data Vital Signs Vital Signs: Vital Signs Temp Pulse Resp BP Pulse Ox 06/16/21 09:58 85 20 06/16/21 09:42 72 20 93 06/16/21 08:00 36.1 C L 70 18 144/46 H 100 06/16/21 03:51 36.4 C 70 17 144/42 H 99 06/16/21 02:48 89 20 06/16/21 02:38 84 20 06/15/21 22:52 82 20 06/15/21 22:40 79 20 06/15/21 21:52 68 06/15/21 21:00 99 06/15/21 19:46 36.2 C L 67 18 151/45 H 100 06/15/21 14:30 36.8 C 70 28 H 122/44 L 99 06/15/21 14:05 16 98 06/15/21 12:55 73 16 108/47 L 98 Intake/Output Intake/Output: Intake & Output 06/13/21 06/14/21 06/15/21 06/16/21 23:59 23:59 23:59 23:59 Intake Total 750 220 Balance 750 220 Meds/Results Medications: Active Medications Generic Name Dose Route Start Last Admin Trade Name Mitchq PRN Reason Stop Dose Admin Acetaminophen 500 mg 06/15/21 21:00 06/15/21 21:53 Acetaminophen 500 Mg Tablet PO 07/15/21 20:59 500 mg HS SPIKE Administration Albuterol 2.5 mg 06/15/21 20:00 06/16/21 09:42 Albuterol Sulfate Neb 2.5 Mg/0.5 Ml Inh INHALATION 2.5 mg Q6HRT SPIKE Administration Apixaban 2.5 mg 06/15/21 17:00 06/15/21 17:21 Apixaban 2.5 Mg Tablet PO 2.5 mg BID SPIKE Administration Atorvastatin Calcium 80 mg 06/15/21 21:00 06/15/21 21:52 Atorvastatin 40 Mg Tablet PO 80 mg HS SPIKE Administration Atropine Sulfate 1 drop 06/15/21 16:30 Atropine Sulfate 1% Ophth Soln 5 Ml Bottle SUBLINGUAL Q4H PRN Secretions Clopidogrel Bisulfate 75 mg 06/15/21 21:00 06/15/21 21:54 Clopidogrel Bisulfate 75 Mg Tablet PO 75 mg HS SPIKE Administration Cyanocobalamin 250 mcg 06/16/21 09:00 Cyanocobalamin 250 Mcg Tablet PO DAILY SPIKE Dextrose 12.5 gm 06/15/21 14:25 Dextrose 50% 25 Gm/5
--- NOTE | 2021-06-16 12:37 | PCSTNOTE ---
Evaluations were not completed today due to being in dialysis when orders received. Will attempt either later today or tomorrow. Jaclyn, Hospitalist, aware of scheduling issue.
[2021-06-16] MEDS: FLUoxetine HCL 20 MG CAPSULE 40 MG PO (14:51)
[2021-06-16] MEDS: levETIRAcetam 250 MG TABLET 750 MG PO ×2 (14:52→20:41)
[2021-06-16] MEDS: PANTOPRAZOLE 40 MG TABLET PO ×2 (14:53→20:42)
[2021-06-16] MEDS: METOPROLOL TARTRATE 25 MG TABLET PO ×2 (14:53→20:42)
[2021-06-16] MEDS: CYANOCOBALAMIN 250 MCG TABLET PO (14:53)
[2021-06-16] MEDS: SEVELAMER CARBONATE 800 MG TABLET PO (14:54)
[2021-06-16] MEDS: APIXABAN 2.5 MG TABLET PO (14:54)
[2021-06-16] MEDS: VITAMIN B CMPLX/VIT C/FOLIC AC 1 CAPSULE 1 CAP BY MOUTH (14:54)
[2021-06-16 15:19] LABS: Glucose Point of Care 122 mg/dl (65-105)
[2021-06-16] MEDS: SCOPOLAMINE 1.5 MG PATCH TRANSDERM (20:39)
[2021-06-16] MEDS: diphenhydrAMINE HCl CAP 25 MG CAPSULE PO (20:41)
[2021-06-16] MEDS: ATORVASTATIN 40 MG TABLET 80 MG PO (20:42)
[2021-06-16] MEDS: GABAPENTIN 300 MG CAPSULE PO (20:42)
[2021-06-16] MEDS: CLOPIDOGREL BISULFATE 75 MG TABLET PO (20:42)
[2021-06-16] MEDS: ACETAMINOPHEN 500 MG TABLET PO (20:42)
[2021-06-16] MEDS: levoFLOXacin 500 MG/D5W 100 ML 500 MG/100 ML BAG 66.67 MG IVPB (20:54)
[2021-06-16 20:56] LABS: Vancomycin Random 18.1 ug/mL (10-20)
[2021-06-17] VITALS (16 sets, daily range): BP systolic 132–152; BP diastolic 39–62; PULSE 67–100; RESP 16–20; TEMP 36.1–36.7; O2SAT 93–100
[2021-06-17 00:29] LABS: Glucose Point of Care 175 mg/dl (65-105)
[2021-06-17] MEDS: ALBUTEROL SULFATE NEB 2.5 MG/0.5 ML INH INHALATION ×4 (01:46→21:06)
[2021-06-17] MEDS: IPRATROPIUM BR 0.02% INH SOLN 0.5 MG/2.5 ML VIAL INHALATION ×4 (01:47→21:06)
[2021-06-17 06:12] LABS: Estimated CRCL calculation 18 ml/min; Estimated Glomerular Filt Rate 16
[2021-06-17 06:55] LABS: Glucose Point of Care 181 mg/dl (65-105)
[2021-06-17] MEDS: INSULIN GLARGINE (*BKC) 100 UNITS/ML 20 UNITS SUB-Q (08:12)
[2021-06-17] MEDS: FLUoxetine HCL 20 MG CAPSULE 40 MG PO (08:56)
[2021-06-17] MEDS: PANTOPRAZOLE 40 MG TABLET PO ×2 (08:56→17:05)
[2021-06-17] MEDS: APIXABAN 2.5 MG TABLET PO ×2 (08:57→17:06)
[2021-06-17] MEDS: levETIRAcetam 250 MG TABLET 750 MG PO ×2 (08:57→17:05)
[2021-06-17] MEDS: CYANOCOBALAMIN 250 MCG TABLET PO (08:58)
[2021-06-17] MEDS: METOPROLOL TARTRATE 25 MG TABLET PO ×2 (08:58→21:14)
[2021-06-17] MEDS: VITAMIN B CMPLX/VIT C/FOLIC AC 1 CAPSULE 1 CAP BY MOUTH (08:58)
[2021-06-17] MEDS: SEVELAMER CARBONATE 800 MG TABLET PO ×3 (08:58→17:05)
--- NOTE | 2021-06-17 09:51 | PM.PNNEP ---
Progress Note: A&P Assessment and Plan (1) End stage renal disease: Code(s): N18.6 - End stage renal disease Status: Chronic Assessment and Plan: HD tomorrow and continue M/W/F schedule while hospitalized follow electrolytes, volume status, and clearance (2) Pneumonia: Qualifiers: Laterality: unspecified laterality Lung location: unspecified part of lung Pneumonia type: due to unspecified organism Qualified Code(s): J18.9 - Pneumonia, unspecified organism Code(s): J18.9 - Pneumonia, unspecified organism Status: Acute Assessment and Plan: as evidenced by imaging on admission on antibiotics continues supplemental oxygen and pulmonary toliet concern that there may be a component of aspiration (3) Hypertension: Code(s): I10 - Essential (primary) hypertension Status: Chronic Assessment and Plan: reasonable control at this time follow trend of hemodynamics (4) A-fib: Code(s): I48.91 - Unspecified atrial fibrillation Status: Acute Assessment and Plan: paced (pacemaker in place) on anticoagulation (5) Anemia: Code(s): D64.9 - Anemia, unspecified Status: Chronic Assessment and Plan: due to ESRD along with acute illness Epogen with HD follow trend of H/H (6) CVA (cerebral vascular accident): Qualifiers: CVA mechanism: thrombosis Laterality of affected vessel: left Code(s): I63.9 - Cerebral infarction, unspecified Status: Acute Assessment and Plan: chronic issue right sided weakness noted Will continue to follow. Subjective Date/time seen: 06/17/21 09:51 No apparent distress voiced at this time although history is limited by his aphasia/CVA; tolerated dialysis yesterday without any issues or problems; no apparent distress noted; no issues/events overnight or earlier this AM per nursing. Exam Narrative: General: ill-appearing male in NAD Heart: IRRR, normal S1 and S2; no rub Lungs: upper airway noise (gurgling) present - no change noted Abdomen: soft, nontender, nondistended, positive bowel sounds Extremities: no cyanosis or clubbing; no edema Skin: warm and intact Objective Data Vital Signs Vital Signs: Vital Signs Temp Pulse Resp BP Pulse Ox 06/17/21 08:34 68 20 06/17/21 08:16 70 20 100 06/17/21 08:00 36.1 C L 70 17 152/43 H 100 06/17/21 05:21 36.2 C L 69 16 142/42 H 100 06/17/21 01:56 69 16 06/17/21 01:50 71 20 99 06/16/21 21:56 36.9 C 70 16 144/36 H 100 06/16/21 21:00 100 06/16/21 20:42 68 06/16/21 20:21 70 16 06/16/21 20:16 69 20 95 06/16/21 16:18 84 20 06/16/21 16:04 86 20 06/16/21 16:00 36.1 C L 72 18 140/48 L 100 06/16/21 14:30 36.6 C 74 21 H 151/80 H 06/16/21 14:21 58 L 141/68 H 06/16/21 13:45 69 142/62 H 06/16/21 13:30 69 161/75 H 06/16/21 13:15 73 157/67 H 06/16/21 13:00 73 153/59 H 06/16/21 12:45 71 142/46 H 06/16/21 12:30 72 152/74 H 06/16/21 12:15 72 145/71 H 06/16/21 12:00 72 170/49 H 06/16/21 11:45 73 148/64 H 06/16/21 11:30 69 153/72 H 06/16/21 11:15 72 159/68 H 06/16/21 11:00 70 151/66 H Intake/Output Intake/Output: Intake & Output 06/14/21 06/15/21 06/16/21 06/17/21 23:59 23:59 23:59 23:59 Intake Total 750 610 300 Output Total 2000 Balance 750 -1390 300 Meds/Results Medications: Active Medications Generic Name Dose Route Start Last Admin Trade Name Kandis PRN Reason Stop Dose Admin Acetaminophen 500 mg 06/15/21 21:00 06/16/21 20:42 Acetaminophen 500 Mg Tablet PO 07/15/21 20:59 500 mg HS SPIKE Administration Albuterol 2.5 mg 06/15/21 20:00 06/17/21 08:14 Albuterol Sulfate Neb 2.5 Mg/0.5 Ml Inh INHALATION 2.5 mg Q6HRT SPIKE Administration Apixaban 2.5 mg 06/15/21 17:00 06/17/21 08:57 Apixab
[2021-06-17 13:04] LABS: Glucose Point of Care 191 mg/dl (65-105)
--- NOTE | 2021-06-17 15:27 | PC.NURSE ---
On 06/17/21, the student, Marisela Spann, provided care and completed [facility] documentation on this patient. I have reviewed the student's documentation and agree with the findings.
--- NOTE | 2021-06-17 15:45 | PM.IMPN ---
Progress Note: A&P Assessment and Plan (1) Acute respiratory failure with hypoxia: Code(s): J96.01 - Acute respiratory failure with hypoxia Status: Acute Assessment and Plan: Patient presented from SNF facility with acute respiratory failure with hypoxemia after being discharged from the hospital 3 days prior. Could be secondary to aspiration pneumonia versus fluid overload due to missing dialysis for 3 days Patient received dialysis yesterday on arrival and he has been started on broad-spectrum IV antibiotics Pulmonary has seen him and made adjustments to his antibiotic regimen. I talked to Dr. Christian today who agrees with plan for IV Zosyn for aspiration. Then possibly Augmentin upon discharge. Continue monitoring. (2) Sepsis: Code(s): A41.9 - Sepsis, unspecified organism Status: Acute Assessment and Plan: Patient met criteria for sepsis with leukocytosis, hypoxia, increased respiratory rate. Continue monitoring vitals. IV antibiotics for aspiration pneumonia Blood cultures negative to date at this time\ Continue monitoring. (3) Pneumonia: Qualifiers: Laterality: unspecified laterality Lung location: unspecified part of lung Pneumonia type: due to unspecified organism Qualified Code(s): J18.9 - Pneumonia, unspecified organism Code(s): J18.9 - Pneumonia, unspecified organism Status: Acute Assessment and Plan: Suspect aspiration Continue Zosyn-we deescalated antibiotics and discontinued vancomycin, and Levaquin Scheduled nebs Pulmonary evaluated the patient made recommendations to continue aspiration pneumonia with IV antibiotics and switch to Augmentin p.o. upon discharge Speech therapy evaluated him today and stated he did well recommends mildly thickened liquid and soft and bite size diet Aspiration precautions in at this time Continue monitoring. (4) DM (diabetes mellitus): Code(s): E11.9 - Type 2 diabetes mellitus without complications Status: Chronic Assessment and Plan: Accu-Cheks AC and HS SSI Continue with long-acting insulin Monitor (5) Hemodialysis patient: Code(s): Z99.2 - Dependence on renal dialysis Status: Acute Assessment and Plan: HD MWF Nephrology consulted Temporary catheter to his right upper chest, did have an AV fistula which had to be removed due to steal syndrome Continue with sevelamer (6) A-fib: Code(s): I48.91 - Unspecified atrial fibrillation Status: Acute Assessment and Plan: S/p pacemaker Continue apixaban and metoprolol (7) Hyperlipidemia: Code(s): E78.5 - Hyperlipidemia, unspecified Status: Chronic Assessment and Plan: Continue with atorvastatin (8) Hypertension: Code(s): I10 - Essential (primary) hypertension Status: Chronic Assessment and Plan: Controlled Continue with metoprolol Monitor (9) Tobacco abuse: Code(s): Z72.0 - Tobacco use Status: Acute Assessment and Plan: was counseled on smoking cessation She reported pt smokes about 4 cigarettes a day (10) Seizure: Code(s): R56.9 - Unspecified convulsions Status: Acute Assessment and Plan: Continue with Keppra (11) CVA (cerebral vascular accident): Qualifiers: CVA mechanism: thrombosis Laterality of affected vessel: left Code(s): I63.9 - Cerebral infarction, unspecified Status: Acute Assessment and Plan: Continue with patient's Plavix, statin Time Spent With Patient Time with patient: 25 - 35 minutes Subjective Date/time seen: 06/17/21 15:45 Interval history: Date of Service 06/17/21: Poor historian secondary to chronic CVA. at bedside for history. States he missed dialysis when transferred to SNF in believes he became fluid overloaded. She has noticed that his right a
[2021-06-17 16:21] LABS: Add Urine Microscopic? YES; Appearance Urine Turbid (Clear); Bilirubin Urine Negative (Negative); Blood Urine 2+ (Negative); Glucose Urine UA 1+ mg/dL (Negative); Ketones Urine Negative (Negative); Leukocyte Esterase Ur 1+ LEU/UL (Negative); Nitrate Urine Negative (Negative); Protein Urine 2+ mg/dL (Negative); Urobilinogen Urine Negative mg/dL (<2.0); WBC Clumps Urine Present /HPF
[2021-06-17 16:26] LABS: Bacteria Urine 1+ /hpf; RBC Urine 0-2 /hpf (0-2); WBC Urine 16-20 /hpf
[2021-06-17 16:27] LABS: Color Urine Brown (Yellow)
[2021-06-17 17:22] LABS: Glucose Point of Care 191 mg/dl (65-105)
[2021-06-17] MEDS: SCOPOLAMINE 1.5 MG PATCH TRANSDERM (21:12)
[2021-06-17] MEDS: ACETAMINOPHEN 500 MG TABLET PO (21:14)
[2021-06-17] MEDS: GABAPENTIN 300 MG CAPSULE PO (21:14)
[2021-06-17] MEDS: CLOPIDOGREL BISULFATE 75 MG TABLET PO (21:14)
[2021-06-17] MEDS: ATORVASTATIN 40 MG TABLET 80 MG PO (21:15)
[2021-06-17] MEDS: diphenhydrAMINE HCl CAP 25 MG CAPSULE PO (21:15)
[2021-06-17 21:51] LABS: Glucose Point of Care 183 mg/dl (65-105)
[2021-06-18] VITALS (30 sets, daily range): BP systolic 121–157; BP diastolic 39–91; PULSE 59–74; RESP 16–20; TEMP 36.1–37; O2SAT 96–100; BMI 11.0
[2021-06-18] MEDS: IPRATROPIUM BR 0.02% INH SOLN 0.5 MG/2.5 ML VIAL INHALATION ×3 (04:59→14:35)
[2021-06-18] MEDS: ALBUTEROL SULFATE NEB 2.5 MG/0.5 ML INH INHALATION ×3 (04:59→14:35)
[2021-06-18 05:32] LABS: Basophils Percent Auto 0.4 % (0.2-1.2); Eosinophils Absolute Auto 0.2 K/mm3 (0-0.3); Hematocrit 29.4 % (42.0-52.0); Hemoglobin 9.3 g/dL (14.0-18.0); Immature Granulocyte Absolute 0.02 K/mm3 (0.00-0.031); Immature Granulocyte Percent A 0.3 % (0-0.5); Lymphocytes Absolute Auto 0.96 K/mm3 (0.9-3.2); Lymphocytes Percent Auto 12.9 % (18.3-44.2); Mean Corpuscular HGB Conc 31.6 g/dl (32-36); Mean Corpuscular Hemoglobin 28.3 pg (26-34); Mean Corpuscular Volume 89.4 fl (80-100); Mean Platelet Volume 10.8 fl (7.4-10.4); Monocytes Absolute Auto 0.6 K/mm3 (0.1-0.6); Monocytes Percent Auto 8.6 % (2.6-8.5); Neutrophils Absolute Auto 5.7 K/mm3 (1.3-6.7); Neutrophils Percent Auto 75.8 % (45.5-73.1); Platelet Count Result 252 k/mm3 (150-375); Red Blood Count 3.29 M/mm3 (4.6-6.20); Red Cell Distribution Width 17.8 % (11.5-14.5); White Blood Count 7.5 K/mm3 (4.5-10.0)
[2021-06-18 05:54] LABS: Albumin Level 2.7 g/dL (3.5-5.1); Anion Gap 8 mmol/L (8-16); Blood Urea Nitrogen 31 mg/dL (9-20); Calcium 7.9 mg/dL (8.4-10.2); Carbon Dioxide 30 mmol/L (22-30); Chloride 97 mmol/L (98-107); Estimated CRCL calculation 13 ml/min; Estimated Glomerular Filt Rate 11; Glucose 118 mg/dL (65-110); Phosphorus 4.6 mg/dL (2.5-4.5); Potassium 4.1 mmol/L (3.4-5.0); Sodium 135 mmol/L (137-145)
[2021-06-18 06:55] LABS: Glucose Point of Care 110 mg/dl (65-105)
[2021-06-18] MEDS: INSULIN GLARGINE (*BKC) 100 UNITS/ML 20 UNITS SUB-Q (09:02)
[2021-06-18] MEDS: CYANOCOBALAMIN 250 MCG TABLET PO (09:05)
[2021-06-18] MEDS: VITAMIN B CMPLX/VIT C/FOLIC AC 1 CAPSULE 1 CAP BY MOUTH (09:05)
[2021-06-18] MEDS: FLUoxetine HCL 20 MG CAPSULE 40 MG PO (09:05)
[2021-06-18] MEDS: APIXABAN 2.5 MG TABLET PO ×2 (09:06→20:23)
[2021-06-18] MEDS: METOPROLOL TARTRATE 25 MG TABLET PO ×2 (09:06→20:22)
[2021-06-18] MEDS: levETIRAcetam 250 MG TABLET 750 MG PO ×2 (09:06→20:22)
[2021-06-18] MEDS: PANTOPRAZOLE 40 MG TABLET PO ×2 (09:06→20:23)
[2021-06-18] MEDS: FOLIC ACID 0.4 MG TABLET PO ×3 (09:06→20:22)
[2021-06-18] MEDS: SEVELAMER CARBONATE 800 MG TABLET PO ×3 (09:07→20:22)
[2021-06-18 12:11] LABS: Glucose Point of Care 347 mg/dl (65-105)
--- NOTE | 2021-06-18 12:27 | PM.IMPN ---
Progress Note: A&P Assessment and Plan (1) Acute respiratory failure with hypoxia: Code(s): J96.01 - Acute respiratory failure with hypoxia Status: Acute Assessment and Plan: Patient presented from SNF facility with acute respiratory failure with hypoxemia after being discharged from the hospital 3 days prior. Could be secondary to aspiration pneumonia versus fluid overload due to missing dialysis for 3 days Patient received dialysis on arrival and he has been started on broad-spectrum IV antibiotics (#3) Pulmonary has seen him and made adjustments to his antibiotic regimen. I talked to Dr. Christian today who agrees with plan for IV Zosyn for aspiration. Then possibly Augmentin upon discharge. Continue monitoring. (2) Sepsis: Code(s): A41.9 - Sepsis, unspecified organism Status: Acute Assessment and Plan: Patient met criteria for sepsis with leukocytosis, hypoxia, increased respiratory rate. Continue monitoring vitals. IV antibiotics for aspiration pneumonia Blood cultures negative to date at this time Continue monitoring. (3) Pneumonia: Qualifiers: Laterality: unspecified laterality Lung location: unspecified part of lung Pneumonia type: due to unspecified organism Qualified Code(s): J18.9 - Pneumonia, unspecified organism Code(s): J18.9 - Pneumonia, unspecified organism Status: Acute Assessment and Plan: Suspect aspiration Continue Zosyn-we deescalated antibiotics and discontinued vancomycin, and Levaquin Scheduled nebs Pulmonary evaluated the patient made recommendations to continue aspiration pneumonia with IV antibiotics and switch to Augmentin p.o. upon discharge Speech therapy evaluated him today and stated he did well recommends mildly thickened liquid and soft and bite size diet Aspiration precautions in at this time Continue monitoring. (4) DM (diabetes mellitus): Code(s): E11.9 - Type 2 diabetes mellitus without complications Status: Chronic Assessment and Plan: Accu-Cheks AC and HS SSI Continue with long-acting insulin Monitor (5) Hemodialysis patient: Code(s): Z99.2 - Dependence on renal dialysis Status: Acute Assessment and Plan: HD MWF Nephrology consulted Temporary catheter to his right upper chest, did have an AV fistula which had to be removed due to steal syndrome Continue with sevelamer (6) A-fib: Code(s): I48.91 - Unspecified atrial fibrillation Status: Acute Assessment and Plan: S/p pacemaker Continue apixaban and metoprolol (7) Hyperlipidemia: Code(s): E78.5 - Hyperlipidemia, unspecified Status: Chronic Assessment and Plan: Continue with atorvastatin (8) Hypertension: Code(s): I10 - Essential (primary) hypertension Status: Chronic Assessment and Plan: Controlled Continue with metoprolol Monitor (9) Tobacco abuse: Code(s): Z72.0 - Tobacco use Status: Acute Assessment and Plan: was counseled on smoking cessation She reported pt smokes about 4 cigarettes a day (10) Seizure: Code(s): R56.9 - Unspecified convulsions Status: Acute Assessment and Plan: Continue with Keppra (11) CVA (cerebral vascular accident): Qualifiers: CVA mechanism: thrombosis Laterality of affected vessel: left Code(s): I63.9 - Cerebral infarction, unspecified Status: Acute Assessment and Plan: Continue with patient's Plavix, statin (12) Urinary retention: Code(s): R33.9 - Retention of urine, unspecified Status: Acute Assessment and Plan: Patient had urinary retention on 06/17/2021 within distended bladder. Bladder scan showed greater than 1000 cc of urine. Matthews catheter was placed and removed 1200 initially and was clamped to prevent bladder spasming
[2021-06-18] MEDS: INSULIN ASPART (*BKC) 100 UNITS/ML SUB-Q (12:53)
[2021-06-18] MEDS: SODIUM CHLORIDE 0.9% IV 1,000 ML 100 ML IV CONT (15:00)
--- NOTE | 2021-06-18 15:10 | PC.NURSE ---
pt to dialysis via bed
--- NOTE | 2021-06-18 18:00 | PM.PNNEP ---
Progress Note: A&P Assessment and Plan (1) End stage renal disease: Code(s): N18.6 - End stage renal disease Status: Chronic Assessment and Plan: HD today and continue M/W/F schedule while hospitalized follow electrolytes, volume status, and clearance (2) Pneumonia: Qualifiers: Laterality: unspecified laterality Lung location: unspecified part of lung Pneumonia type: due to unspecified organism Qualified Code(s): J18.9 - Pneumonia, unspecified organism Code(s): J18.9 - Pneumonia, unspecified organism Status: Acute Assessment and Plan: as evidenced by imaging on admission on antibiotics continues supplemental oxygen and pulmonary toliet concern that there may be a component of aspiration clinical improvement noted (3) Hypertension: Code(s): I10 - Essential (primary) hypertension Status: Chronic Assessment and Plan: reasonable control at this time follow trend of hemodynamics (4) A-fib: Code(s): I48.91 - Unspecified atrial fibrillation Status: Acute Assessment and Plan: paced (pacemaker in place) on anticoagulation (5) Anemia: Code(s): D64.9 - Anemia, unspecified Status: Chronic Assessment and Plan: due to ESRD along with acute illness Epogen with HD follow trend of H/H (6) CVA (cerebral vascular accident): Qualifiers: CVA mechanism: thrombosis Laterality of affected vessel: left Code(s): I63.9 - Cerebral infarction, unspecified Status: Acute Assessment and Plan: chronic issue right sided weakness noted Will continue to follow. Subjective Date/time seen: 06/18/21 18:00 Tolerating dialysis treatment at the time of my visit (seen on HD at 5:40PM); no apparent distress noted; able to nod to his head to yes/no questions; no events overnight or earlier this AM. Exam Narrative: General: ill-appearing male in NAD Heart: IRRR, normal S1 and S2; no rub Lungs: upper airway noise noted Abdomen: soft, nontender, nondistended, positive bowel sounds Extremities: no cyanosis or clubbing; no edema Skin: warm and intact Objective Data Vital Signs Vital Signs: Vital Signs Temp Pulse Resp BP Pulse Ox 06/18/21 18:00 70 137/39 L 06/18/21 17:45 69 140/54 L 06/18/21 17:30 68 127/57 L 06/18/21 17:15 69 121/52 L 06/18/21 17:00 70 124/60 06/18/21 16:45 69 122/55 L 06/18/21 16:30 69 136/59 L 06/18/21 16:15 74 144/91 H 06/18/21 16:08 69 145/67 H 06/18/21 16:02 36.5 C 70 18 127/40 L 06/18/21 14:51 65 20 06/18/21 14:35 62 20 06/18/21 14:10 36.4 C L 70 20 130/39 L 97 06/18/21 09:06 62 06/18/21 09:02 59 L 20 06/18/21 08:53 69 20 96 06/18/21 07:55 36.4 C 70 20 147/54 H 99 06/18/21 05:09 36.1 C L 70 16 141/41 H 100 06/18/21 04:59 69 20 06/17/21 22:00 36.7 C 71 20 132/39 L 100 06/17/21 21:17 67 20 06/17/21 21:14 69 06/17/21 21:13 69 93 06/17/21 21:06 69 20 Intake/Output Intake/Output: Intake & Output 06/15/21 06/16/21 06/17/21 06/18/21 23:59 23:59 23:59 23:59 Intake Total 980 852 6951 460 Output Total 2000 1050 150 Balance 750 -1390 -50 310 Meds/Results Medications: Active Medications Generic Name Dose Route Start Last Admin Trade Name Kandis PRDomi Reason Stop Dose Admin Acetaminophen 500 mg 06/15/21 21:00 06/17/21 21:14 Acetaminophen 500 Mg Tablet PO 07/15/21 20:59 500 mg HS SPIKE Administration Albuterol 2.5 mg 06/15/21 20:00 06/18/21 14:35 Albuterol Sulfate Neb 2.5 Mg/0.5 Ml Inh INHALATION 2.5 mg Q6HRT SPIKE Administration Apixaban 2.5 mg 06/15/21 17:00 06/18/21 09:06 Apixaban 2.5 Mg Tablet PO 2.5 mg BID SPIKE Administration Atorvastatin Calcium 80 mg 06/15/21 21:00 06/17/21 21:15 Atorvastatin 40 Mg Tablet PO 80 mg HS SPIKE Administration A
[2021-06-18] MEDS: EPOETIN ALFA-EPBX 10,000 UNITS/ML VIAL 10000 UNITS IV PUSH (18:05)
--- NOTE | 2021-06-18 18:54 | PC.NURSE ---
end of my shift, pt is still in dialysis, will pass on to next nurse meds needed on EMAR
[2021-06-18] MEDS: ATORVASTATIN 40 MG TABLET 80 MG PO (20:21)
[2021-06-18] MEDS: CLOPIDOGREL BISULFATE 75 MG TABLET PO (20:22)
[2021-06-18] MEDS: ACETAMINOPHEN 500 MG TABLET PO (20:22)
[2021-06-18] MEDS: diphenhydrAMINE HCl CAP 25 MG CAPSULE PO (20:23)
[2021-06-18] MEDS: GABAPENTIN 300 MG CAPSULE PO (20:23)
[2021-06-18] MEDS: TAMSULOSIN HCL 0.4 MG CAPSULE PO (20:23)
[2021-06-18 21:13] LABS: Glucose Point of Care 105 mg/dl (65-105)
[2021-06-19] VITALS (9 sets, daily range): BP systolic 142–144; BP diastolic 54–60; PULSE 62–89; RESP 14–20; TEMP 36.2–36.6; O2SAT 95–100
[2021-06-19] MEDS: ALBUTEROL SULFATE NEB 2.5 MG/0.5 ML INH INHALATION (01:42)
[2021-06-19] MEDS: IPRATROPIUM BR 0.02% INH SOLN 0.5 MG/2.5 ML VIAL INHALATION (01:42)
[2021-06-19 05:50] LABS: Basophils Percent Auto 0.8 % (0.2-1.2); Eosinophils Absolute Auto 0.1 K/mm3 (0-0.3); Eosinophils Percent Auto 2.5 % (0-4.4); Hematocrit 30.6 % (42.0-52.0); Hemoglobin 9.1 g/dL (14.0-18.0); Immature Granulocyte Absolute 0.02 K/mm3 (0.00-0.031); Immature Granulocyte Percent A 0.4 % (0-0.5); Lymphocytes Absolute Auto 0.85 K/mm3 (0.9-3.2); Lymphocytes Percent Auto 16.5 % (18.3-44.2); Mean Corpuscular HGB Conc 29.7 g/dl (32-36); Mean Corpuscular Hemoglobin 26.2 pg (26-34); Mean Corpuscular Volume 88.2 fl (80-100); Mean Platelet Volume 10.7 fl (7.4-10.4); Monocytes Absolute Auto 0.5 K/mm3 (0.1-0.6); Monocytes Percent Auto 9.5 % (2.6-8.5); Neutrophils Absolute Auto 3.6 K/mm3 (1.3-6.7); Neutrophils Percent Auto 70.3 % (45.5-73.1); Platelet Count Result 268 k/mm3 (150-375); Red Blood Count 3.47 M/mm3 (4.6-6.20); Red Cell Distribution Width 17.5 % (11.5-14.5); White Blood Count 5.2 K/mm3 (4.5-10.0)
[2021-06-19 06:19] LABS: Albumin Level 2.8 g/dL (3.5-5.1); Anion Gap 8 mmol/L (8-16); Blood Urea Nitrogen 13 mg/dL (9-20); Calcium 8.2 mg/dL (8.4-10.2); Carbon Dioxide 29 mmol/L (22-30); Chloride 103 mmol/L (98-107); Estimated CRCL calculation 22 ml/min; Estimated Glomerular Filt Rate 21; Glucose 94 mg/dL (65-110); Phosphorus 2.8 mg/dL (2.5-4.5); Potassium 3.8 mmol/L (3.4-5.0); Sodium 140 mmol/L (137-145)
[2021-06-19 06:59] LABS: Glucose Point of Care 76 mg/dl (65-105)
[2021-06-19] MEDS: VITAMIN B CMPLX/VIT C/FOLIC AC 1 CAPSULE 1 CAP BY MOUTH (08:33)
[2021-06-19] MEDS: SEVELAMER CARBONATE 800 MG TABLET PO ×3 (08:33→17:24)
[2021-06-19] MEDS: FLUoxetine HCL 20 MG CAPSULE 40 MG PO (08:33)
[2021-06-19] MEDS: levETIRAcetam 250 MG TABLET 750 MG PO ×2 (08:33→17:23)
[2021-06-19] MEDS: PANTOPRAZOLE 40 MG TABLET PO ×2 (08:34→17:23)
[2021-06-19] MEDS: CYANOCOBALAMIN 250 MCG TABLET PO (08:34)
[2021-06-19] MEDS: TAMSULOSIN HCL 0.4 MG CAPSULE PO (08:34)
[2021-06-19] MEDS: FOLIC ACID 0.4 MG TABLET PO ×3 (08:34→17:24)
[2021-06-19] MEDS: APIXABAN 2.5 MG TABLET PO ×2 (08:34→17:24)
[2021-06-19] MEDS: METOPROLOL TARTRATE 25 MG TABLET PO (08:34)
[2021-06-19] MEDS: SCOPOLAMINE 1.5 MG PATCH TRANSDERM (08:35)
[2021-06-19 08:36] LABS: Platelet Estimate Adequate (Adequate)
[2021-06-19 08:37] LABS: Anisocytosis 1+ (NORMAL); Hypochromasia 1+ (NORMAL)
[2021-06-19] MEDS: INSULIN GLARGINE (*BKC) 100 UNITS/ML 20 UNITS SUB-Q (08:38)
--- NOTE | 2021-06-19 11:49 | PCNFU ---
Nutrition Follow-Up Complete: Increased Protein needs as related to wounds as evidenced by deep tissue pressure ulcers. Goal: Adequate Intake of at least 75% of meals/supplements patient is progressing towards goal. We will continue current goal. Pt current nutrition is Renal Dialysis Diet/Soft and Bite Sized, Level 6 with Mildly Thick liquids, Level 6 Last recorded weight is 81.2 kg, down from 84.2 kg on admit. Bowel Motility:+BM reported 06/17 Labs Reviewed:Cr 3.0,GFR 21,Alb 2.8 Meds Noted:Zosyn, Protonix, Lantus, Keppra, Vit B12, Eliquis, Folic Acid. Additional Notes: Patient seen today for nutrition follow up. Oral Intake has been greater than 75% of meals, Patient is a feeder. Diet consistencies changed on 06/17. Bedside Swallow performed at that time. Agree with current diet orders. Monitoring: RD will monitor every 5 days.
[2021-06-19 13:06] LABS: Glucose Point of Care 120 mg/dl (65-105)
--- NOTE | 2021-06-19 16:23 | PM.DS ---
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 Since being discharged the patient had not received dialysis and was having some shortness of breath so he was brought back into the emergency room. Initial vitals show blood pressure slightly elevated 155/103, non tachycardic, increased respiratory rate at 28, afebrile, 95% on room air. Initial labs showed leukocytosis at 26,700, normocytic anemia with a hemoglobin of 11, hematocrit 37%, elevated neutrophils at 93%, ABG showing respiratory alkalosis with hypoxia noted. BMP shows normal electrolytes, elevated creatinine but he is on dialysis. Troponin within normal range. BNP greater than 35,000. Chest x-ray showed development of moderate left and small right basal pneumonia or edema. The patient was admitted into the hospital with fluid overload from not having dialysis as well as possible aspiration pneumonia given his history and leukocytosis. The patient was on broad-spectrum antibiotics and received dialysis with improvement of his breathing. His mental status improved over a few days and was back to his baseline. Pulmonology was consulted who recommended antibiotic treatment and discharge recommendations with Augmentin. During the patient's hospitalization he was found to have urinary retention retaining greater than 1200 cc of urine. A Matthews catheter was placed for a few days and tamsulosin was started. The patient had a voiding trial prior to discharge but due to end-stage renal disease on dialysis he only had 100 cc of urine in his bladder. Patient was discharged back to SNF facility to continue oral antibiotics for a few more days. Have the SNF monitor with bladder scans to make sure he is not having any more urinary retention. If still having urinary issues he will need to follow-up with a urologist. Recommend the patient follow-up with his neurologist in 1 week. The patient and understand and agree with the plan all questions answered. (2) Sepsis: Code(s): A41.9 - Sepsis, unspecified organism Status: Acute Assessment and Plan: (3) Pneumonia: Qualifiers: Laterality: unspecified laterality Lung location: unspecified part of lung Pneumonia type: due to unspecified organism Qualified Code(s): J18.9 - Pneumonia, unspecified organism Code(s): J18.9 - Pneumonia, unspecified organism Status: Acute Assessment and Plan: (4) DM (diabetes mellitus): Code(s): E11.9 - Type 2 diabetes mellitus without complications Status: Chronic Assessment and Plan: (5) Hemodialysis patient: Code(s): Z99.2 - Dependence on renal dialysis Status: Acute Assessment and Plan: (6) A-fib: Code(s): I48.91 - Unspecified atrial fibrillation Status: Acute Assessment and Plan: (7) Hyperlipidemia: Code(s): E78.5 - Hyperlipidemia, unspecified Status: Chronic Assessment and Plan: (8) Hypertension: Code(s): I10 - Essential (primary) hypertension Status: Chronic Assessment and Plan: (9) Tobacco abuse: Code(s): Z72.0 - Tobacco use Status: Acute Assessment and Plan: (10) Seizure: Code(s): R56.9 - Unspe
[2021-06-19 16:58] LABS: EDCOVIDSCREEN Negative (Negative)
[2021-06-19 17:01] LABS: Glucose Point of Care 184 mg/dl (65-105)
== END 2021-06-19 17:43 | DRG 871 ==
LOC: ANHED 11:04 → ANH2MED 17:23
PROVIDERS: Internal Medicine Nephrology; Nurse Practitioner; Admitting Provider Internal Medicine; Emergency Provider Emergency Medicine; PCP Family Medicine; Visit Provider Physician Assistant
DX: A41.9 Sepsis, unspecified organism (principal); J96.01 Acute respiratory failure with hypoxia; N18.6 End stage renal disease; J69.0 Pneumonitis due to inhalation of food and vomit; I13.2 Hypertensive heart and chronic kidney disease with heart failure and with stage 5 chronic kidney disease, or end stage renal disease; I69.351 Hemiplegia and hemiparesis following cerebral infarction affecting right dominant side; I48.20 Chronic atrial fibrillation, unspecified; E11.22 Type 2 diabetes mellitus with diabetic chronic kidney disease; Z20.822 Contact with and (suspected) exposure to COVID-19; E78.5 Hyperlipidemia, unspecified; R33.9 Retention of urine, unspecified; I25.10 Atherosclerotic heart disease of native coronary artery without angina pectoris; N40.0 Benign prostatic hyperplasia without lower urinary tract symptoms; K21.9 Gastro-esophageal reflux disease without esophagitis; D64.9 Anemia, unspecified; F17.210 Nicotine dependence, cigarettes, uncomplicated; I69.320 Aphasia following cerebral infarction; Z99.2 Dependence on renal dialysis; Z86.718 Personal history of other venous thrombosis and embolism; Z95.5 Presence of coronary angioplasty implant and graft; Z95.0 Presence of cardiac pacemaker; I50.9 Heart failure, unspecified
CPT/HCPCS: 36415; 36600; 71045; 80048; 80069; 80074; 80202; 81001; 82565; 82728; 82805; 82948; 83605; 83735; 83880; 84484; 85025; 85610; 85730; 86706; 87040; 87086; 87426; 92523; 92610; 93005; 94640; 97161; 97165; 99285; A9270; C9803; G0257; J1644; J1815; J1940; J1956; J2543; J3370; J7030; Q5106